=== PATIENT | male | born 1975 | race African-American/Black ===

== ENCOUNTER 2017-10-09 22:55 | Inpatient (IN) ==
[2017-10-09 23:29] LABS: Baso # (Auto) 0.1 th/mm3 (0.0-0.2); Baso % (Auto) 0.9 % (0.0-2.0); Eos # (Auto) 0.2 th/mm3 (0.0-0.4); Eos % (Auto) 1.7 % (0.0-4.0); Hematocrit 37.3 % (39.0-51.0); Hemoglobin 12.2 gm/dL (13.0-17.0); Lymph # (Auto) 4.9 th/mm3 (1.0-4.8); Lymph % (Auto) 53.8 % (9.0-44.0); Mean Corpuscular HGB Conc 32.7 % (32.0-36.0); Mean Corpuscular Hemoglobin 25.7 pg (27.0-34.0); Mean Corpuscular Volume 78.5 fL (80.0-100.0); Mono # (Auto) 1.4 th/mm3 (0.0-0.9); Mono % (Auto) 15.4 % (0.0-8.0); Neut # (Auto) 2.6 th/mm3 (1.8-7.7); Neut % (Auto) 28.2 % (16.0-70.0); Platelet Count 265 th/mm3 (150-450); Red Blood Count 4.75 mil/mm3 (4.50-5.90); Red Cell Distribution Width 16.5 % (11.6-17.2); White Blood Count 9.1 th/mm3 (4.0-11.0)
--- NOTE | 2017-10-09 23:37 | XR ---
EXAM DATE: 10/09/2017 11:26 PM EDT AGE/SEX: 42 years / Male INDICATIONS: Shortness of breath and congestion. CLINICAL DATA: This is the patient's initial encounter. Patient reports that signs and symptoms have been present for 2 weeks and indicates a pain score of 0/10. MEDICAL/SURGICAL HISTORY: None. None. COMPARISON: [facility] [place] 1[place] SINGLE AP, 09/29/2017. . FINDINGS: A single AP view of the chest is obtained. Cardiomegaly with small left pleural effusion and minimal left basilar density. Right lung clear The cardiomediastinal contours are unremarkable. Osseous stru ctures are intact. CONCLUSION: Cardiomegaly with left basilar density and small left pleural effusion Electronically signed by: Antony Kapadia MD 10/09/2017 11:36 PM EDT
[2017-10-09 23:44] LABS: Albumin 3.1 g/dL (3.4-5.0); Anion Gap 8 meq/L (5-15); Aspartate Aminotransferase 34 U/L (15-37); Blood Urea Nitrogen 14 mg/dL (7-18); Calcium 8.4 mg/dL (8.5-10.1); Carbon Dioxide 28.2 meq/L (21.0-32.0); Chloride 104 meq/L (98-107); Glomerular Filtration Rate 84 mL/min (>89); Glucose,Random 151 mg/dL (74-106); Lipase 140 U/L (73-393); Magnesium 1.9 mg/dL (1.5-2.5); Potassium 3.9 meq/L (3.5-5.1); Sodium 140 meq/L (136-145)
[2017-10-09 23:45] LABS: Activated Partial Thrombo Time 25.7 sec (24.3-30.1); INR 1.1 Ratio; Prothrombin Time 11.4 sec (9.8-11.6)
[2017-10-09 23:47] LABS: D-Dimer 1.44 mg/L FEU (0.00-0.50)
--- NOTE | 2017-10-09 23:49 | ED ---
HPI General Chief complaint: Extremity Problem,Nontraumatic Stated complaint: leg swelling Time Seen by Provider: 10/09/17 23:13 Source: patient Limitations: no limitations History of Present Illness HPI narrative: The patient is a 42 year old male who presents to the [facility] emergency department with a history of lower extremity edema that he reports is been going on for approximately 1 week. He reports that he was seen in the emergency department on September 29 related to the lower extremity edema as well as nasal discharge, sinus pressure over the right side of his face and right ear, along with a cough productive of green sputum. The patient reports that he had a chest x-ray done and was diagnosed with pneumonia. He was sent home with a prescription for antibiotic, however he reports that he did not fill the prescription due to cost. He denies having any recent fevers. He reports that the shortness of breath that he was previously experiencing has improved. He denies having any chest pain or chest pressure. He reports that initially he thought the lower extremity edema was related to being on his feet frequently as he had been working 2 jobs for 2 weeks, however he is no longer working 2 jobs and continues to have the edema. He reports that he continues to also have green nasal discharge from the right nare, a cough at times productive of green sputum, and facial pressure. He denies having any temperature intolerances. He reports that over the last year he has had weight loss without trying, however he is unsure how much as he does not normally weigh himself. On review of systems otherwise, the patient denies having any neck pain, abdominal pain, vomiting, diarrhea, urinary symptoms, or neurologic symptoms. Related Data Home Medications Medication Instructions Recorded Confirmed No Known Home Medications 10/09/17 10/09/17 Allergies Allergy/AdvReac Type Severity Reaction Status Date / Time No Known Allergies Allergy Verified 10/09/17 23:02 Review of Systems ROS: all other systems reviewed are negative (Except for that which was mentioned in the HPI.) FOR[facility]LY [facility] Family History Family History Other Family history normal Social History Social History Substance History: Active Abuse Second Hand Smoke Exposure: No Smoking Status: Current some day smoker Tobacco Type: Cigarettes How Often Do You Have a Drink Containing Alcohol: Monthly or less Recent Travel in [facility] within the Last 8 Weeks: No Recent Out of Country Travel within the Last 8 Weeks: No Substance Abuse Detail Marijuana: Substance Use Status: Active Immunization History Tetanus Immunization: Unsure Hx Influenza Vaccine This Season: No Exam Const General: cooperative, no acute distress and well developed Nutritional Appearance: well nourished Orientation: alert, awake and oriented x3 HENMT Head: normocephalic and atraumatic Nose: no nasal discharge and no epistaxis Mouth: moist mucous membranes Throat: posterior oropharynx normal and uvula midline Eyes Sclera: normal sclerae Pupils: PERRL Neck Neck: no meningeal signs, trachea midline and no JVD Resp Effort & Inspection: no use of accessory muscles Auscultation: clear to auscultation bilaterally (Decreased breath sounds audible in bilateral lung bases.), no crackles, no rhonchi and no wheezes Cardio Rate: tachycardic (Sinus tachycardia in the low 100s, no pulse deficits to the extremities on simultaneous auscultation and palpation of his radial artery) Rhythm: regular rhythm Heart Sounds: no gallops, no murmurs and no rubs GI Inspection: non-distended Palpation: soft, no hepatosplenomegaly and nontender Skin General: dry skin (warm) Neuro General: alert, awake and oriented x3 Cranial Nerves: other (No facial asymmetry.) Speech: speech normal Motor: no movement abnormalities noted Extrem General: normal to inspection (No calf tenderness on palpation. Negative Homans sign. No palpable cords. 2+ pulses in all 4 extremities.), no clubbing , no cyanosis and edema (2+ edema bilateral lower extremities.) Laterality: bilaterally Psych Mood: congruent mood Affect: normal affect Judgment: judgment good Course Consultations Consultation #1: The patient's case including history, pertinent physical examination findings, and laboratory studies were discussed with Dr. Dorantes. It was agreed that the patient would be admitted to the hospitalist service. Initial Documented Vital Signs Temperature 98.4 F 10/09/17 23:00 Pulse Rate 103 H 10/09/17 23:00 Respiratory Rate 18 10/09/17 23:00 Blood Pressure 126/90 10/09/17 23:00 Pulse Oximetry 99 10/09/17 23:00 Last Documented Vital Signs Temperature 98.2 F 10/10/17 11:52 Pulse Rate 93 H 10/10/17 12:00 Respiratory Rate 16 10/10/17 11:52 Blood Pressure 131/90 10/10/17 11:52 Pulse Oximetry 99 10/10/17 11:52 Medical Decision Making MDM Narrative Medical decision making narrative: During the course of the patient's emergency department visit, the patient's history, examination, and differential diagnosis were reviewed with the patient. The patient was placed on a alarm security or surveillance monitor with oximetry and frequent blood pressure monitoring. The patient had IV access obtained and blood work sent for analysis. A diagnostic evaluation was started regarding the patient's lower extremity edema, with reported shortness of breath a week ago diagnosed as pneumonia, treated with a course of antibiotic, however the patient reports that he was not able to fill the prescription due to cost. The patient's diagnostic evaluation is remarkable for a white count of 9.1, monocytosis at 15.4, platelets are 265 with a hemoglobin of 12.2, PT 11.4, PTT 25.7, d-dimer is elevated at 1.44, CTA to rule out PE was ordered. Chemistry is remarkable for a troponin I of less than 0.02, glucose 151, GFR of 84, calcium 8.4, BNP is elevated at 1700, CPK is within normal limits at 90. TSH is within normal limits. Radiologic studies are remarkable for a chest x-ray that shows cardiomegaly with left basilar density and small left pleural effusion, ultrasound of bilateral lower extremities reveals no evidence of DVT, CTA to rule out PE shows cardiomegaly with small bilateral pleural effusions, no pulmonary embolism. The patient was given Lasix 40 mg IV, aspirin 324 mg p.o. 1. The patient will be admitted to the hospital for new onset congestive heart failure evaluation and treatment. The patient's results were discussed with the patient, including the plan of care. I explained that further testing and/ or monitoring is indicated based on the patient's history, examination, and/ or laboratory findings. Therefore, I recommended admission for additional evaluation. The patient expressed understanding and was agreeable with this plan. The patient was admitted to the hospital in guarded condition and sent to a bed under the care of [facility] service. Differential Diagnosis Differential Diagnosis: Pneumonia, versus new onset congestive heart failure, versus acute coronary syndrome, versus cardiomyopathy related to endocrine disorder, versus cardiac arrhythmia, versus valvular abnormality Medical Records Medical records reviewed: Yes I reviewed the patient's medical records. Lab Data Lab results reviewed: Yes I reviewed the patient's lab results. Result diagrams: 10/09/17 23:10 10/09/17 23:10 Lab Results 10/09/17 10/09/17 10/09/17 Range/Units 23:10 23:10 23:10 WBC 9.1 (4.0-11.0) th/mm3 RBC 4.75 (4.50-5.90) mil/mm3 Hgb 12.2 L (13.0-17.0) gm/dL Hct 37.3 L (39.0-51.0) % MCV 78.5 L (80.0-100.0) fL MCH 25.7 L (27.0-34.0) pg MCHC 32.7 (32.0-36.0) % RDW 16.5 (11.6-17.2) % Plt Count 265 (150-450) th/mm3 MPV 8.0 (7.0-11.0) fL Neut % (Auto) 28.2 (16.0-70.0) % Lymph % (Auto) 53.8 H (9.0-44.0) % [place] % (Auto) 15.4 H (0.0-8.0) % Eos % (Auto) 1.7 (0.0-4.0) % Baso % (Auto) 0.9 (0.0-2.0) % Neut # (Auto) 2.6 (1.8-7.7) th/mm3 Lymph # (Auto) 4.9 H (1.0-4.8) th/mm3 [place] # (Auto) 1.4 H (0.0-0.9) th/mm3 Eos # (Auto) 0.2 (0.0-0.4) th/mm3 Baso # (Auto) 0.1 (0.0-0.2) th/mm3 WBC Differential . Differential Comment Auto diff final PT 11.4 (9.8-11.6) sec INR 1.1 Ratio APTT 25.7 (24.3-30.1) sec D-Dimer Quant (PE/DVT) 1.44 H (0.00-0.50) mg/L FEU Sodium 140 (136-145) meq/L Potassium 3.9 (3.5-5.1) meq/L Chloride 104 (98-107) meq/L Carbon Dioxide 28.2 (21.0-32.0) meq/L Anion Gap 8 (5-15) meq/L BUN 14 (7-18) mg/dL Creatinine 1.15 (0.60-1.30) mg/dL Estimated GFR 84 L (>89) mL/min Random Glucose 151 H (74-106) mg/dL Hemoglobin A1c (4.3-6.0) % Calcium 8.4 L (8.5-10.1) mg/dL Magnesium 1.9 (1.5-2.5) mg/dL Total Bilirubin 0.8 (0.2-1.0) mg/dL AST 34 (15-37) U/L ALT 52 (12-78) U/L Alkaline Phosphatase 116 (45-117) U/L Total Creatine Kinase 102 (39-308) U/L CK-MB (CK-2) 1.0 (0.5-3.6) ng/mL Troponin I 0.02 (0.02-0.05) ng/mL B-Natriuretic Peptide (0-100) pg/mL Total Protein 8.1 (6.4-8.2) g/dL Albumin 3.1 L (3.4-5.0) g/dL Lipase 140 (73-393) U/L TSH 1.810 (0.358-3.740) uIU/mL Free T4 (0.76-1.46) ng/dL 10/09/17 10/10/17 10/10/17 Range/Units 23:10 06:00 12:15 WBC (4.0-11.0) th/mm3 RBC (4.50-5.90) mil/mm3 Hgb (13.0-17.0) gm/dL Hct (39.0-51.0) % MCV (80.0-100.0) fL MCH (27.0-34.0) pg MCHC (32.0-36.0) % RDW (11.6-17.2) % Plt Count (150-450) th/mm3 MPV (7.0-11.0) fL Neut % (Auto) (16.0-70.0) % Lymph % (Auto) (9.0-44.0) % [place] % (Auto) (0.0-8.0) % Eos % (Auto) (0.0-4.0) % Baso % (Auto) (0.0-2.0) % Neut # (Auto) (1.8-7.7) th/mm3 Lymph # (Auto) (1.0-4.8) th/mm3 [place] # (Auto) (0.0-0.9) th/mm3 Eos # (Auto) (0.0-0.4) th/mm3 Baso # (Auto) (0.0-0.2) th/mm3 WBC Differential Differential Comment PT (9.8-11.6) sec INR Ratio APTT (24.3-30.1) sec D-Dimer Quant (PE/DVT) (0.00-0.50) mg/L FEU Sodium (136-145) meq/L Potassium (3.5-5.1) meq/L Chloride (98-107) meq/L Carbon Dioxide (21.0-32.0) meq/L Anion Gap (5-15) meq/L BUN (7-18) mg/dL Creatinine (0.60-1.30) mg/dL Estimated GFR (>89) mL/min Random Glucose (74-106) mg/dL Hemoglobin A1c (4.3-6.0) % Calcium (8.5-10.1) mg/dL Magnesium (1.5-2.5) mg/dL Total Bilirubin (0.2-1.0) mg/dL AST (15-37) U/L ALT (12-78) U/L Alkaline Phosphatase (45-117) U/L Total Creatine Kinase 87 90 (39-308) U/L CK-MB (CK-2) (0.5-3.6) ng/mL Troponin I Less than 0.02 L Less than 0.02 L (0.02-0.05) ng/mL B-Natriuretic Peptide 1700 H (0-100) pg/mL Total Protein (6.4-8.2) g/dL Albumin (3.4-5.0) g/dL Lipase (73-393) U/L TSH (0.358-3.740) uIU/mL Free T4 (0.76-1.46) ng/dL 10/10/17 10/10/17 10/10/17 Range/Units 12:15 12:15 14:24 WBC (4.0-11.0) th/mm3 RBC (4.50-5.90) mil/mm3 Hgb (13.0-17.0) gm/dL Hct (39.0-51.0) % MCV (80.0-100.0) fL MCH (27.0-34.0) pg MCHC (32.0-36.0) % RDW (11.6-17.2) % Plt Count (150-450) th/mm3 MPV (7.0-11.0) fL Neut % (Auto) (16.0-70.0) % Lymph % (Auto) (9.0-44.0) % [place] % (Auto) (0.0-8.0) % Eos % (Auto) (0.0-4.0) % Baso % (Auto) (0.0-2.0) % Neut # (Auto) (1.8-7.7) th/mm3 Lymph # (Auto) (1.0-4.8) th/mm3 [place] # (Auto) (0.0-0.9) th/mm3 Eos # (Auto) (0.0-0.4) th/mm3 Baso # (Auto) (0.0-0.2) th/mm3 WBC Differential Differential Comment PT (9.8-11.6) sec INR Ratio APTT (24.3-30.1) sec D-Dimer Quant (PE/DVT) (0.00-0.50) mg/L FEU Sodium (136-145) meq/L Potassium (3.5-5.1) meq/L Chloride (98-107) meq/L Carbon Dioxide (21.0-32.0) meq/L Anion Gap (5-15) meq/L BUN (7-18) mg/dL Creatinine (0.60-1.30) mg/dL Estimated GFR (>89) mL/min Random Glucose (74-106) mg/dL Hemoglobin A1c 7.8 H (4.3-6.0) % Calcium (8.5-10.1) mg/dL Magnesium (1.5-2.5) mg/dL Total Bilirubin (0.2-1.0) mg/dL AST (15-37) U/L ALT (12-78) U/L Alkaline Phosphatase (45-117) U/L Total Creatine Kinase (39-308) U/L CK-MB (CK-2) (0.5-3.6) ng/mL Troponin I (0.02-0.05) ng/mL B-Natriuretic Peptide (0-100) pg/mL Total Protein (6.4-8.2) g/dL Albumin (3.4-5.0) g/dL Lipase (73-393) U/L TSH 2.890 (0.358-3.740) uIU/mL Free T4 1.25 (0.76-1.46) ng/dL Imaging Data Radiologist's impression: Chest X-Ray 10/09/17 23:11 CONCLUSION: Cardiomegaly with left basilar density and small left pleural effusion Venous Doppler Study 10/09/17 23:12 CONCLUSION: 1. No DVT in either lower extremity Chest CTA 10/10/17 00:14 CONCLUSION: 1. Cardiomegaly and small bilateral pleural effusions. 2. No pulmonary embolism. ECG Data Attestation: I personally reviewed and interpreted this ECG as follows: Interpretation: The patient had a EKG done on arrival that shows a sinus tachycardia rate of 103, QRS duration 109 ms, QTC [address]-T wave abnormalities are noted. The patient is noted to have downsloping ST segments in lead II, V4, V5, V6, T-wave inversions in lead I, 2, aVL, V4, V5, V6. No acute ST segment elevation. Discharge Plan Discharge Disposition Patient Disposition: 30 Still Patient Discharge Details Diagnosis: New onset of congestive heart failure Physicians Team ED Provider: Paula Turner Primary Care Provider: Primary Care Rachel Donohue Attending Provider: Phong Childers Other Providers: Rei Alejo Discharge Interventions Interventions: ED Discharge Assessment Last Done: 10/10/17 10:25 Status ED Status: Left Department Discharge Information Discharge Date/Time: 10/10/17 10:51
[2017-10-09 23:56] LABS: Alanine Aminotransferase 52 U/L (12-78); Alkaline Phosphatase 116 U/L (45-117); Creatine Kinase 102 U/L (39-308); Total Protein 8.1 g/dL (6.4-8.2); Troponin I 0.02 ng/mL (0.02-0.05)
--- NOTE | 2017-10-10 01:02 | US ---
EXAM DATE: 10/10/2017 12:41 AM EDT AGE/SEX: 42 years / Male INDICATIONS: Bilateral leg swelling. CLINICAL DATA: This is the patient's initial encounter. Patient reports that signs and symptoms have been present for 2 weeks and indicates a pain score of 0/10. MEDICAL/SURGICAL HISTORY: . Bilateral leg swelling. None. COMPARISON: No prior exams available for comparison. TECHNIQUE: Venous ultrasound of both lower extremities was performed from the inguinal ligament to t he proximal calf. Real-time, color Doppler and spectral tracing, compression and augmentation techni ques were used. FINDINGS: Right Leg: Normal compression of the deep venous system from the inguinal region to the proximal trena f. No echogenic clot is seen. Normal response of the venous system to augmentation and respiration. Left Leg: Normal compression of the deep venous system from the inguinal region to the proximal calf . No echogenic clot is seen. Normal response of the venous system to augmentation and respiration. Other: None. CONCLUSION: 1. No DVT in either lower extremity Electronically signed by: Antony Kapadia MD 10/10/2017 1:01 AM EDT
--- NOTE | 2017-10-10 02:03 | CT ---
EXAM DATE: 10/10/2017 1:20 AM EDT AGE/SEX: 42 years / Male INDICATIONS: Pneumonia with swelling in legs. Elevated D-Dimer. CLINICAL DATA: This is the patient's initial encounter. Patient reports that signs and symptoms have been present for 3 days and indicates a pain score of 0/10. MEDICAL/SURGICAL HISTORY: None. None. RADIATION DOSE: 23.45 CTDI (mGy) COMPARISON: No prior exams available for comparison. TECHNIQUE: Volumetric scanning was performed using a multi-row detector CT scanner during bolus infu werner of 80 ml Omnipaque 350 (iohexol) nonionic water-soluble contrast as a single exam dose. The silke a was post processed with a variety of visualization algorithms including full volume maximum intensi ty projection and sliding thin slab reformation. Using automated exposure control and adjustment of t he mA and/or kV according to patient size, radiation dose was kept as low as reasonably achievable to obtain optimal diagnostic quality images. DICOM format image data is available electronically for r eview and comparison. FINDINGS: Pulmonary Arteries: No filling defects are seen in the pulmonary arteries out to the subsegmental ve ssels. The left and right pulmonary arteries are normal in diameter. Lung: No infiltrates seen. Effusion: Small bilateral pleural effusions. Mediastinum: No evidence of mediastinal or hilar adenopathy. Cardiomegaly Other: The axilla is unremarkable. CONCLUSION: 1. Cardiomegaly and small bilateral pleural effusions. 2. No pulmonary embolism. Electronically signed by: Antony Kapadia MD 10/10/2017 2:02 AM EDT
--- NOTE | 2017-10-10 02:40 | P.HP ---
History of Present Illness Service: [facility] Primary Care Physician: No Primary Care Physician History of Present Illness: 42-year-old male with no significant past medical history presents the emergency department for the evaluation of lower extremity edema. The patient reports he was seen last week in the emergency department where he was diagnosed with possible pneumonia, given a prescription for Levaquin which she did not fill secondary to financial reasons, and sent home. He reports that he has had shortness of breath for the past 2-3 weeks with orthopnea and paroxysmal nocturnal dyspnea. He has had bilateral lower extremity weakness for the past several weeks which has been worsening. He denies any chest pain. No fever/chills. Positive sinus pressure and productive cough. No abdominal pain. No nausea/vomiting/diarrhea. Review of Systems All other systems reviewed negative except as stated in HPI PMFSH - History History Provided By: Patient - Medical History Medical History: Medical History (Last Reviewed 10/09/17 @ 23:02 by Ruben Pate) Patient denies medical problems - Surgical History Surgical History: Surgical History (Last Reviewed 10/09/17 @ 23:02 by Ruben Pate) No history of previous surgery - Family History Family History: Family History (Last Updated 10/10/17 @ 02:35 by Tari Dorantes MD) Other Family history normal - Tobacco History Second Hand Smoke Exposure: Yes Tobacco Use In Past 30 Days: Yes Smoking Status: Current every day smoker Tobacco Type: Cigarettes, Pipe - Alcohol History How Often Do You Have a Drink Containing Alcohol: Monthly or less - Substance Use History Substance History: Active Abuse - Substance Use Type Marijuana Status: Active - Travel History Recent Travel in the [place] Within the Last 8 Weeks: No Recent Travel Out of the Country Within the Last 8 Weeks: No - Immunization History Tetanus Immunization: Unsure Hx Influenza Vaccine This Season: No Medications and Allergies Active Medications: Active Medications Sodium Chloride (Ns Flush) 2 ml IV.FLUSH UNSCH PRN PRN Reason: FLUSH AFTER USING IV ACCESS Allergies Allergy/AdvReac Type Severity Reaction Status Date / Time No Known Allergies Allergy Verified 10/09/17 23:02 Home Medications Medication Instructions Recorded Confirmed Type No Known Home Medications 10/09/17 10/09/17 History Exam Vital signs: Vital Signs 10/09/17 23:00 Temperature 98.4 F Pulse Rate 103 H Respiratory Rate 18 Blood Pressure 126/90 Pulse Oximetry 99 Intake & Output 10/09/17 10/09/17 10/10/17 06:59 18:59 06:59 Weight 100 kg Narrative: Gen.: No acute distress Head: Normocephalic. Atraumatic. EENT: Pupils equal round and reactive to light. Nose without drainage. Airway intact. Throat without injection. Cardiovascular: Regular rate and rhythm. No murmurs, rubs or gallops. Respiratory: Lungs clear to auscultation bilaterally. No wheezes or rhonchi. Abdomen: Soft, nontender, nondistended. No peritoneal signs. Musculoskeletal: No gross deformities. No edema. Skin: No obvious rashes or erythema. Neuro: Sensory and motor grossly intact. Cranial nerves II through XII grossly intact. Results - Labs CBC & Chem 7: 10/09/17 23:10 10/09/17 23:10 Labs: Laboratory Results - last 24 hr 10/09/17 10/09/17 10/09/17 23:10 23:10 23:10 WBC 9.1 RBC 4.75 Hgb 12.2 L Hct 37.3 L MCV 78.5 L MCH 25.7 L MCHC 32.7 RDW 16.5 Plt Count 265 MPV 8.0 Neut % (Auto) 28.2 Lymph % (Auto) 53.8 H [place] % (Auto) 15.4 H Eos % (Auto) 1.7 Baso % (Auto) 0.9 Neut # (Auto) 2.6 Lymph # (Auto) 4.9 H [place] # (Auto) 1.4 H Eos # (Auto) 0.2 Baso # (Auto) 0.1 WBC Differential . Differential Comment Auto diff final PT 11.4 INR 1.1 APTT 25.7 D-Dimer Quant (PE/DVT) 1.44 H Sodium 140 Potassium 3.9 Chloride 104 Carbon Dioxide 28.2 Anion Gap 8 BUN 14 Creatinine 1.15 Estimated GFR 84 L Random Glucose 151 H Calcium 8.4 L Magnesium 1.9 Total Bilirubin 0.8 AST 34 ALT 52 Alkaline Phosphatase 116 Total Creatine Kinase 102 CK-MB (CK-2) 1.0 Troponin I 0.02 B-Natriuretic Peptide Total Protein 8.1 Albumin 3.1 L Lipase 140 TSH 1.810 10/09/17 23:10 WBC RBC Hgb Hct MCV MCH MCHC RDW Plt Count MPV Neut % (Auto) Lymph % (Auto) [place] % (Auto) Eos % (Auto) Baso % (Auto) Neut # (Auto) Lymph # (Auto) [place] # (Auto) Eos # (Auto) Baso # (Auto) WBC Differential Differential Comment PT INR APTT D-Dimer Quant (PE/DVT) Sodium Potassium Chloride Carbon Dioxide Anion Gap BUN Creatinine Estimated GFR Random Glucose Calcium Magnesium Total Bilirubin AST ALT Alkaline Phosphatase Total Creatine Kinase CK-MB (CK-2) Troponin I B-Natriuretic Peptide 1700 H Total Protein Albumin Lipase TSH - Imaging Impressions Chest X-Ray 10/09/17 23:11 CONCLUSION: Cardiomegaly with left basilar density and small left pleural effusion Venous Doppler Study 10/09/17 23:12 CONCLUSION: 1. No DVT in either lower extremity Chest CTA 10/10/17 00:14 CONCLUSION: 1. Cardiomegaly and small bilateral pleural effusions. 2. No pulmonary embolism. Caprini VTE Risk Assessment Caprini VTE Risk Assessment: No/Low Risk (score <= 1) Caprini Risk Assessment Model: Point Value = 1 Point Value = 2 Point Value = 3 Point Value = 5 Age 41-60 Minor surgery BMI > 25 kg/m2 Swollen legs Varicose veins or History of unexplained or recurrent spontaneous Oral contraceptives or hormone replacement Sepsis (< 1 month) Serious lung disease, including pneumonia (< 1 month) Abnormal pulmonary function Acute myocardial infarction Congestive heart failure (< 1 month) History of inflammatory bowel disease Medical patient at bed rest Age 61-74 Arthroscopic surgery Major open surgery (> 45 min) Laparoscopic surgery (> 45 min) Malignancy Confined to bed (> 72 hours) Immobilizing plaster cast Central venous access Age >= 75 History of VTE Family history of VTE Factor V Leiden Prothrombin [id number] Lupus anticoagulant Anticardiolipin antibodies Elevated serum homocysteine Heparin-induced thrombocytopenia Other congenital or acquired thrombophilia Stroke (< 1 month) Elective arthroplasty Hip, pelvis, or leg fracture Acute spinal cord injury (< 1 month) Prophylaxis Regimen: Total Risk Factor Score Risk Level Prophylaxis Regimen 0-1 Low Early ambulation 2 Moderate Order ONE of the following: *Sequential Compression Device (SCD) *Heparin 5000 units SQ BID 3-4 Higher Order ONE of the following medications: *Heparin 5000 units SQ TID *Enoxaparin/Lovenox 40 mg SQ daily (WT < 150 kg, CrCl > 30 mL/min) *Enoxaparin/Lovenox 30 mg SQ daily (WT < 150 kg, CrCl > 10-29 mL/min) *Enoxaparin/Lovenox 30 mg SQ BID (WT < 150 kg, CrCl > 30 mL/min) AND/OR *Sequential Compression Device (SCD) 5 or more Highest Order ONE of the following medications: *Heparin 5000 units SQ TID (Preferred with Epidurals) *Enoxaparin/Lovenox 40 mg SQ daily (WT < 150 kg, CrCl > 30 mL/min) *Enoxaparin/Lovenox 30 mg SQ daily (WT < 150 kg, CrCl > 10-29 mL/min) *Enoxaparin/Lovenox 30 mg SQ BID (WT < 150 kg, CrCl > 30 mL/min) AND *Sequential Compression Device (SCD) Assessment and Plan - Plan Assessment/plan: 1. New onset CHF Patient with BNP of 1700 Symptoms consistent with CHF Chest x-ray significant for cardiomegaly with small left density and pleural effusion, personally reviewed EKG significant for downsloping ST segments in V4-V6 and T-wave inversions in I , II, V4-V6 Given EKG abnormalities and nothing for comparison, ACS rule out pending IV Lasix Echo pending Cardiology consulted, appreciate recommendations FEN N.p.o. Electrolytes: Monitor and replete as needed
[2017-10-10 07:39] LABS: Creatine Kinase 87 U/L (39-308)
--- NOTE | 2017-10-10 09:41 | P.PNIM ---
Subjective Interval history: 42-year-old male with no significant past medical history presents the emergency department for the evaluation of lower extremity edema. The patient reports he was seen last week in the emergency department where he was diagnosed with possible pneumonia, given a prescription for Levaquin which she did not fill secondary to financial reasons, and sent home. He reports that he has had shortness of breath for the past 2-3 weeks with orthopnea and paroxysmal nocturnal dyspnea. He has had bilateral lower extremity weakness for the past several weeks which has been worsening. He denies any chest pain. No fever/chills. Positive sinus pressure and productive cough. No abdominal pain. No nausea/vomiting/diarrhea. 10-10 AWAIT CARDIAC EVALUATIONS STATES IS IS URINATING WELL JOSE F [facility] Physical Exam Vital signs: Vital Signs 10/09/17 23:00 10/10/17 08:00 Temperature 98.4 F 97.8 F Pulse Rate 103 H 98 H Respiratory Rate 18 20 Blood Pressure 126/90 127/87 Pulse Oximetry 99 97 Intake & Output 10/09/17 10/10/17 10/10/17 18:59 06:59 18:59 Intake Total 0 / 0 Balance 0 / 0 Weight 100 kg Intake: Oral 0 / 0 Narrative: Awake alert and oriented 3 talkative and cooperative Gen.: No acute distress Head: Normocephalic. Atraumatic. EENT: Pupils equal round and reactive to light. Nose without drainage. Airway intact. Throat without injection. Neck is supple no obvious JVD Cardiovascular: Regular rate and rhythm. No murmurs, rubs or gallops. S1-S2 no S3 or S4 Respiratory: Lungs clear to auscultation bilaterally. No wheezes or rhonchi. Abdomen: Soft, nontender, nondistended. No peritoneal signs. Musculoskeletal: No gross deformities. Maybe +1 edema Skin: No obvious rashes or erythema. Neuro: Sensory and motor grossly intact. Cranial nerves II through XII grossly intact. Insight and judgment is good Mood and behavior is somewhat appropriate Results - Labs CBC & Chem 7: 10/09/17 23:10 10/09/17 23:10 Laboratory Results - last 24 hr 10/09/17 10/09/17 10/09/17 23:10 23:10 23:10 WBC 9.1 RBC 4.75 Hgb 12.2 L Hct 37.3 L MCV 78.5 L MCH 25.7 L MCHC 32.7 RDW 16.5 Plt Count 265 MPV 8.0 Neut % (Auto) 28.2 Lymph % (Auto) 53.8 H [place] % (Auto) 15.4 H Eos % (Auto) 1.7 Baso % (Auto) 0.9 Neut # (Auto) 2.6 Lymph # (Auto) 4.9 H [place] # (Auto) 1.4 H Eos # (Auto) 0.2 Baso # (Auto) 0.1 WBC Differential . Differential Comment Auto diff final PT 11.4 INR 1.1 APTT 25.7 D-Dimer Quant (PE/DVT) 1.44 H Sodium 140 Potassium 3.9 Chloride 104 Carbon Dioxide 28.2 Anion Gap 8 BUN 14 Creatinine 1.15 Estimated GFR 84 L Random Glucose 151 H Calcium 8.4 L Magnesium 1.9 Total Bilirubin 0.8 AST 34 ALT 52 Alkaline Phosphatase 116 Total Creatine Kinase 102 CK-MB (CK-2) 1.0 Troponin I 0.02 B-Natriuretic Peptide Total Protein 8.1 Albumin 3.1 L Lipase 140 TSH 1.810 10/09/17 10/10/17 23:10 06:00 WBC RBC Hgb Hct MCV MCH MCHC RDW Plt Count MPV Neut % (Auto) Lymph % (Auto) [place] % (Auto) Eos % (Auto) Baso % (Auto) Neut # (Auto) Lymph # (Auto) [place] # (Auto) Eos # (Auto) Baso # (Auto) WBC Differential Differential Comment PT INR APTT D-Dimer Quant (PE/DVT) Sodium Potassium Chloride Carbon Dioxide Anion Gap BUN Creatinine Estimated GFR Random Glucose Calcium Magnesium Total Bilirubin AST ALT Alkaline Phosphatase Total Creatine Kinase 87 CK-MB (CK-2) Troponin I Less than 0.02 L B-Natriuretic Peptide 1700 H Total Protein Albumin Lipase TSH - Imaging Impressions Chest X-Ray 10/09/17 23:11 CONCLUSION: Cardiomegaly with left basilar density and small left pleural effusion Venous Doppler Study 10/09/17 23:12 CONCLUSION: 1. No DVT in either lower extremity Chest CTA 10/10/17 00:14 CONCLUSION: 1. Cardiomegaly and small bilateral pleural effusions. 2. No pulmonary embolism. Assessment and Plan - Plan 1. New onset CHF Patient with BNP of 1700 Symptoms consistent with CHF Chest x-ray significant for cardiomegaly with small left density and pleural effusion, personally reviewed EKG significant for downsloping ST segments in V4-V6 and T-wave inversions in I , II, V4-V6 Given EKG abnormalities and nothing for comparison, ACS rule out pending IV Lasix Echo pending Cardiology consulted, appreciate recommendations AM LABS AWAIT ECHO FEN N.p.o. Electrolytes: Monitor and replete as needed Code Status: FULL CODE Discussed Condition With: RN AND PT Discharge Planning: PENDING CARDIAC CLEARANCE
--- NOTE | 2017-10-10 10:57 | P.CONCA ---
History of Present Illness Primary Care Provider: No Primary Care Physician PMFSH - History History Provided By: Patient - Medical History Medical History: Medical History (Last Reviewed 10/09/17 @ 23:02 by Ruben Pate) Patient denies medical problems - Surgical History Surgical History: Surgical History (Last Reviewed 10/09/17 @ 23:02 by Ruben Pate) No history of previous surgery - Family History Family History: Family History (Last Updated 10/10/17 @ 02:35 by Tari Dorantes MD) Other Family history normal - Tobacco History Second Hand Smoke Exposure: No Tobacco Use In Past 30 Days: No Smoking Status: Current some day smoker Tobacco Type: Cigarettes - Alcohol History How Often Do You Have a Drink Containing Alcohol: Monthly or less - Substance Use History Substance History: Active Abuse - Substance Use Type Marijuana Status: Active Route Used: Inhalation Frequency: Everyday Last Used: 10/09/17 Reason for Use: Sleep - Travel History Recent Travel in the [facility] Within the Last 8 Weeks: No Recent Travel Out of the Country Within the Last 8 Weeks: No - Immunization History Tetanus Immunization: Unsure Hx Influenza Vaccine This Season: No Medications and Allergies Active Medications: Active Medications Aspirin (Aspirin Chew) 81 mg PO DAILY COUNT INCLUDES THE [facility] Last Admin: 10/10/17 09:38 Dose: 81 mg Furosemide (Lasix Inj) 40 mg IV.PUSH BID@0900,1800 COUNT INCLUDES THE [facility] Last Admin: 10/10/17 09:38 Dose: 40 mg Sodium Chloride (Ns Flush) 2 ml IV.FLUSH BID COUNT INCLUDES THE [facility] Last Admin: 10/10/17 09:38 Dose: 2 ml Sodium Chloride (Ns Flush) 2 ml IV.FLUSH UNSCH PRN PRN Reason: FLUSH AFTER USING IV ACCESS Allergies Allergy/AdvReac Type Severity Reaction Status Date / Time No Known Allergies Allergy Verified 10/09/17 23:02 Home Medications Medication Instructions Recorded Confirmed Type No Known Home Medications 10/09/17 10/09/17 History Exam Vital signs: Vital Signs 10/09/17 23:00 10/10/17 08:00 Temperature 98.4 F 97.8 F Pulse Rate 103 H 98 H Respiratory Rate 18 20 Blood Pressure 126/90 127/87 Pulse Oximetry 99 97 Intake & Output 10/09/17 10/10/17 10/10/17 18:59 06:59 18:59 Intake Total 0 / 0 Balance 0 / 0 Weight 100 kg Intake: Oral 0 / 0 Results 10/09/17 23:10 10/09/17 23:10 Cardiac Enzymes 10/09/17 10/09/17 10/10/17 Range/Units 23:10 23:10 06:00 AST 34 (15-37) U/L CK-MB (CK-2) 1.0 (0.5-3.6) ng/mL Troponin I 0.02 Less than 0.02 L (0.02-0.05) ng/mL B-Natriuretic Peptide 1700 H (0-100) pg/mL Coagulation 10/09/17 10/09/17 Range/Units 23:10 23:10 PT 11.4 (9.8-11.6) sec APTT 25.7 (24.3-30.1) sec B-Natriuretic Peptide 1700 H (0-100) pg/mL CBC 10/09/17 Range/Units 23:10 WBC 9.1 (4.0-11.0) th/mm3 RBC 4.75 (4.50-5.90) mil/mm3 Hgb 12.2 L (13.0-17.0) gm/dL Hct 37.3 L (39.0-51.0) % Plt Count 265 (150-450) th/mm3 Neut # (Auto) 2.6 (1.8-7.7) th/mm3 Lymph # (Auto) 4.9 H (1.0-4.8) th/mm3 [place] # (Auto) 1.4 H (0.0-0.9) th/mm3 Eos # (Auto) 0.2 (0.0-0.4) th/mm3 Baso # (Auto) 0.1 (0.0-0.2) th/mm3 Comprehensive Metabolic Panel 10/09/17 Range/Units 23:10 Sodium 140 (136-145) meq/L Potassium 3.9 (3.5-5.1) meq/L Chloride 104 (98-107) meq/L Carbon Dioxide 28.2 (21.0-32.0) meq/L BUN 14 (7-18) mg/dL Creatinine 1.15 (0.60-1.30) mg/dL Calcium 8.4 L (8.5-10.1) mg/dL AST 34 (15-37) U/L ALT 52 (12-78) U/L Alkaline Phosphatase 116 (45-117) U/L Total Protein 8.1 (6.4-8.2) g/dL Albumin 3.1 L (3.4-5.0) g/dL Intake and Output 10/09/17 10/10/17 10/10/17 22:59 06:59 14:59 Intake Total 0 / 0 Balance 0 / 0 Intake: Oral 0 / 0 Other: Weight 100 kg Assessment and Plan - Plan Shortness of breath (see dictation) Agree with current plan by Dr. Childers Continue IV lasix. He has had a good response thus far. Will evaluate LV function by TTE. Will obtain one more troponin level. I think he would also benefit from outpatient sleep study. Thank you for allowing me to participate. Please feel free to contact me with any questions
[2017-10-10 13:29] LABS: Creatine Kinase 90 U/L (39-308)
--- NOTE | 2017-10-10 16:03 | ECG ---
Date Performed: 10/09/2017 Time Performed: 23:16:06 PTAGE: 42 years EKG: SINUS TACHYCARDIA POSSIBLE LEFT ATRIAL ENLARGEMENT ST DEVIATION AND MODERATE T-WAVE ABNORMA LITY, CONSIDER LATERAL ISCHEMIA ST DEVIATION AND MODERATE T-WAVE ABNORMALITY, CONSIDER INFERIOR ISCHE ANTONELLA ABNORMAL ECG NO PREVIOUS TRACING DOCTOR: Luis Powers Interpretating Date/Time 10/10/2017 16:01:04
[2017-10-10 16:12] LABS: Hemoglobin A1c 7.8 % (4.3-6.0)
--- NOTE | 2017-10-10 17:18 | ECHRPT ---
Indication: HEART FAILURE CONCLUSIONS The left ventricular systolic function is severely reduced with an estimated ejection fraction in th e range of 30-35%. Moderately dilated left ventricle. Trace mitral valve regurgitation. There is trace tricuspid valve regurgitation. Mild pulmonary valve regurgitation. BP: / HR: Rhythm: Technical Quality: FINDINGS LEFT VENTRICLE Moderately dilated left ventricle. Wall thickness is measured at the upper limits of normal. The left ventricular systolic function is severely reduced with an estimated ejection fraction in th e range of 30-35%. RIGHT VENTRICLE Grossly normal right ventricular size and systolic function. LEFT ATRIUM The left atrial size is mildly dilated. RIGHT ATRIUM The right atrial size is normal. ATRIAL SEPTUM Normal atrial septal thickness. AORTA The aortic root and proximal ascending aorta are normal in size on limited imaging. MITRAL VALVE Trace mitral valve regurgitation. Grossly normal appearsing valve AORTIC VALVE Probable trileaflet aortic valve. No aortic valve stenosis or regurgitation. TRICUSPID VALVE There is trace tricuspid valve regurgitation. The estimated pulmonary arterial pressure is 57 mmHg. PULMONARY VALVE Mild pulmonary valve regurgitation. VESSELS The inferior vena cava is normal in size. PERICARDIUM There is a trivial pericardial effusion present. Kaushal Olivares DO (Electronically Signed) Final Date:10 October 2017 17:17
[2017-10-11] MEDS ORDERED: Metoprolol Tartrate 25 MG Tablet PO SCH (05:00)
[2017-10-11 07:35] LABS: Baso # (Auto) 0.1 th/mm3 (0.0-0.2); Baso % (Auto) 0.8 % (0.0-2.0); Eos % (Auto) 0.5 % (0.0-4.0); Hematocrit 36.6 % (39.0-51.0); Hemoglobin 11.9 gm/dL (13.0-17.0); Lymph # (Auto) 4.1 th/mm3 (1.0-4.8); Lymph % (Auto) 42.1 % (9.0-44.0); Mean Corpuscular HGB Conc 32.7 % (32.0-36.0); Mean Corpuscular Hemoglobin 25.4 pg (27.0-34.0); Mean Corpuscular Volume 77.7 fL (80.0-100.0); Mono # (Auto) 1.6 th/mm3 (0.0-0.9); Mono % (Auto) 16.5 % (0.0-8.0); Neut # (Auto) 3.9 th/mm3 (1.8-7.7); Neut % (Auto) 40.1 % (16.0-70.0); Platelet Count 281 th/mm3 (150-450); Red Blood Count 4.71 mil/mm3 (4.50-5.90); Red Cell Distribution Width 16.1 % (11.6-17.2); White Blood Count 9.7 th/mm3 (4.0-11.0)
[2017-10-11 07:54] LABS: Albumin 2.7 g/dL (3.4-5.0); Anion Gap 9 meq/L (5-15); Aspartate Aminotransferase 29 U/L (15-37); Blood Urea Nitrogen 10 mg/dL (7-18); Calcium 8.4 mg/dL (8.5-10.1); Carbon Dioxide 27.3 meq/L (21.0-32.0); Chloride 102 meq/L (98-107); Glomerular Filtration Rate Greater Than 89 mL/min (>89); Glucose,Random 111 mg/dL (74-106); Magnesium 1.8 mg/dL (1.5-2.5); Potassium 3.4 meq/L (3.5-5.1); Sodium 138 meq/L (136-145)
[2017-10-11 07:59] LABS: Alanine Aminotransferase 41 U/L (12-78); Alkaline Phosphatase 94 U/L (45-117); Phosphorus 3.9 mg/dL (2.5-4.9); Total Protein 7.5 g/dL (6.4-8.2)
[2017-10-11] MEDS ORDERED: Dextrose 50% in Water 50 ML Vial IV.PUSH PRN ×2 (10:28→16:41)
--- NOTE | 2017-10-11 12:08 | P.PNIM ---
Subjective Interval history: 42-year-old male with no significant past medical history presents the emergency department for the evaluation of lower extremity edema. The patient reports he was seen last week in the emergency department where he was diagnosed with possible pneumonia, given a prescription for Levaquin which she did not fill secondary to financial reasons, and sent home. He reports that he has had shortness of breath for the past 2-3 weeks with orthopnea and paroxysmal nocturnal dyspnea. He has had bilateral lower extremity weakness for the past several weeks which has been worsening. He denies any chest pain. No fever/chills. Positive sinus pressure and productive cough. No abdominal pain. No nausea/vomiting/diarrhea. 8 AWAIT CARDIAC EVALUATIONS STATES IS IS URINATING WELL JOSE F RN AND PATIENT CONTINUE TO [facility] AM LABS 10-11 TO HAVE CARDIAC CATH LATER TODAY IS DIABETIC HGBA1C 7.8 THEREFORE DIABETIC AM LABS CONTINUE TO [place] JOSE F RN AND PT AND CARDIO AND CM AM LAB CONSULT DM EDUCATOR Physical Exam Vital signs: Vital Signs 10/10/17 16:00 10/10/17 19:40 10/10/17 20:00 Temperature 98.4 F 99.3 F Pulse Rate 106 H 101 H Respiratory Rate 20 Blood Pressure 124/82 123/74 Pulse Oximetry 94 L 98 98 10/11/17 00:00 10/11/17 07:38 10/11/17 08:00 Temperature 99.1 F 98.2 F Pulse Rate 92 H 97 H 98 H Respiratory Rate 18 16 Blood Pressure 115/74 135/93 H Pulse Oximetry 99 99 Intake & Output 10/10/17 10/11/17 10/11/17 18:59 06:59 18:59 Intake Total 360 / 360 Output Total 2500 / 2500 1100 / 1100 Balance -2140 / -2140 -1100 / -1100 Intake: Oral 360 / 360 Output: Urine 2500 / 2500 1100 / 1100 Other: # Voids 1 Narrative: Awake alert and oriented 3 talkative and cooperative Gen.: No acute distress Head: Normocephalic. Atraumatic. EENT: Pupils equal round and reactive to light. Nose without drainage. Airway intact. Throat without injection. Neck is supple no obvious JVD Cardiovascular: Regular rate and rhythm. No murmurs, rubs or gallops. S1-S2 no S3 or S4 Respiratory: Lungs clear to auscultation bilaterally. No wheezes or rhonchi. Abdomen: Soft, nontender, nondistended. No peritoneal signs. Musculoskeletal: No gross deformities. Maybe +1 edema Skin: No obvious rashes or erythema. Neuro: Sensory and motor grossly intact. Cranial nerves II through XII grossly intact. Insight and judgment is good Mood and behavior is somewhat appropriate Results - Labs CBC & Chem 7: 10/11/17 06:30 10/11/17 06:30 Laboratory Results - last 24 hr 10/10/17 10/10/17 10/10/17 12:15 12:15 12:15 WBC RBC Hgb Hct MCV MCH MCHC RDW Plt Count MPV Neut % (Auto) Lymph % (Auto) [place] % (Auto) Eos % (Auto) Baso % (Auto) Neut # (Auto) Lymph # (Auto) [place] # (Auto) Eos # (Auto) Baso # (Auto) WBC Differential Differential Comment Sodium Potassium Chloride Carbon Dioxide Anion Gap BUN Creatinine Estimated GFR Random Glucose Hemoglobin A1c Calcium Phosphorus Magnesium Total Bilirubin AST ALT Alkaline Phosphatase Total Creatine Kinase 90 Troponin I Less than 0.02 L Total Protein Albumin TSH 2.890 Free T4 1.25 10/10/17 10/11/17 10/11/17 14:24 06:30 06:30 WBC 9.7 RBC 4.71 Hgb 11.9 L Hct 36.6 L MCV 77.7 L MCH 25.4 L MCHC 32.7 RDW 16.1 Plt Count 281 MPV 8.0 Neut % (Auto) 40.1 Lymph % (Auto) 42.1 [place] % (Auto) 16.5 H Eos % (Auto) 0.5 Baso % (Auto) 0.8 Neut # (Auto) 3.9 Lymph # (Auto) 4.1 [place] # (Auto) 1.6 H Eos # (Auto) 0.0 Baso # (Auto) 0.1 WBC Differential . Differential Comment Auto diff final Sodium 138 Potassium 3.4 L Chloride 102 Carbon Dioxide 27.3 Anion Gap 9 BUN 10 Creatinine 0.94 Estimated GFR Greater than 89 Random Glucose 111 H Hemoglobin A1c 7.8 H Calcium 8.4 L Phosphorus 3.9 Magnesium 1.8 Total Bilirubin 0.9 AST 29 ALT 41 Alkaline Phosphatase 94 Total Creatine Kinase Troponin I Total Protein 7.5 D Albumin 2.7 L TSH Free T4 Assessment and Plan - Plan 1. New onset CHF Patient with BNP of 1700 Symptoms consistent with CHF Chest x-ray significant for cardiomegaly with small left density and pleural effusion, personally reviewed EKG significant for downsloping ST segments in V4-V6 and T-wave inversions in I , II, V4-V6 Given EKG abnormalities and nothing for comparison, ACS rule out pending IV Lasix Echo pending Cardiology consulted, appreciate recommendations AM LABS ECHO DM POSITIVE WITH HGBA1C 7.8 WILL NEED DM EDUCATION ETC FEN N.p.o. Electrolytes: Monitor and replete as needed Code Status: FULL CODE Discussed Condition With: RN AND PT AND CM AND CARDIOLOGY Discharge Planning: PENDING CARDIAC CLEARANCE
[2017-10-11] MEDS: Insulin NovoLOG Aspart Correctional Sugar Inj SQ SCH ×3 (13:13→21:33)
[2017-10-11] MEDS ORDERED: Heparin/NS PF Inj 1,500 ML ONE (13:24)
[2017-10-11] MEDS ORDERED: fentaNYL Citrate Inj 100 MCG/2 ML Ampul ONE (13:24)
[2017-10-11] MEDS ORDERED: Heparin 10,000 UNITS/10 ML Vial (for IV use) ONE (13:25)
--- NOTE | 2017-10-11 14:57 | CATHPROC ---
[facility] HIS Report Study Information Study Number Admission Scheduled Start Study Start [id number] Oct 10 2017 7:27PM 10/11/2017 Oct 11 2017 1:19PM [place] [facility] Cath Endovascular Study Admit Source Facility Department Emergency department [facility] - Fire Extinguisher Repairer Inspector Physician and Clinical Staff Initial MD [place], [place] Service Line Coordinator Brendon Fong RN Other cathlab, cathlab Recorder Radha Sanchez BSN Recorder Radha Hughes RCIS TECH2 Scrub Giovany Jay RCIS(BS) Procedures Performed Procedure Location (Site) Vessel Name Coronary Angiograms LCA Left Coronary Coronary Angiograms RCA Right Coronary Equipment Time Typing Office Worker Description Size Mfg Part Number Used/Scraped TRANSDUCER, TRUWAVE [id number] 13:59 LOWE ELDER * Used W/STOCKCOCK *[id number] [id number] *[id number] [id number] *[id number] 13:59 Captual BLANKET,WARM AIR CCL * Used *[id number] 13:59 Captual PACK, CCL CUSTOM * Used *[id number] 13:59 Captual SUPPORT, ARTERIAL ADULT 61252 *[id number] Used BAND, RADIAL COMPRESSION TR [id number] 14:36 Encision 29CM Used LARGE 29 *[id number] 13:59 Encision WIRE, EXCHANGE 260CM 3MMJ 260CM Used *[id number] WIRE, EXCHANGE STR 260CM [id number] 13:38 Pavilion Data MEDICAL 260CM Used .035 *[id number] 13:59 NAMIC MANIFOLD, 4 PORT * Used *[id number] 13:59 NYCOMED OMNIPAQUE, 350 MG, 150ML 150ML [id number] Used SHEATH, FR6 TRANSRADIAL [id number] 13:59 TERUMAll My Data MEDICAL FR 6 Used SLENDER 10CM *[id number] History: Allergies Allergy Reaction No Known Allergies History: Risk Factors Family History of Hypertension Dyslipidemia Previous KS Previous Heart Failure Premature CAD No No Yes No No Prior Valve Prior PCI Prior CABG Surgery No No No Cerebrovascular Peripheral Artery Chronic Lung On Dialysis Diabetes Disease Disease Disease No No No No Yes History: Symptoms/Diagnosis Selection Items SOB History: Stress Tests Stress or Imaging Studies Performed No History: Other Current Smoker Method Packs a Day Yes Cigarettes 1 Labs Hgb (g/dl) Hct (%) WBC (l/cumm) Platelets (thousands) 11.60-17.00 35.00-51.00 4.00-11.00 150.00-450.00 11.9 36.3 9.7 281 Glucose (mg/dl) BUN (mg/dl) Creatinine (mg/dl) BUN:Creatinine (1:x) 74.00-106.00 7.00-18.00 0.50-1.30 10.00-20.00 111 10 0.9 11.1 Na (meq/l) K (meq/l) Cl (meq/l) 136.00-145.00 3.50-5.10 98.00-107.00 138 3.4 102 INR (PTT:PT) 0.90-1.10 1.1 Troponin I (ng/ml) CPK (u/l) CPK-MB (ng/ML) 0.02-0.05 26.00-308.00 0.50-3.60 0.02 90 1.0 Medication Medication Total Dose (Bolus/Oral) Medication Total Dosage/Unit 1% XYLOCAINE 5 mL FENTANYL 50 mcg RADIAL COCKTAIL 5 mL (Bolus) VERSED 2 mg Medications (Bolus/Oral) Medication Time Given Dosage/Unit Administered By Reason VERSED 10/11/2017 1:50:52 PM 2 mg Hetal, Brendon 2 mg VERSED given in lab by Brendon Fong RN in Right Antecubital via Peripheral IV. Ordered by Madison Paris. FENTANYL 10/11/2017 1:51:24 PM 50 mcg Hetal, Brendon 50 mcg FENTANYL given in lab by Brendon Fong RN in Right Antecubital via Peripheral IV. Ordered by Madison Delgado. 1% XYLOCAINE 10/11/2017 1:53:05 PM 5 mL Madison Paris 5 mL 1% XYLOCAINE given in lab by Madison Paris in Right Radial via Subcutaneous. Ordered by Sonali Paris. Ntg 200mcg Verapamil 2.5mg Heparin RADIAL COCKTAIL 10/11/2017 1:59:40 PM 5 mL (Bolus) Madison Paris 2500U 5 mL (Bolus) RADIAL COCKTAIL given in lab by Madison Paris via Radial. Using [Solution Name]. Ordered by Madison Paris. Reason: Ntg 200mcg Verapamil 2.5mg . Medication (Drip) Medication Time Given Dosage/Unit Concentration/Unit Diluent (ml) Solution IV Solutions 10/11/2017 1:19:50 PM 0 mL (IV) 500 NaCl .9 IV Solutions given in lab by Brendon Fong RN in Right Antecubital via Peripheral IV. Pump/Drip Flow = 20 ml/hr using NaCl .9. Initial Case Assessment Cardiovascular HR Rhythm NIBP Chest Pain 85 sr 131/90 0 Edema Present None Circulatory - Right Pulses Dorsalis Pedis Femoral Radial 2 2 2 Scale (0,1,2,3,4,d) Circulatory - Left Pulses Dorsalis Pedis Femoral Radial 2 2 Scale (0,1,2,3,4,d) Neurological State Oriented to time-place- Alert Moves all extremities person Respiration - General Respiration Rate SpO2 (%) (B/min) 15 100 Final Case Assessment Cardiovascular HR Rhythm NIBP Chest Pain 88 sr 132/89 0 Circulatory - Right Pulses Dorsalis Pedis Femoral 2 2 Scale (0,1,2,3,4,d) Circulatory - Left Pulses Dorsalis Pedis Femoral 2 2 Scale (0,1,2,3,4,d) Neurological State Oriented to time-place- Alert Moves all extremities person Respiration - General Respiration Rate SpO2 (%) (B/min) 14 99 Chronological Log Time Study Chronological Log 13:19:34 Patient arrived via Bed. 13:19:34 Patient Name, D.O.B, / Armband Verified By R.N. 13:19:35 Consent signed by the physician and the patient and verified by the Fire Extinguisher Repairer Inspector staff. 13:19:36 Pre-op and post- op instructions given; patient acknowledges understanding of instructions. 13:19:37 Presedation assessment performed by Fire Extinguisher Repairer Inspector RN. 13:19:41 Allens test performed on the right radial and ulnar artery. 13:19:42 Immediate Presedation assesment performed by physician. 13:19:43 Patient has been NPO for More than 6Hrs. 13:19:43 Skin Breakdown-none 13:19:47 Patient Warmer Placed on the Table. 13:19:47 Lauro Prominences Protected 13:19:49 A # 20 IV was noted in the Antecubital (right). Grade = patent IV Solutions given in lab by Brendon Fong RN in Right Antecubital via Peripheral IV. Pump/Drip Flow = 20 ml/hr using 13:19:50 NaCl .9. 13:19:51 History and physical on the chart or being dictated. Vitals capture started with the following parameters, Patient=Adult, Interval=5 min, Initial Pr ierwhj=998 mmHg, 13:29:26 Deflation Rate=5 mmHg, Cuff placed on Left Arm 13:30:02 HR=87 bpm, BFXE=366/90 mmhg, XhJ8=804 % Assessment: Initial Case, HR=85 BPM, Rhythm=sr, ZJZV=042/90 mmhg, Chest Pain=0, Edema=None Right Pulses: Kirk Ped=2, Femoral=2, Radial=2 13:30:40 Left Pulses: Kirk Ped=2, Femoral=2 Neurological: State=Alert, Ox3, LEE Respiration: Resp=15 B/min, CpM8=566 % 13:33:29 Right groin and right wrist prepped with 2% chlorhexidine, and draped after a 3 min. waitin g time. 13:35:03 HR=97 bpm, SUIN=387/90 mmhg, SpO2=99.0 %, Resp=15 B/min 13:36:17 Reference ECG taken 13:40:02 HR=89 bpm, INVN=981/92 mmhg, SuV5=186.0 %, Resp=18 B/min 13:43:07 paged 13:43:41 Pressure channel 1 zeroed. 13:45:03 HR=88 bpm, SBZQ=368/92 mmhg, SpO2=98.0 %, Resp=15 B/min 13:49:42 MD arrived. 13:50:04 HR=86 bpm, VDQH=508/89 mmhg, SpO2=99.0 %, Resp=11 B/min 13:50:52 2 mg VERSED given in lab by Brendon Fong RN in Right Antecubital via Peripheral IV. Ordere d by Madison Paris. 13:51:24 50 mcg FENTANYL given in lab by Brendon Fong RN in Right Antecubital via Peripheral IV. Or dered by Madison Paris. Time Out. Correct patient, correct procedure, correct physician, labs, allergies, and equipment verified with fish farm laborer 13:52:49 team present. Fire risk assesment completed (see hard stop sheet for coding). Time Out Conc urred by MD and individual staff in procedure. 13:53:05 Case Start 13:53:05 5 mL 1% XYLOCAINE given in lab by Madison Paris in Right Radial via Subcutaneous. Ordered by Madison Paris. 13:55:03 HR=88 bpm, GAEW=385/91 mmhg 13:58:24 Access site was Right Radial Artery . A SHEATH, FR6 TRANSRADIAL SLENDER 10CM FR 6 was advanced into the Radial (right) using the Perc utaneous 13:58:37 technique. 5 mL (Bolus) RADIAL COCKTAIL given in lab by Madison Paris via Radial. Using [Solution Name]. Or dered by Madison Paris. 13:59:40 Reason: Ntg 200mcg Verapamil 2.5mg . 14:00:04 HR=88 bpm, LVSI=147/99 mmhg A JR 4.0 INFINITI CATHETER FR 5 was advanced over a wire. OMNIPAQUE, 350 MG, 150ML 150ML was us ed for 14:00:42 injections. Recorded Pressure: LV, HR=89, Condition=Condition 1 14:01:33 (Left Ventricle) LV 127/13/30 Recorded Pressure: LV, Ao, HR=87, Condition=Condition 1 14:01:55 (Left Ventricle) LV 125/6/25, (Aorta) Ao 127/92/109 14:02:33 The RCA was injected and visualized at various angles. OMNIPAQUE, 350 MG, 150ML 150ML used . 14:05:05 HR=84 bpm, QPSB=587/90 mmhg, SpO2=91.0 %, Resp=19 B/min After removing the current catheter a JL 3.5 INFINITI CATHETER FR 5 was advanced over a WIRE, E XCHANGE 260CM 14:06:20 3MMJ 260CM. 14:07:39 The LCA was injected and visualized at various angles. OMNIPAQUE, 350 MG, 150ML 150ML used . 14:10:07 HR=78 bpm, PZRV=836/90 mmhg, SpO2=91.0 %, Resp=16 B/min 14:11:25 Catheter was removed 14:15:06 HR=89 bpm, UKLR=923/92 mmhg, SpO2=97 %, Resp=16 B/min 14:20:07 HR=86 bpm, DHAQ=194/87 mmhg, SpO2=95.0 % 14:21:51 Consulting CV surgery 14:25:06 HR=87 bpm, ZTOP=622/89 mmhg, SpO2=99 %, Resp=10 B/min 14:30:07 HR=88 bpm, ICTW=925/93 mmhg, SpO2=98.0 %, Resp=10 B/min 14:31:42 Catheter was removed 14:33:29 Case End (Physician broke scrub) 14:35:08 HR=87 bpm, DNCU=928/89 mmhg, SpO2=99.0 % Radial Compression Device Used. 12 mLs of air placed in BAND, RADIAL COMPRESSION TR LARGE 29 29 CM. Affected 14:35:57 hand 98 % O2 saturation. 14:36:43 No case complications noted. 14:36:44 Cine recording checked. 14:36:46 Bedside Report will be given. Assessment: Final Case, HR=88 BPM, Rhythm=sr, HNOT=347/89 mmhg, Chest Pain=0 Right Pulses: Kirk Ped=2, Femoral=2 14:36:49 Left Pulses: Kirk Ped=2, Femoral=2 Neurological: State=Alert, Ox3, LEE Respiration: Resp=14 B/min, SpO2=99 % 14:40:05 NDOJ=223/74 mmhg 14:44:22 Patient moved to bed 14:46:14 Patient transported to [facility] End Study - Contrast Media Used In Study Contrast Total Opened (mL) Total Used (mL) Total Wasted (mL) Omnipaque 60 60 0 End Study - Maximum Contrast Load Max Contrast Load (mL) 555.6 End Study - Radiation Exposure Fluoro Time Fluoro Dose (mGy) Cine Dose (uGym2) (minutes) 2.9 1218 6478 End Study - Sheaths Sheaths Pulled By Sheath Hold Time (min) Giovany Jay End Study - Patient Disposition Complications Transferred To Interventional Outcome No Telemetry Bed No attempt made
--- NOTE | 2017-10-11 15:00 | P.CONCA ---
History of Present Illness Consult date: 10/10/17 Reason for Consult: Shortness of breath Primary Care Provider: No Primary Care Physician History of Present Illness: This is a very pleasant 42 year old male who presents to ER with complaints of progressive shortness of breath over the past month. The patient also endorses lower extremity edema and weight gain. He denies any prior cardiac history. He was recently seen in the ER and given a prescription for Levaquin which he did not fill secondary to financial reasons. Additionally, the patient endorses fatigue. Review of Systems Constitutional: Reports fatigue Respiratory: Reports shortness of breath PMFSH - History History Provided By: Patient - Medical History Medical History: Medical History (Last Reviewed 10/09/17 @ 23:02 by Ruben Pate) Patient denies medical problems - Surgical History Surgical History: Surgical History (Last Reviewed 10/09/17 @ 23:02 by Ruben Pate) No history of previous surgery - Family History Family History: Family History (Last Updated 10/10/17 @ 02:35 by Tari Dorantes MD) Other Family history normal - Tobacco History Second Hand Smoke Exposure: No Tobacco Use In Past 30 Days: No Smoking Status: Current some day smoker Tobacco Type: Cigarettes - Alcohol History How Often Do You Have a Drink Containing Alcohol: Monthly or less - Substance Use History Substance History: Active Abuse - Substance Use Type Marijuana Status: Active Route Used: Inhalation Frequency: Everyday Last Used: 10/09/17 Reason for Use: Sleep - Travel History Recent Travel in the [place] Within the Last 8 Weeks: No Recent Travel Out of the Country Within the Last 8 Weeks: No - Immunization History Tetanus Immunization: Unsure Hx Influenza Vaccine This Season: No Medications and Allergies Active Medications: Active Medications Aspirin (Aspirin Chew) 81 mg PO DAILY [facility] Last Admin: 10/11/17 09:05 Dose: 81 mg Carvedilol (Coreg) 3.125 mg PO BID [facility] Last Admin: 10/11/17 09:05 Dose: 3.125 mg Dextrose (D50w Vial) 50 ml IV.PUSH UNSCH PRN PRN Reason: PER HYPOGLYCEMIA PROTOCOL Furosemide (Lasix Inj) 40 mg IV.PUSH BID@0900,1800 [facility] Last Admin: 10/11/17 09:07 Dose: 40 mg Glucagon (Glucagon Inj) 1 mg OTHER PRN PRN PRN Reason: for Hypoglycemia Protocol Insulin Aspart (Novolog Insulin Correctional Sugar Inj) 0 unit SQ ACHS AND 3AM KRISTI; Protocol Last Admin: 10/11/17 13:13 Dose: Not Given Potassium Chloride (K-Dur) 20 meq PO BID KRISTI Sodium Chloride (Ns Flush) 2 ml IV.FLUSH BID KRISTI Last Admin: 10/11/17 09:08 Dose: 2 ml Sodium Chloride (Ns Flush) 2 ml IV.FLUSH UNSCH PRN PRN Reason: FLUSH AFTER USING IV ACCESS Last Admin: 10/10/17 20:20 Dose: 2 ml Allergies Allergy/AdvReac Type Severity Reaction Status Date / Time No Known Allergies Allergy Verified 10/09/17 23:02 Home Medications Medication Instructions Recorded Confirmed Type No Known Home Medications 10/09/17 10/09/17 History Exam Vital signs: Vital Signs 10/10/17 16:00 10/10/17 19:40 10/10/17 20:00 Temperature 98.4 F 99.3 F Pulse Rate 106 H 101 H Respiratory Rate 20 Blood Pressure 124/82 123/74 Pulse Oximetry 94 L 98 98 10/11/17 00:00 10/11/17 07:38 10/11/17 08:00 Temperature 99.1 F 98.2 F Pulse Rate 92 H 97 H 98 H Respiratory Rate 18 16 Blood Pressure 115/74 135/93 H Pulse Oximetry 99 99 10/11/17 12:00 Temperature 98.3 F Pulse Rate 90 Respiratory Rate 16 Blood Pressure 130/96 H Pulse Oximetry 100 Intake & Output 10/10/17 10/11/17 10/11/17 18:59 06:59 18:59 Intake Total 360 / 360 Output Total 2500 / 2500 1100 / 1100 Balance -2140 / -2140 -1100 / -1100 Intake: Oral 360 / 360 Output: Urine 2500 / 2500 1100 / 1100 Other: # Voids 1 - Constitutional no acute distress - Routine HEENT Exam Head: Present: normocephalic Eye: Present: EOMI ENT: Present: mucous membranes moist - Routine Neck Exam Present: supple, JVD - Routine Respiratory Exam Present: crackles (at the bases) - Routine Cardiovascular Exam Present: RRR, S1, S2 - Routine Abdominal Exam Present: soft, normoactive bowel sounds - Routine Extremities Exam Present: edema - Routine Neurological Exam Present: alert, oriented X3 Results 10/11/17 06:30 10/11/17 06:30 Cardiac Enzymes 10/11/17 Range/Units 06:30 AST 29 (15-37) U/L CBC 10/11/17 Range/Units 06:30 WBC 9.7 (4.0-11.0) th/mm3 RBC 4.71 (4.50-5.90) mil/mm3 Hgb 11.9 L (13.0-17.0) gm/dL Hct 36.6 L (39.0-51.0) % Plt Count 281 (150-450) th/mm3 Neut # (Auto) 3.9 (1.8-7.7) th/mm3 Lymph # (Auto) 4.1 (1.0-4.8) th/mm3 Parke # (Auto) 1.6 H (0.0-0.9) th/mm3 Eos # (Auto) 0.0 (0.0-0.4) th/mm3 Baso # (Auto) 0.1 (0.0-0.2) th/mm3 Comprehensive Metabolic Panel 10/11/17 Range/Units 06:30 Sodium 138 (136-145) meq/L Potassium 3.4 L (3.5-5.1) meq/L Chloride 102 (98-107) meq/L Carbon Dioxide 27.3 (21.0-32.0) meq/L BUN 10 (7-18) mg/dL Creatinine 0.94 (0.60-1.30) mg/dL Calcium 8.4 L (8.5-10.1) mg/dL AST 29 (15-37) U/L ALT 41 (12-78) U/L Alkaline Phosphatase 94 (45-117) U/L Total Protein 7.5 D (6.4-8.2) g/dL Albumin 2.7 L (3.4-5.0) g/dL Intake and Output 10/10/17 10/11/17 10/11/17 22:59 06:59 14:59 Intake Total 360 / 360 Output Total 2500 / 2500 1100 / 1100 Balance -2140 / -2140 -1100 / -1100 Intake: Oral 360 / 360 Output: Urine 2500 / 2500 1100 / 1100 Other: # Voids 1 Assessment and Plan - Plan Shortness of breath Agree with current plan by Dr. Childers Continue IV lasix. He has had a good response thus far. Will evaluate LV function by TTE.
[2017-10-11] MEDS ORDERED: Misc Info for Pharmacy OTHER STA (15:21)
[2017-10-11] MEDS ORDERED: Insulin Regular (For Infusion) 100 UNIT in Sodium Chlor 0.9% Inj 99 ML IV.CONT PRN (16:41)
[2017-10-11] MEDS ORDERED: Sodium Chlor 0.9% Inj 77.5 ML, Papaverine Inj 60 MG, Nitroglycerin Inj 100 MCG, dilTIAZ... IRRIGATION SCH ×3 (16:45)
[2017-10-11] MEDS ORDERED: Chlorhexidine 4% Topical 120 APPLIC/120 ML Bottle TOPICAL SCH (16:45)
--- NOTE | 2017-10-11 16:48 | P.PNCA ---
Subjective Interval history: SOB improving. Having good urine output. Physical Exam Vital signs: Vital Signs 10/10/17 19:40 10/10/17 20:00 10/11/17 00:00 Temperature 99.3 F 99.1 F Pulse Rate 101 H 92 H Respiratory Rate 20 18 Blood Pressure 123/74 115/74 Pulse Oximetry 98 98 99 10/11/17 07:38 10/11/17 08:00 10/11/17 12:00 Temperature 98.2 F 98.3 F Pulse Rate 97 H 98 H 90 Respiratory Rate 16 16 Blood Pressure 135/93 H 130/96 H Pulse Oximetry 99 100 10/11/17 16:00 Temperature 98.2 F Pulse Rate 93 H Respiratory Rate 18 Blood Pressure 130/91 H Pulse Oximetry 100 Intake & Output 10/10/17 10/11/17 10/11/17 18:59 06:59 18:59 Intake Total 360 / 360 5 / 5 Output Total 2500 / 2500 1100 / 1100 Balance -2140 / -2140 -1095 / -1095 Intake: IV 5 / 5 Heparin/NS PF Inj 1,500 ML @ 0 5 / 5 mls/hr .ROUTE .[facility] Rx#: [id number] Oral 360 / 360 Output: Urine 2500 / 2500 1100 / 1100 Other: # Voids 1 Date of Last Bowel Movement 10/10/17 - Constitutional no acute distress - Routine HEENT Exam Head: Present: normocephalic - Routine Neck Exam Present: supple - Routine Respiratory Exam Present: crackles (mild at the base) - Routine Cardiovascular Exam Present: RRR, S1, S2 - Routine Abdominal Exam Present: soft, normoactive bowel sounds - Routine Extremities Exam Present: edema Assessment and Plan - Plan New onset Systolic HF EF 30-35% Multivessel CAD Plan: His cath today shows [address] Ruiz will be evaluating the patient for CABG. Will continue IV lasix . Continue to uptitrate coreg. Will hold on ISSAC -i for now with plans of adding on this new medication.
[2017-10-11] MEDS ORDERED: ceFAZolin Inj 2,000 MG in Sodium Chlor 0.9% Inj 80 ML IV.SIG SCH (17:00)
[2017-10-11] MEDS ORDERED: Sodium Chloride 0.65% Nasal Spray 45 ML Bottle EACH NARE PRN (17:06)
--- NOTE | 2017-10-11 17:06 | P.PNCV ---
- Note Subjective/Hospital Course: pt seen and evaluated / full consult to follow RISK SCORES About the STS Risk Calculator Procedure: CAB Only Risk of Mortality: 0.527% Morbidity or Mortality: 13.295% Long Length of Stay: 4.101% Short Length of Stay: 50.6% Permanent Stroke: 0.585% Prolonged Ventilation: 9.758% DSW Infection: 0.595% Renal Failure: 1.845% Reoperation: 4.546% Objective: Vital Signs - 24 hr 10/10/17 19:40 10/10/17 20:00 10/11/17 00:00 Temperature 99.3 F 99.1 F Pulse Rate 101 H 92 H Respiratory Rate 20 18 Blood Pressure 123/74 115/74 Pulse Oximetry 98 98 99 10/11/17 07:38 10/11/17 08:00 10/11/17 12:00 Temperature 98.2 F 98.3 F Pulse Rate 97 H 98 H 90 Respiratory Rate 16 16 Blood Pressure 135/93 H 130/96 H Pulse Oximetry 99 100 10/11/17 16:00 Temperature 98.2 F Pulse Rate 93 H Respiratory Rate 18 Blood Pressure 130/91 H Pulse Oximetry 100 Labs: Laboratory Results - last 12 hr 10/11/17 10/11/17 10/11/17 06:30 06:30 12:22 WBC 9.7 RBC 4.71 Hgb 11.9 L Hct 36.6 L MCV 77.7 L MCH 25.4 L MCHC 32.7 RDW 16.1 Plt Count 281 MPV 8.0 Neut % (Auto) 40.1 Lymph % (Auto) 42.1 Glenn % (Auto) 16.5 H Eos % (Auto) 0.5 Baso % (Auto) 0.8 Neut # (Auto) 3.9 Lymph # (Auto) 4.1 Glenn # (Auto) 1.6 H Eos # (Auto) 0.0 Baso # (Auto) 0.1 WBC Differential . Differential Comment Auto diff final Sodium 138 Potassium 3.4 L Chloride 102 Carbon Dioxide 27.3 Anion Gap 9 BUN 10 Creatinine 0.94 Estimated GFR Greater than 89 POC Glucose 135 H Random Glucose 111 H Calcium 8.4 L Phosphorus 3.9 Magnesium 1.8 Total Bilirubin 0.9 AST 29 ALT 41 Alkaline Phosphatase 94 Total Protein 7.5 D Albumin 2.7 L Result Diagrams: 10/11/17 06:30 10/11/17 06:30
[2017-10-11] MEDS: Levofloxacin 500 mg Premix Inj 500 MG/100 ML PIGGYBACK IV.SIG SCH (17:50)
--- NOTE | 2017-10-11 18:35 | US ---
EXAM DATE: 10/11/2017 6:18 PM EDT AGE/SEX: 42 years / Male INDICATIONS: Pre op cardiac surgery. CLINICAL DATA: This is the patient's initial encounter. Patient reports that signs and symptoms have been present for 1 day and indicates a pain score of 0/10. MEDICAL/SURGICAL HISTORY: None. Edema. None. COMPARISON: [facility] [place], US VENOUS DOPPLER LEG BI, 10/10/2017. . MEASUREMENTS: RIGHT THIGH: Proximal:__5 mm Mid:__ Non-visualized Distal:__Non-visualized LEFT THIGH: Proximal:__4 mm Mid:__2 mm Distal:__Non-visualized RIGHT CALF: Proximal:__Non-visualized Mid:__Non-visualized Distal:__Non-visualized LEFT CALF: Proximal:__Non-visualized Mid:__Non-visualized Distal:__Non-visualized FINDINGS: The venous system of the lower extremities are patent by color Doppler imaging. Measurements of the leg veins (in mm) are listed above. CONCLUSION: 1. Venous mapping study as described. Electronically signed by: Rolo Rivera MD 10/11/2017 6:34 PM EDT
--- NOTE | 2017-10-11 18:35 | US ---
EXAM DATE: 10/11/2017 6:14 PM EDT AGE/SEX: 42 years / Male INDICATIONS: Pre op cardiac surgery. CLINICAL DATA: This is the patient's initial encounter. Patient reports that signs and symptoms have been present for 1 day and indicates a pain score of 0/10. MEDICAL/SURGICAL HISTORY: None. Edema. None. COMPARISON: No prior exams available for comparison. VELOCITY PARAMETERS: ICA/CCA Ratio: Right 1.2 , Left 0.9 ICA: Right 64 cm/sec, Left 67 cm/sec CCA: Right 54 cm/sec, Left 77 cm/sec ECA: Right 85 cm/sec, Left 78 cm/sec Vertebral: Right 38 cm/sec antegrade, Left 59 cm/sec antegrade FINDINGS: Right Carotid: No significant plaque is visualized.The waveforms are within normal limits. Left Carotid: No significant plaque is visualized. The waveforms are within normal limits. Other: None. CONCLUSION: Unremarkable exam with no evidence of stenosis. Electronically signed by: Rolo Rivera MD 10/11/2017 6:34 PM EDT
[2017-10-11 19:34] LABS: Bilirubin,Urine Negative (Negative); Clarity,Urine Clear (Clear); Color,Urine Colorless (Yellw/Straw); Glucose,Urine (UA) Negative (Negative); Leukocyte Esterase,Urine Negative (Negative); Nitrite,Urine Negative (Negative); Specific Gravity,Urine 1.005 (1.002-1.035)
[2017-10-11] MEDS: Magnesium Oxide 400 MG Tablet PO SCH (21:32)
[2017-10-12] MEDS: Insulin NovoLOG Aspart Correctional Sugar Inj SQ SCH ×5 (04:29→22:01)
[2017-10-12 06:26] LABS: Baso % (Auto) 0.5 % (0.0-2.0); Eos % (Auto) 0.5 % (0.0-4.0); Hematocrit 38.6 % (39.0-51.0); Hemoglobin 12.7 gm/dL (13.0-17.0); Lymph # (Auto) 3.7 th/mm3 (1.0-4.8); Lymph % (Auto) 46.5 % (9.0-44.0); Mean Corpuscular HGB Conc 32.8 % (32.0-36.0); Mean Corpuscular Hemoglobin 25.4 pg (27.0-34.0); Mean Corpuscular Volume 77.4 fL (80.0-100.0); Mean Platelet Volume 7.7 fL (7.0-11.0); Mono # (Auto) 1.4 th/mm3 (0.0-0.9); Mono % (Auto) 17.4 % (0.0-8.0); Neut # (Auto) 2.8 th/mm3 (1.8-7.7); Neut % (Auto) 35.1 % (16.0-70.0); Platelet Count 280 th/mm3 (150-450); Red Blood Count 4.99 mil/mm3 (4.50-5.90); Red Cell Distribution Width 16.5 % (11.6-17.2); White Blood Count 7.9 th/mm3 (4.0-11.0)
[2017-10-12 06:52] LABS: Alanine Aminotransferase 34 U/L (12-78); Albumin 2.7 g/dL (3.4-5.0); Anion Gap 8 meq/L (5-15); Aspartate Aminotransferase 18 U/L (15-37); Blood Urea Nitrogen 11 mg/dL (7-18); Calcium 8.6 mg/dL (8.5-10.1); Carbon Dioxide 29.4 meq/L (21.0-32.0); Chloride 102 meq/L (98-107); Glomerular Filtration Rate Greater Than 89 mL/min (>89); Glucose,Random 108 mg/dL (74-106); Phosphorus 4.3 mg/dL (2.5-4.9); Potassium 3.8 meq/L (3.5-5.1); Sodium 139 meq/L (136-145)
[2017-10-12 06:53] LABS: Alkaline Phosphatase 88 U/L (45-117); Total Protein 7.6 g/dL (6.4-8.2)
--- NOTE | 2017-10-12 09:56 | MB ---
cc: Alisha Ruiz MD DATE: 10/11/2017 HISTORY OF PRESENT ILLNESS: A 42-year-old male recently seen in the emergency department with shortness of breath, cough, congestion, also sinus pressure, nasal discharge. They did a chest x-ray and he was diagnosed with pneumonia. He was sent home with a prescription for Levaquin, which he did not fill. He has been using saline spray at home. He re-presented to the emergency room with increasing lower extremity edema, still short of breath with no improvement. They did a CTA of the chest which showed no evidence of pulmonary emboli, some small bilateral effusions. They did venous Dopplers, which were negative for deep vein thrombosis. They did a 2-D echocardiogram, which showed an ejection fraction of 30 to 35%, moderately dilated left ventricle trace mitral valve regurgitation, trace tricuspid valve regurgitation. He underwent cardiac catheterization for evaluation. Proximal LAD was 80% stenosed and mid distal LAD 100%, the diagonal 100%, circumflex 80%, OM 90%, and RCA 100%. We were consulted to evaluate for coronary artery bypass grafting. PAST MEDICAL HISTORY: 1. Recent sinusitis questionable. 2. Recent pneumonia. Has no primary care physician. PAST SURGICAL HISTORY:. No past surgical history. ALLERGIES: NO KNOWN ALLERGIES. MEDICATIONS: No medications at home, other than the ocean saline spray. FAMILY HISTORY: Father in his 50s with heart disease. Mother has had a history of a stent. SOCIAL HISTORY: The patient is , 3 children. Works at [employer] in [employer]. Lives with his mother. REVIEW OF SYSTEMS: As above in the HPI. Other 12 systems unremarkable. PHYSICAL EXAMINATION: VITAL SIGNS: Blood pressure 130/90, heart rate of 90, afebrile. GENERAL: The patient is awake, alert, in no acute distress. HEENT: Head is normocephalic, atraumatic. Pupils equal and reactive. He does have some mild tenderness over to the right side of his maxillary area. Complaining of some greenish nasal discharge. NECK: Supple. No JVD. HEART: S1, S2. Regular rate and rhythm. No audible rubs, murmurs, or gallops. LUNGS: He has got some faint crackles in the left lower base. ABDOMEN: Soft, nontender. No masses or organomegaly. EXTREMITIES: Reveal trace edema with good distal pulses. LABORATORY DATA: Shows hemoglobin of 11.9, hematocrit 36, white cell count of 9.7, platelet count of 281. Sodium 138, potassium 3.4, which has been replaced, BUN of 10, creatinine 0.94, glucose was 150. Hemoglobin A1c 7.8. Troponin less than 0.02. TSH 2.8. RADIOLOGICAL EXAM: As above. ASSESSMENT: This is a 42-year-old male with acute CHF, cardiomyopathy, EF of 30%, moderately dilated left ventricle, also with 3-vessel coronary artery disease. PLAN: 1. At this time is to continue to maximize his diuresis. Recheck his BNP in the morning. Replace his electrolytes. 2. He also has recent history of some sinusitis. We will re-add some Levaquin IV. Also, some saline spray. 3. He has some undiagnosed previous diabetes mellitus, now with hemoglobin A1c of 7.8. We will need a healthcare educator to speak with the patient and evaluate for patient assistance social insurance administrator. 4. Plan will be for surgery once cleared, and further evaluation per Dr. Ruiz on perhaps or Tuesday of this week. Dictated by VIC Morton MD JAMEL Heredia/mendel , 05:13 PM , 05:23 PM
[2017-10-12] MEDS: Magnesium Oxide 400 MG Tablet PO SCH ×2 (10:19→22:00)
--- NOTE | 2017-10-12 12:28 | P.PNCV ---
- Note Subjective/Hospital Course: 42-year-old male recently seen in the emergency department with shortness of breath, cough, congestion, also sinus pressure, nasal discharge. They did a chest x-ray and he was diagnosed with pneumonia. He was sent home with a prescription for Levaquin, which he did not fill. He has been using saline spray at home. He re-presented to the emergency room with increasing lower extremity edema, still short of breath with no improvement. They did a CTA of the chest which showed no evidence of pulmonary emboli, some small bilateral effusions. They did venous Dopplers, which were negative for deep vein thrombosis. They did a 2-D echocardiogram, which showed an ejection fraction of 30 to 35%, moderately dilated left ventricle trace mitral valve regurgitation, trace tricuspid valve regurgitation. He underwent cardiac catheterization for evaluation. Proximal LAD was 80% stenosed and mid distal LAD 100%, the diagonal 100%, circumflex 80%, OM 90%, and RCA 100%. We were consulted to evaluate for coronary artery bypass grafting. 10/12 BNP now 1230 feels better, continue diuresis , recheck BNP in am eval surgery Tuesday or Tuesday when BNP<900 Objective: Vital Signs - 24 hr 10/11/17 15:00 10/11/17 16:00 10/11/17 17:00 Temperature 98.2 F Pulse Rate 88 96 H 94 H Respiratory Rate 18 Blood Pressure 130/91 H Pulse Oximetry 100 10/11/17 18:00 10/11/17 19:00 10/11/17 20:00 Temperature Pulse Rate 98 H 98 H 98 H Respiratory Rate Blood Pressure Pulse Oximetry 10/11/17 21:00 10/11/17 22:00 10/11/17 23:00 Temperature Pulse Rate 94 H 100 H 96 H Respiratory Rate Blood Pressure Pulse Oximetry 10/12/17 00:00 10/12/17 01:00 10/12/17 02:00 Temperature Pulse Rate 96 H 86 86 Respiratory Rate Blood Pressure Pulse Oximetry 10/12/17 03:00 10/12/17 04:00 10/12/17 05:00 Temperature Pulse Rate 87 87 89 Respiratory Rate Blood Pressure Pulse Oximetry 10/12/17 06:00 10/12/17 07:00 10/12/17 08:00 Temperature 97.9 F Pulse Rate 88 93 H 92 H Respiratory Rate 14 Blood Pressure 123/88 Pulse Oximetry 100 10/12/17 09:00 10/12/17 10:00 10/12/17 11:00 Temperature Pulse Rate 92 H 92 H 93 H Respiratory Rate Blood Pressure Pulse Oximetry GENERAL: A&O x 3 SKIN: Warm and dry HEAD: Normocephalic. EYES: No scleral icterus. No injection or drainage. NECK: Supple, trachea midline. No JVD or lymphadenopathy. CARDIOVASCULAR: Regular rate and rhythm without murmurs, gallops, or rubs. RESPIRATORY: Breath sounds equal bilaterally. No accessory muscle use. diminished in bases , few basilar crackles GASTROINTESTINAL: Abdomen soft, non-tender, nondistended. MUSCULOSKELETAL: No cyanosis, or edema. BACK: Nontender without obvious deformity. No CVA tenderness. Labs: Laboratory Results - last 12 hr 10/12/17 10/12/17 10/12/17 03:30 05:48 05:48 WBC 7.9 RBC 4.99 Hgb 12.7 L Hct 38.6 L MCV 77.4 L MCH 25.4 L MCHC 32.8 RDW 16.5 Plt Count 280 MPV 7.7 Neut % (Auto) 35.1 Lymph % (Auto) 46.5 H Stokes % (Auto) 17.4 H Eos % (Auto) 0.5 Baso % (Auto) 0.5 Neut # (Auto) 2.8 Lymph # (Auto) 3.7 Stokes # (Auto) 1.4 H Eos # (Auto) 0.0 Baso # (Auto) 0.0 WBC Differential . Differential Comment Auto diff final Sodium 139 Potassium 3.8 Chloride 102 Carbon Dioxide 29.4 Anion Gap 8 BUN 11 Creatinine 1.06 Estimated GFR Greater than 89 POC Glucose 114 H Random Glucose 108 H Calcium 8.6 Phosphorus 4.3 Magnesium 2.0 Total Bilirubin 0.8 AST 18 ALT 34 Alkaline Phosphatase 88 B-Natriuretic Peptide Total Protein 7.6 Albumin 2.7 L Blood Type Blood Type Recheck Antibody Screen Antibody Identification Antigen Identification MTS Gel Crossmatch 10/12/17 10/12/17 10/12/17 05:48 05:48 07:50 WBC RBC Hgb Hct MCV MCH MCHC RDW Plt Count MPV Neut % (Auto) Lymph % (Auto) [place] % (Auto) Eos % (Auto) Baso % (Auto) Neut # (Auto) Lymph # (Auto) [place] # (Auto) Eos # (Auto) Baso # (Auto) WBC Differential Differential Comment Sodium Potassium Chloride Carbon Dioxide Anion Gap BUN Creatinine Estimated GFR POC Glucose 118 H Random Glucose Calcium Phosphorus Magnesium Total Bilirubin AST ALT Alkaline Phosphatase B-Natriuretic Peptide 1231 H Total Protein Albumin Blood Type B Positive Blood Type Recheck Required Antibody Screen Positive H Antibody Identification Antigen Identification Leb Antigen - NEGATIVE MTS Gel Crossmatch See Detail 10/12/17 10/12/17 10:54 11:38 WBC RBC Hgb Hct MCV MCH MCHC RDW Plt Count MPV Neut % (Auto) Lymph % (Auto) [place] % (Auto) Eos % (Auto) Baso % (Auto) Neut # (Auto) Lymph # (Auto) [place] # (Auto) Eos # (Auto) Baso # (Auto) WBC Differential Differential Comment Sodium Potassium Chloride Carbon Dioxide Anion Gap BUN Creatinine Estimated GFR POC Glucose 228 H Random Glucose Calcium Phosphorus Magnesium Total Bilirubin AST ALT Alkaline Phosphatase B-Natriuretic Peptide Total Protein Albumin Blood Type Blood Type Recheck Antibody Screen Antibody Identification Anti-Winter Antigen Identification MTS Gel Crossmatch Result Diagrams: 10/12/17 05:48 10/12/17 05:48 - Plan (1) CAD (coronary artery disease), [place] coronary artery Plan: ASA, statin BB eval for surgery when BNP <900 (2) New onset of congestive heart failure Plan: continue diuresis BB start irma after surgery
--- NOTE | 2017-10-12 15:56 | P.PNIM ---
Subjective Interval history: Patient says he is feeling well. Denies any chest pain shortness of breath. Denies nausea or vomiting. Had a bowel movement today. Physical Exam Vital signs: Vital Signs 10/11/17 16:00 10/11/17 17:00 10/11/17 18:00 Temperature 98.2 F Pulse Rate 96 H 94 H 98 H Respiratory Rate 18 Blood Pressure 130/91 H Pulse Oximetry 100 10/11/17 19:00 10/11/17 20:00 10/11/17 21:00 Temperature Pulse Rate 98 H 98 H 94 H Respiratory Rate Blood Pressure Pulse Oximetry 10/11/17 22:00 10/11/17 23:00 10/12/17 00:00 Temperature Pulse Rate 100 H 96 H 96 H Respiratory Rate Blood Pressure Pulse Oximetry 10/12/17 01:00 10/12/17 02:00 10/12/17 03:00 Temperature Pulse Rate 86 86 87 Respiratory Rate Blood Pressure Pulse Oximetry 10/12/17 04:00 10/12/17 05:00 10/12/17 06:00 Temperature Pulse Rate 87 89 88 Respiratory Rate Blood Pressure Pulse Oximetry 10/12/17 07:00 10/12/17 08:00 10/12/17 09:00 Temperature 97.9 F Pulse Rate 93 H 92 H 92 H Respiratory Rate 14 Blood Pressure 123/88 Pulse Oximetry 100 10/12/17 10:00 10/12/17 11:00 10/12/17 12:00 Temperature 98.0 F Pulse Rate 92 H 89 92 H Respiratory Rate 14 Blood Pressure 116/83 Pulse Oximetry 100 10/12/17 13:00 10/12/17 14:00 Temperature Pulse Rate 93 H 92 H Respiratory Rate Blood Pressure Pulse Oximetry Intake & Output 10/11/17 10/12/17 10/12/17 18:59 06:59 18:59 Intake Total 365 / 365 580 / 580 Output Total 1450 / 1450 850 / 850 Balance -1085 / -1085 -270 / -270 Weight 87.8 kg Intake: IV 5 / 5 100 / 100 Heparin/NS PF Inj 1,500 ML @ 0 5 / 5 mls/hr .ROUTE .[facility] Rx#: [id number] Levaquin 500 mg Premix Inj 500 100 / 100 mg In 100 ml @ 100 mls/hr IV. SIG Q24H [facility] Rx#:[id number] Oral 360 / 360 480 / 480 Output: Urine 1450 / 1450 850 / 850 Other: # Voids 1 Date of Last Bowel Movement 10/10/17 10/11/17 # Bowel Movements 0 Narrative: GENERAL: Patient sitting up in bed. Smiling. Appears comfortable. Alert and oriented 3. SKIN: Warm and dry. HEAD: Normocephalic. EYES: No scleral icterus. No injection or drainage. NECK: Supple, trachea midline. No JVD. CARDIOVASCULAR: Regular rate and rhythm without murmurs, gallops, or rubs. RESPIRATORY: Breath sounds equal bilaterally. No accessory muscle use. GASTROINTESTINAL: Abdomen soft, non-tender, nondistended. MUSCULOSKELETAL: No cyanosis. +1 peripheral edema. BACK: Nontender without obvious deformity. No CVA tenderness. Results - Labs CBC & Chem 7: 10/12/17 05:48 10/12/17 05:48 Laboratory Results - last 24 hr 10/11/17 10/11/17 10/11/17 17:25 19:00 19:00 WBC RBC Hgb Hct MCV MCH MCHC RDW Plt Count MPV Neut % (Auto) Lymph % (Auto) [place] % (Auto) Eos % (Auto) Baso % (Auto) Neut # (Auto) Lymph # (Auto) [place] # (Auto) Eos # (Auto) Baso # (Auto) WBC Differential Differential Comment Sodium Potassium Chloride Carbon Dioxide Anion Gap BUN Creatinine Estimated GFR POC Glucose 165 H Random Glucose Calcium Phosphorus Magnesium Total Bilirubin AST ALT Alkaline Phosphatase B-Natriuretic Peptide Total Protein Albumin Urine Color Colorless Urine Clarity Clear Urine pH 7.0 Ur Specific [place] 1.005 Urine Protein Negative Urine Glucose (UA) Negative Urine Ketones Negative Urine Occult Blood Negative Urine Nitrate Negative Urine Bilirubin Negative Urine Urobilinogen Less than 2 Ur Leukocyte Esterase Negative Urine RBC 1 Urine WBC 2 Micro UA Comment Culture not ind Urine Culture Comments Culture not ind Nasal Screen MRSA (PCR) Not detected Blood Type Blood Type Recheck Antibody Screen Antibody Identification Antigen Identification MTS Gel Crossmatch 10/11/17 10/12/17 10/12/17 21:24 03:30 05:48 WBC 7.9 RBC 4.99 Hgb 12.7 L Hct 38.6 L MCV 77.4 L MCH 25.4 L MCHC 32.8 RDW 16.5 Plt Count 280 MPV 7.7 Neut % (Auto) 35.1 Lymph % (Auto) 46.5 H [place] % (Auto) 17.4 H Eos % (Auto) 0.5 Baso % (Auto) 0.5 Neut # (Auto) 2.8 Lymph # (Auto) 3.7 [place] # (Auto) 1.4 H Eos # (Auto) 0.0 Baso # (Auto) 0.0 WBC Differential . Differential Comment Auto diff final Sodium Potassium Chloride Carbon Dioxide Anion Gap BUN Creatinine Estimated GFR POC Glucose 158 H 114 H Random Glucose Calcium Phosphorus Magnesium Total Bilirubin AST ALT Alkaline Phosphatase B-Natriuretic Peptide Total Protein Albumin Urine Color Urine Clarity Urine pH Ur Specific [place] Urine Protein Urine Glucose (UA) Urine Ketones Urine Occult Blood Urine Nitrate Urine Bilirubin Urine Urobilinogen Ur Leukocyte Esterase Urine RBC Urine WBC Micro UA Comment Urine Culture Comments Nasal Screen MRSA (PCR) Blood Type Blood Type Recheck Antibody Screen Antibody Identification Antigen Identification MTS Gel Crossmatch 10/12/17 10/12/17 10/12/17 05:48 05:48 05:48 WBC RBC Hgb Hct MCV MCH MCHC RDW Plt Count MPV Neut % (Auto) Lymph % (Auto) [place] % (Auto) Eos % (Auto) Baso % (Auto) Neut # (Auto) Lymph # (Auto) [place] # (Auto) Eos # (Auto) Baso # (Auto) WBC Differential Differential Comment Sodium 139 Potassium 3.8 Chloride 102 Carbon Dioxide 29.4 Anion Gap 8 BUN 11 Creatinine 1.06 Estimated GFR Greater than 89 POC Glucose Random Glucose 108 H Calcium 8.6 Phosphorus 4.3 Magnesium 2.0 Total Bilirubin 0.8 AST 18 ALT 34 Alkaline Phosphatase 88 B-Natriuretic Peptide 1231 H Total Protein 7.6 Albumin 2.7 L Urine Color Urine Clarity Urine pH Ur Specific [place] Urine Protein Urine Glucose (UA) Urine Ketones Urine Occult Blood Urine Nitrate Urine Bilirubin Urine Urobilinogen Ur Leukocyte Esterase Urine RBC Urine WBC Micro UA Comment Urine Culture Comments Nasal Screen MRSA (PCR) Blood Type B Positive Blood Type Recheck Required Antibody Screen Positive H Antibody Identification Antigen Identification Leb Antigen - NEGATIVE MTS Gel Crossmatch See Detail 10/12/17 10/12/17 10/12/17 07:50 10:54 11:38 WBC RBC Hgb Hct MCV MCH MCHC RDW Plt Count MPV Neut % (Auto) Lymph % (Auto) [place] % (Auto) Eos % (Auto) Baso % (Auto) Neut # (Auto) Lymph # (Auto) [place] # (Auto) Eos # (Auto) Baso # (Auto) WBC Differential Differential Comment Sodium Potassium Chloride Carbon Dioxide Anion Gap BUN Creatinine Estimated GFR POC Glucose 118 H 228 H Random Glucose Calcium Phosphorus Magnesium Total Bilirubin AST ALT Alkaline Phosphatase B-Natriuretic Peptide Total Protein Albumin Urine Color Urine Clarity Urine pH Ur Specific [place] Urine Protein Urine Glucose (UA) Urine Ketones Urine Occult Blood Urine Nitrate Urine Bilirubin Urine Urobilinogen Ur Leukocyte Esterase Urine RBC Urine WBC Micro UA Comment Urine Culture Comments Nasal Screen MRSA (PCR) Blood Type Blood Type Recheck Antibody Screen Antibody Identification Anti-Winter Antigen Identification MTS Gel Crossmatch - Imaging Impressions Carotid Doppler Study 10/11/17 16:41 CONCLUSION: Unremarkable exam with no evidence of stenosis. Lower Extremity Ultrasound 10/11/17 16:41 CONCLUSION: 1. Venous mapping study as described. Assessment and Plan - Plan //New onset CHF Patient with BNP of 1700 Symptoms consistent with CHF Chest x-ray significant for cardiomegaly with small left density and pleural effusion, personally reviewed EKG significant for downsloping ST segments in V4-V6 and T-wave inversions in I , II, V4-V6 Given EKG abnormalities and nothing for comparison, ACS rule out pending IV Lasix Echo with EF 3035%. Cardiology consulted, appreciate recommendations = 10/12. Cardiothoracic surgery following. Continue diuresis. Will plan for surgery when BNP less than 900. AM LABS ECHO DM POSITIVE WITH HGBA1C 7.8 WILL NEED DM EDUCATION ETC FEN N.p.o. Electrolytes: Monitor and replete as needed Discharge Planning: Pending cardiothoracic and cardiology clearance.
[2017-10-12] MEDS: Levofloxacin 500 mg Premix Inj 500 MG/100 ML PIGGYBACK IV.SIG SCH (17:41)
[2017-10-12 18:51] LABS: Amphetamine Screen,Urine Neg (Neg); Barbiturate Screen,Urine Neg (Neg); Cannabinoid Screen,Urine Pos (Neg); Cocaine Screen,Urine Neg (Neg); Opiate Screen,Urine Neg (Neg)
[2017-10-13] MEDS: Insulin NovoLOG Aspart Correctional Sugar Inj SQ SCH ×5 (03:23→20:58)
[2017-10-13 06:14] LABS: Calcium 8.7 mg/dL (8.5-10.1); Carbon Dioxide 28.2 meq/L (21.0-32.0); Potassium 3.9 meq/L (3.5-5.1)
--- NOTE | 2017-10-13 09:43 | P.PNIM ---
Subjective Interval history: Patient says he is feeling all right. Denies any chest pain or shortness of breath. Denies nausea or vomiting. Physical Exam Vital signs: Vital Signs 10/12/17 10:00 10/12/17 11:00 10/12/17 12:00 Temperature 98.0 F Pulse Rate 92 H 89 92 H Respiratory Rate 14 Blood Pressure 116/83 Pulse Oximetry 100 10/12/17 13:00 10/12/17 14:00 10/12/17 15:00 Temperature 98.2 F Pulse Rate 93 H 92 H 91 H Respiratory Rate 16 Blood Pressure Pulse Oximetry 100 10/12/17 16:00 10/12/17 17:00 10/12/17 18:00 Temperature Pulse Rate 95 H 88 96 H Respiratory Rate Blood Pressure Pulse Oximetry 10/12/17 20:00 10/12/17 21:00 10/12/17 22:00 Temperature 98.7 F Pulse Rate 96 H 98 H 90 Respiratory Rate 18 Blood Pressure 111/78 Pulse Oximetry 99 10/12/17 23:00 10/13/17 00:00 10/13/17 01:00 Temperature 98.6 F Pulse Rate 90 88 102 H Respiratory Rate 18 Blood Pressure 114/71 Pulse Oximetry 100 10/13/17 02:00 10/13/17 03:00 10/13/17 04:00 Temperature 98.7 F Pulse Rate 94 H 92 H 86 Respiratory Rate 18 Blood Pressure 114/73 Pulse Oximetry 100 10/13/17 05:00 10/13/17 06:00 Temperature Pulse Rate 84 88 Respiratory Rate Blood Pressure Pulse Oximetry Intake & Output 10/12/17 10/13/17 10/13/17 18:59 06:59 18:59 Intake Total 840 / 840 340 / 340 Output Total 970 / 970 625 / 625 Balance -130 / -130 -285 / -285 Weight 86.9 kg Intake: IV 100 / 100 Levaquin 500 mg Premix Inj 500 100 / 100 mg In 100 ml @ 100 mls/hr IV. SIG Q24H [facility] Rx#:[id number] Oral 840 / 840 240 / 240 Output: Urine 970 / 970 625 / 625 Other: Date of Last Bowel Movement 10/12/17 10/12/17 # Bowel Movements 1 Narrative: GENERAL: Patient sitting up in bed. Smiling. Appears comfortable. Alert and oriented 3. SKIN: Warm and dry. HEAD: Normocephalic. EYES: No scleral icterus. No injection or drainage. NECK: Supple, trachea midline. No JVD. CARDIOVASCULAR: Regular rate and rhythm without murmurs, gallops, or rubs. RESPIRATORY: Breath sounds equal bilaterally. No accessory muscle use. GASTROINTESTINAL: Abdomen soft, non-tender, nondistended. MUSCULOSKELETAL: No cyanosis. Trace peripheral edema. BACK: Nontender without obvious deformity. No CVA tenderness. Results - Labs CBC & Chem 7: 10/12/17 05:48 10/13/17 05:10 Laboratory Results - last 24 hr 10/12/17 10/12/17 10/12/17 05:48 10:54 11:38 Sodium Potassium Chloride Carbon Dioxide Anion Gap BUN Creatinine Estimated GFR POC Glucose 228 H Random Glucose Calcium Magnesium B-Natriuretic Peptide Urine Opiates Screen Ur Barbiturates Screen Ur Amphetamines Screen U Benzodiazepines Scrn Urine Cocaine Screen U Cannabinoids Screen Blood Type B Positive Blood Type Recheck Required Antibody Screen Positive H Antibody Identification Anti-Winter Antigen Identification Leb Antigen - NEGATIVE MTS Gel Crossmatch See Detail 10/12/17 10/12/17 10/12/17 17:04 18:23 21:53 Sodium Potassium Chloride Carbon Dioxide Anion Gap BUN Creatinine Estimated GFR POC Glucose 97 118 H Random Glucose Calcium Magnesium B-Natriuretic Peptide Urine Opiates Screen Neg Ur Barbiturates Screen Neg Ur Amphetamines Screen Neg U Benzodiazepines Scrn Neg Urine Cocaine Screen Neg U Cannabinoids Screen Pos H Blood Type Blood Type Recheck Antibody Screen Antibody Identification Antigen Identification MTS Gel Crossmatch 10/13/17 10/13/17 10/13/17 03:23 05:10 05:10 Sodium 135 L Potassium 3.9 Chloride 99 Carbon Dioxide 28.2 Anion Gap 8 BUN 15 Creatinine 1.11 Estimated GFR 88 L POC Glucose 113 H Random Glucose 119 H Calcium 8.7 Magnesium 2.0 B-Natriuretic Peptide 834 H Urine Opiates Screen Ur Barbiturates Screen Ur Amphetamines Screen U Benzodiazepines Scrn Urine Cocaine Screen U Cannabinoids Screen Blood Type Blood Type Recheck Antibody Screen Antibody Identification Antigen Identification MTS Gel Crossmatch 10/13/17 08:21 Sodium Potassium Chloride Carbon Dioxide Anion Gap BUN Creatinine Estimated GFR POC Glucose 135 H Random Glucose Calcium Magnesium B-Natriuretic Peptide Urine Opiates Screen Ur Barbiturates Screen Ur Amphetamines Screen U Benzodiazepines Scrn Urine Cocaine Screen U Cannabinoids Screen Blood Type Blood Type Recheck Antibody Screen Antibody Identification Antigen Identification MTS Gel Crossmatch Assessment and Plan - Plan //New onset CHF Patient with BNP of 1700 Symptoms consistent with CHF Chest x-ray significant for cardiomegaly with small left density and pleural effusion, personally reviewed EKG significant for downsloping ST segments in V4-V6 and T-wave inversions in I , II, V4-V6 Given EKG abnormalities and nothing for comparison, ACS rule out pending IV Lasix Echo with EF 3035%. Cardiology consulted, appreciate recommendations = 10/12. Cardiothoracic surgery following. Continue diuresis. Will plan for surgery when BNP less than 900. = 10/13. BNP in the 800s, patient clinically out of heart failure. Cardiothoracic surgery following. Appreciate nutrition for AM LABS ECHO //DM POSITIVE WITH HGBA1C 7.8 WILL NEED DM EDUCATION ETC = clinical nurse educator pending. Insulin sliding scale. Glucose controlled. FEN N.p.o. Electrolytes: Monitor and replete as needed Discharge Planning: Pending cardiothoracic and cardiology clearance.
[2017-10-13] MEDS: Magnesium Oxide 400 MG Tablet PO SCH ×2 (10:08→20:57)
--- NOTE | 2017-10-13 11:48 | P.PNCV ---
- Note Subjective/Hospital Course: 42-year-old male recently seen in the emergency department with shortness of breath, cough, congestion, also sinus pressure, nasal discharge. They did a chest x-ray and he was diagnosed with pneumonia. He was sent home with a prescription for Levaquin, which he did not fill. He has been using saline spray at home. He re-presented to the emergency room with increasing lower extremity edema, still short of breath with no improvement. They did a CTA of the chest which showed no evidence of pulmonary emboli, some small bilateral effusions. They did venous Dopplers, which were negative for deep vein thrombosis. They did a 2-D echocardiogram, which showed an ejection fraction of 30 to 35%, moderately dilated left ventricle trace mitral valve regurgitation, trace tricuspid valve regurgitation. He underwent cardiac catheterization for evaluation. Proximal LAD was 80% stenosed and mid distal LAD 100%, the diagonal 100%, circumflex 80%, OM 90%, and RCA 100%. We were consulted to evaluate for coronary artery bypass grafting. 10/12 BNP now 1230 feels better, continue diuresis , recheck BNP in am eval surgery Tuesday or Tuesday when BNP<900 10/13 BNP improving , scheduled for surgery in am Objective: Vital Signs - 24 hr 10/12/17 12:00 10/12/17 13:00 10/12/17 14:00 Temperature Pulse Rate 92 H 93 H 92 H Respiratory Rate Blood Pressure Pulse Oximetry 10/12/17 15:00 10/12/17 16:00 10/12/17 17:00 Temperature 98.2 F Pulse Rate 91 H 95 H 88 Respiratory Rate 16 Blood Pressure Pulse Oximetry 100 10/12/17 18:00 10/12/17 20:00 10/12/17 21:00 Temperature 98.7 F Pulse Rate 96 H 96 H 98 H Respiratory Rate 18 Blood Pressure 111/78 Pulse Oximetry 99 10/12/17 22:00 10/12/17 23:00 10/13/17 00:00 Temperature 98.6 F Pulse Rate 90 90 88 Respiratory Rate 18 Blood Pressure 114/71 Pulse Oximetry 100 10/13/17 01:00 10/13/17 02:00 10/13/17 03:00 Temperature Pulse Rate 102 H 94 H 92 H Respiratory Rate Blood Pressure Pulse Oximetry 10/13/17 04:00 10/13/17 05:00 10/13/17 06:00 Temperature 98.7 F Pulse Rate 86 84 88 Respiratory Rate 18 Blood Pressure 114/73 Pulse Oximetry 100 10/13/17 07:00 10/13/17 08:00 10/13/17 09:00 Temperature 97.9 F Pulse Rate 84 86 88 Respiratory Rate 16 Blood Pressure 115/77 Pulse Oximetry 100 10/13/17 10:00 10/13/17 11:00 Temperature Pulse Rate 92 H 92 H Respiratory Rate Blood Pressure Pulse Oximetry GENERAL: A&O x 3 SKIN: Warm and dry. HEAD: Normocephalic. EYES: No scleral icterus. No injection or drainage. NECK: Supple, trachea midline. No JVD or lymphadenopathy. CARDIOVASCULAR: Regular rate and rhythm without murmurs, gallops, or rubs. RESPIRATORY: Breath sounds equal bilaterally. No accessory muscle use. faint basilar crackles GASTROINTESTINAL: Abdomen soft, non-tender, nondistended. MUSCULOSKELETAL: No cyanosis, or edema. BACK: Nontender without obvious deformity. No CVA tenderness. Labs: Laboratory Results - last 12 hr 10/13/17 10/13/17 10/13/17 03:23 05:10 05:10 Sodium 135 L Potassium 3.9 Chloride 99 Carbon Dioxide 28.2 Anion Gap 8 BUN 15 Creatinine 1.11 Estimated GFR 88 L POC Glucose 113 H Random Glucose 119 H Calcium 8.7 Magnesium 2.0 B-Natriuretic Peptide 834 H 10/13/17 08:21 Sodium Potassium Chloride Carbon Dioxide Anion Gap BUN Creatinine Estimated GFR POC Glucose 135 H Random Glucose Calcium Magnesium B-Natriuretic Peptide Result Diagrams: 10/12/17 05:48 10/13/17 05:10 - Plan (1) CAD (coronary artery disease), [place] coronary artery Plan: ASA, statin BB scheduled for surgery in am (2) New onset of congestive heart failure Plan: continue diuresis BB start irma after surgery
--- NOTE | 2017-10-13 14:16 | P.OP ---
Date of procedure: 10/13/17 Surgeon: Alisha Ruiz MD
--- NOTE | 2017-10-13 15:38 | P.DIET ---
Nutritional Evaluation Type of nutrition evaluation: initial Nutrition consult regarding: Diet Evaluation (MDC for Diet Education) Assessment Assessment: MDC for diet education received. Pt was not in room on my visit. He is scheduled for a sx tomorrow per review of EMR. Will f/u w/ education following surgery.
[2017-10-13] MEDS: Levofloxacin 500 mg Premix Inj 500 MG/100 ML PIGGYBACK IV.SIG SCH (18:32)
--- NOTE | 2017-10-14 02:42 | P.CATH ---
- Cardiac Catheterization Procedure Date: 10/04/17 Procedure Note:: Preprocedure Diagnosis: New Onset Systolic HF Postprocedure Diagnosis: Severe 3 vessel CAD Procedures performed: Selective coronary angiogram via the right radial artery Indications: In brief, Mr Reddy presented with new onset systolic heart failure. Please see consult note for further details. Description of Procedure: After discussion of risks, benefits, and alternatives the patient signed informed consent. He was brought to the catheterization suite in a stable fasting nonsedated state. He was sterilely prepared and draped in usual fashion. 1% lidocaine solution was used for local anesthesia and 6F sheath was placed into the right radial artery.A JR 4 was used to engage the right coronary artery. Images were obtained after intracoronary contrast dye injection. We then exchanged for a JL 3.5 to engage the left main. Images were obtained after intracoronary contrast dye injections. Findings: Left Main: Bifurcates into the LAD and circumflex. There are minimal luminal irregularities. LAD: The proximal portion contains a severe stenosis. There is a 100% of the mid LAD. There is a first diagonal with also a 100% lesion that receives left to left collaterals LCx: There is an 80% stenosis in the proximal vessel. There is a 100% occluded first OM. There is a severe stenosis of the second OM. Remainder of the vessel has diffuse disease. RCA: Dominant vessel. There is mild to moderate disease in the proximal, mid, and distal RCA.At the bifurcation, there is a 100% of the a branching PDA which receives right to right collaterals. There is also severe disease of the WIL. Summary: Severe 3 vessel Coronary Artery Plan: Access site precautions CV surgery consult for bypass Continue IV diuresis for optimization prior to surgery
[2017-10-14] MEDS: Insulin NovoLOG Aspart Correctional Sugar Inj SQ SCH ×5 (03:53→22:05)
[2017-10-14 06:08] LABS: Baso # (Auto) 0.1 th/mm3 (0.0-0.2); Baso % (Auto) 0.6 % (0.0-2.0); Eos # (Auto) 0.1 th/mm3 (0.0-0.4); Eos % (Auto) 0.9 % (0.0-4.0); Hematocrit 38.1 % (39.0-51.0); Hemoglobin 12.5 gm/dL (13.0-17.0); Lymph # (Auto) 3.9 th/mm3 (1.0-4.8); Mean Corpuscular HGB Conc 32.9 % (32.0-36.0); Mean Corpuscular Hemoglobin 25.3 pg (27.0-34.0); Mean Corpuscular Volume 77.1 fL (80.0-100.0); Mean Platelet Volume 7.4 fL (7.0-11.0); Mono # (Auto) 1.6 th/mm3 (0.0-0.9); Mono % (Auto) 18.3 % (0.0-8.0); Neut # (Auto) 3.1 th/mm3 (1.8-7.7); Neut % (Auto) 35.2 % (16.0-70.0); Platelet Count 328 th/mm3 (150-450); Red Blood Count 4.95 mil/mm3 (4.50-5.90); Red Cell Distribution Width 16.6 % (11.6-17.2); White Blood Count 8.7 th/mm3 (4.0-11.0)
[2017-10-14] MEDS ORDERED: Heparin - SQ 10,000 UNITS/ML Vial ONE (06:23)
[2017-10-14] MEDS ORDERED: ceFAZolin 2 GM Premix Inj 2 GM/50 ML PIGGYBACK IV.SIG ONE (06:24)
[2017-10-14 06:26] LABS: Albumin 2.8 g/dL (3.4-5.0); Carbon Dioxide 26.2 meq/L (21.0-32.0); Magnesium 2.2 mg/dL (1.5-2.5); Phosphorus 4.1 mg/dL (2.5-4.9); Potassium 4.1 meq/L (3.5-5.1)
[2017-10-14] MEDS ORDERED: Potassium Chlor 20 mEq Premix 20 MEQ/100 ML PIGGYBACK IV.SIG ONE (09:06)
[2017-10-14] MEDS: Magnesium Oxide 400 MG Tablet PO SCH ×2 (11:16→22:04)
[2017-10-14] MEDS ORDERED: Potassium Chlor 40 mEq Premix 40 MEQ/100 ML PIGGYBACK ONE (11:57)
[2017-10-14] MEDS ORDERED: Calcium Chloride Inj 1 GM/10 ML Syringe IV.CONT ONE (12:00)
[2017-10-14] MEDS ORDERED: Sod Chloride 0.9% Inj 1,000 ML IV.SIG ONE (12:00)
[2017-10-14] MEDS ORDERED: Heparin - SQ 10,000 UNITS/ML Vial OTHER ONE (12:00)
[2017-10-14] MEDS ORDERED: Dexmedetomidine Inj 200 MCG/2 ML Vial IV.CONT ONE (12:00)
[2017-10-14] MEDS ORDERED: Protamine Sulfate Inj 250 MG/25 ML Vial IV.PUSH ONE (12:00)
[2017-10-14] MEDS ORDERED: Phenylephrine/NS 1000 MCG/10ML Syringe IV.PUSH ONE (12:00)
[2017-10-14] MEDS ORDERED: Morphine Sulfate Inj 2 MG/ML Vial IV.PUSH PRN (12:26)
[2017-10-14] MEDS ORDERED: Clevidipine Inj 25 MG/50 ML VIAL IV.CONT PRN (12:26)
[2017-10-14] MEDS ORDERED: Phenylephrine Inj 40 MG in Sodium Chlor 0.9% Inj 496 ML IV.CONT PRN (12:26)
[2017-10-14] MEDS ORDERED: Acetaminophen 325 MG Tablet PO PRN (12:26)
[2017-10-14] MEDS ORDERED: EPINEPHrine (1:1000) Inj 2 MG in Sodium Chlor 0.9% Inj 248 ML IV.CONT PRN (12:26)
[2017-10-14] MEDS ORDERED: Potassium Chlor 20 mEq Premix 20 MEQ/100 ML PIGGYBACK IV.SIG PRN ×3 (12:26)
[2017-10-14] MEDS ORDERED: Dexmedetomidine Inj 200 MCG in Sodium Chlor 0.9% Inj 48 ML IV.CONT PRN (12:26)
[2017-10-14] MEDS ORDERED: Post-op Orders (for Pharmacy) OTHER STA (12:26)
[2017-10-14] MEDS ORDERED: RESP: Racemic Epinephrine 2.25% 0.5 ML Neb NEB PRN (12:26)
[2017-10-14] MEDS ORDERED: hydrALAZINE HCl Inj 20 MG/ML Vial IV.PUSH PRN (12:26)
[2017-10-14] MEDS ORDERED: Magnesium Sulfate Inj 2 GM in Sodium Chlor 0.9% Inj 96 ML IV.SIG PRN ×4 (12:26)
[2017-10-14] MEDS ORDERED: Dextrose 50% in Water 50 ML Vial IV.PUSH PRN (12:26)
[2017-10-14] MEDS ORDERED: Metoprolol Inj 5 MG/5 ML Vial IV.PUSH PRN (12:26)
[2017-10-14] MEDS ORDERED: Insulin Regular (For Infusion) 100 UNIT in Sodium Chlor 0.9% Inj 99 ML IV.CONT PRN (12:26)
[2017-10-14] MEDS ORDERED: Acetaminophen 650 MG Supp RECTAL PRN (12:26)
--- NOTE | 2017-10-14 12:43 | P.OP ---
Date of procedure: 10/14/17 Anesthesia: JACINTAA Surgeon: Alisha Ruiz MD Operation and Findings: PREPROCEDURE DIAGNOSES 1. Severe Multi Vessel Coronary Artery Disease. 2. Cardiomyopathy 3. Severe left ventricular dysfunction (EF 10-15%) 4. Renal insufficiency POSTPROCEDURE DIAGNOSES Same SURGICAL PROCEDURE 1. Urgent Off-pump Coronary Artery Bypass Grafting x 4 with Left Internal Mammary Artery (SMITH) to Left Anterior Descending (LAD), reverse saphenous vein graft to diagonal 1 branch of the LAD, sequential reverse saphenous vein graft to the Posterolateral branch and Posterior Descending branch of the Right Coronary artery 2. Left leg Endoscopic Vein [place] 3. Intraoperative Vein Mapping. SURGEON Alisha Ruiz MD SHEET FED PRINTER ESTHER Zuluaga ANESTHESIA General endotracheal UTILITY APPRAISER XOCHITL Ortega MD PREPARATION ChloraPrep. COUNTS Needle, sponge, and instrument counts were correct. DRAINS Two 32-Romanian mediastinal tubes. COMPLICATIONS None. INDICATIONS FOR PROCEDURE The patient is a 42-year-old presenting with shortness of breath. Patient was noted to have multi--vessel coronary artery disease with severe cardiomyopathy. The patient is being brought to the operating room for surgical revascularization therapy. PROCEDURE Patient was brought to the operating room and placed supine on the OR table. Following the induction of adequate general endotracheal anesthesia and placement of appropriate monitoring devices, intraoperative vein mapping was performed which revealed good-caliber conduit in the left thigh only. The patient was then prepped and draped in standard sterile fashion. Next, 2500 units of intravenous heparin was given. The left greater saphenous vein was harvested endoscopically. This appeared to be a useable-caliber conduit up to just below the knee. Simultaneously, a median sternotomy was performed and the left internal mammary artery dissected free off the posterior sternal table. The patient was systemically heparinized and anticoagulation monitored by serial ACT measurements. The internal mammary artery had excellent pulsatile flow in it and was a good-caliber conduit. The pericardium was then divided in the midline, the cradle created and targets analyzed. Intraoperative WILLIE as well as visualization of the heart revealed severe left ventricular dysfunction with globally hypokinetic left ventricle. At this point, all anastomoses were performed in a beating-heart fashion using the [employer] stabilizing system. The left internal mammary artery was anastomosed to the mid LAD (1.5 mm) in an end- to-side fashion using 7-0 Prolene. Segment of saphenous vein graft was then anastomosed to the D1 (2 mm) in an end-to-side fashion using 7-0 Prolene. The final segment was anastomosed sequentially to the RPLB (1.5 mm) in a side to side fashion as well as to the RPDA 1.5]mm) in an end-to-side fashion using 7- 0 Prolene. The circumflex distribution was examined and no viable targets were identified. Additionally, no further venous conduit was available. The proximal anastomoses were then constructed to the ascending aorta in a running manner using 6-0 Prolene. All anastomotic sites were inspected and appeared to be hemostatic and patent. Protamine solution was given. Strict hemostasis was assured. The closure was undertaken. 2 chest tubes were placed. The pericardium was reapproximated in the midline. The sternum was approximated using sternal wires. The muscular and fascial layer were then closed in 3 layers. The endoscopic vein harvest site was closed in 2 layers. The patient tolerated the procedure well and was transferred to CVICU in critical condition on dobutamine and epinephrine drips.
[2017-10-14] MEDS ORDERED: Calcium Chloride Inj 1 GM in Sodium Chlor 0.9% Inj 100 ML IV.SIG PRN (13:00)
[2017-10-14] MEDS ORDERED: Calcium Chloride Inj 1 GM/10 ML Syringe IV.PUSH PRN (13:00)
--- NOTE | 2017-10-14 13:26 | XR ---
EXAM DATE: 10/14/2017 1:23 PM EDT AGE/SEX: 42 years / Male INDICATIONS: S/P CABG. CLINICAL DATA: This is the patient's initial encounter. Patient reports that signs and symptoms have been present for 1 day and indicates a pain score of Nonresponsive. MEDICAL/SURGICAL HISTORY: Non-responsive. Non-responsive. COMPARISON: [facility], CHEST 1V SINGLE AP, 10/09/2017. . FINDINGS: Endotracheal tube and nasogastric tube are present in good position. Right neck central line descends into the SVC. Left thoracostomy tube and midline chest tube are present. There is mild perihilar ate lectasis on the right with slight elevation of the right diaphragm. No evidence of hemothorax or pneu mothorax. Cardiac contours are satisfactory. Sternotomy wires are present. CONCLUSION: Satisfactory postop appearance Electronically signed by: Wilder Gutierrez MD 10/14/2017 1:24 PM EDT
[2017-10-14] MEDS: SODIUM CHLOR 0.9% IV.CONT SCH ×2 (13:42→21:28)
[2017-10-14] MEDS: DOBUTAMINE IV.CONT SCH ×2 (13:42→21:28)
[2017-10-14] MEDS: fentaNYL Citrate Inj 100 MCG/2 ML Ampul IV.PUSH PRN ×2 (13:44→23:48)
--- NOTE | 2017-10-14 13:48 | P.CONCC ---
History of Present Illness Service: Critical care medicine Consult date: 10/14/17 Requesting Physician: Alisha Ruiz Reason for Consult: Critical care management Primary Care Provider: No Primary Care Physician Family Provider: Unknown Chief Complaint: Currently unresponsive on the ventilator on epinephrine dobutamine drips st History of Present Illness: This is a 42-year-old AA male. Date of admission 10/10/2017. Date of consultation 10/14/2017. Past medical history includes no significant issues. Patient originally presented to [facility] on 10/10 with a 2-3 week history of shortness of breath/progressive since with orthopnea. CT pulmonary angiogram revealed cardiomegaly, small pleural effusion. No pulmonary embolism. 2D echocardiogram revealed diminished ejection fraction with an estimated in the range of 30-35%. Moderately dilated left ventricle. Trace mitral valve regurgitation. There is trace tricuspid valve regurgitation. Cardiac catheterization by Dr. Paris revealed severe three-vessel coronary disease including LAD proximal severe, mid 100% first diagonal her percent. Left circumflex 80%. 100% of the OM1. Severe 012. RCA's diffuse moderate disease with 100% PDA and severe in the WIL. Today, the patient underwent urgent off-pump coronary artery bypass grafting x 4 with left internal mammary artery (SMITH) to left anterior descending (LAD), reverse saphenous vein graft to diagonal 1 branch of the LAD, sequential reverse saphenous vein graft to the posterolateral branch and posterior descending branch of the right coronary artery along with left leg endoscopic vein harvest with intraoperative vein mapping. with a diagnosis of severe multi vessel coronary artery disease, cardiomyopathy severe left ventricular dysfunction (EF 10-15%), and acute renal insufficiency. Estimated blood loss 200 cc. Urine output 120 cc. 2300 crystalloid. Cell Saver 643 cc. Currently seen in room 446. On dobutamine drip at 5 mcg/kg/min and epinephrine drip at 3 mcg/min. Insulin drip at 6 units an hour and dexmedetomidine drip at 0.5 mg/kg/ min Review of Systems unobtainable due to endotracheal tube PMFSH - History History Provided By: Patient - Medical History Medical History: Medical History (Last Reviewed 10/14/17 @ 13:53 by Vipin Santana MD) Patient denies medical problems - Surgical History Surgical History: Surgical History (Last Reviewed 10/14/17 @ 13:53 by Vipin Santana MD) No history of previous surgery - Family History Family History: Family History (Last Reviewed 10/14/17 @ 13:53 by Vipin Santana MD) Other Family history normal - Tobacco History Second Hand Smoke Exposure: No Tobacco Use In Past 30 Days: No Smoking Status: Current some day smoker Tobacco Type: Cigarettes - Alcohol History How Often Do You Have a Drink Containing Alcohol: Monthly or less - Substance Use History Substance History: Active Abuse - Substance Use Type Marijuana Status: Active Route Used: Inhalation Frequency: Everyday Last Used: 10/09/17 Reason for Use: Sleep - Travel History Recent Travel in the [place] Within the Last 8 Weeks: No Recent Travel Out of the Country Within the Last 8 Weeks: No - Immunization History Tetanus Immunization: Unsure Hx Influenza Vaccine This Season: No Medications and Allergies Active Medications: Active Medications Acetaminophen (Tylenol) 650 mg PO Q4H PRN PRN Reason: FEVER > 101 F Acetaminophen (Tylenol Supp) 650 mg RECTAL Q4H PRN PRN Reason: FEVER > 101 F Hydrocodone Bitart/Acetaminophen ([place] 5/325) 1 tab PO Q3H PRN PRN Reason: PAIN SCALE 1 TO 5 Albuterol (Duoneb Neb (Prn)) 1 ampul NEB Q2HR NEB PRN PRN Reason: WHEEZING Albuterol (Duoneb Neb (Sharla)) 1 ampul NEB Q6HR NEB SHARLA Amiodarone HCl (Cordarone) 200 mg PO Q12HR [facility] Aspirin (Aspirin Chew) 81 mg PO DAILY [facility] Calcium Chloride (Calcium Chloride Inj) 0.5 gm IV.PUSH UNSCH PRN PRN Reason: SEE LABEL COMMENTS Carvedilol (Coreg) 3.125 mg PO BID [facility] Last Admin: 10/14/17 11:16 Dose: Not Given Chlorhexidine Gluconate (Hibiclens 4% Topical) 1 applicatio TOPICAL SENIOR MECHANICAL DESIGNER [facility] Stop: 10/17/17 16:41 Clopidogrel Bisulfate (Plavix) 75 mg PO DAILY [facility] Sodium Chloride 77.5 ml/Papaverine HCl 60 mg/Nitroglycerin 100 mcg/Diltiazem HCl 100 mg 0 ml IRRIGATION SENIOR MECH[employer]ICAL DESIGNER [facility] Stop: 10/17/17 16:41 Last Admin: 10/14/17 09:50 Dose: 1 irrig.soln Dextrose (D50w Vial) 50 ml IV.PUSH UNSCH PRN PRN Reason: PER HYPOGLYCEMIA PROTOCOL Epinephrine (Racepinephrine 2.25% Neb) 0.5 ml NEB ONCE PRN PRN Reason: STRIDOR Fentanyl Citrate (Fentanyl Inj) 25 mcg IV.PUSH Q1H PRN PRN Reason: BREAKTHROUGH PAIN Glucagon (Glucagon Inj) 1 mg OTHER PRN PRN PRN Reason: for Hypoglycemia Protocol Cefazolin Sodium 2,000 mg/ (Sodium Chloride) 100 mls @ 200 mls/hr IV.SIG [employer] DESIGNER [facility] Stop: 10/17/17 16:42 Last Infusion: 10/14/17 08:05 Dose: Infused Acetaminophen (Ofirmev Inj) 1,000 mg in 100 mls @ 400 mls/hr IV.SIG Q6H [facility] Stop: 10/15/17 07:14 Albumin Human (Buminate 5% Inj) 250 mls @ 250 mls/hr IV.SIG UNSCH PRN PRN Reason: SEE LABEL COMMENTS Calcium Chloride 1 gm/ Sodium (Chloride) 110 mls @ 100 mls/hr IV.SIG PRN PRN PRN Reason: SEE LABEL COMMENTS Cefazolin Sodium 2,000 mg/ (Sodium Chloride) 100 mls @ 200 mls/hr IV.SIG Q8H [facility] Stop: 10/16/17 00:29 Clevidipine (Cleviprex Inj) 25 mg in 50 mls @ 2 mls/hr IV.CONT TITRATE PRN; Protocol PRN Reason: Per protocol Dexmedetomidine HCl 200 mcg/ (Sodium Chloride) 50 mls @ 4.24 mls/hr IV.CONT TITRATE PRN; Protocol PRN Reason: Per Protocol Dobutamine HCl 250 mg/ Sodium (Chloride) 250 mls @ 12.73 mls/hr IV.CONT .[id number] [facility] Epinephrine HCl 2 mg/ Sodium (Chloride) 250 mls @ 22.5 mls/hr IV.CONT TITRATE PRN; Protocol PRN Reason: See protocol Insulin Human Regular 100 unit (/ Sodium Chloride) 100 mls @ 3 mls/hr IV.CONT TITRATE PRN; Protocol PRN Reason: See Protocol Lactated Ringer's (Lr 1000 Ml Inj) 500 mls @ 500 mls/hr IV.SIG .Q1H PRN PRN Reason: SEE LABEL COMMENTS Magnesium Sulfate Inj 2 gm/ (Sodium Chloride) 100 mls @ 50 mls/hr IV.SIG PRN PRN PRN Reason: SEE LABEL COMMENTS Magnesium Sulfate Inj 2 gm/ (Sodium Chloride) 100 mls @ 50 mls/hr IV.SIG PRN PRN PRN Reason: SEE LABEL COMMENTS Phenylephrine HCl 40 mg/ (Sodium Chloride) 500 mls @ 30 mls/hr IV.CONT TITRATE PRN; Protocol PRN Reason: See Protocol Potassium Chloride (Kcl 20 Meq Premix Inj) 20 meq in 100 mls @ 50 mls/hr IV.SIG PRN PRN PRN Reason: SEE LABEL COMMENTS Potassium Chloride (Kcl 20 Meq Premix Inj) 20 meq in 100 mls @ 50 mls/hr IV.SIG PRN PRN PRN Reason: SEE LABEL COMMENTS Potassium Chloride (Kcl 20 Meq Premix Inj) 20 meq in 100 mls @ 50 mls/hr IV.SIG PRN PRN PRN Reason: SEE LABEL COMMENTS Insulin Aspart (Novolog Insulin [place] Sugar Inj) 0 unit SQ ACHS AND 3AM SHARLA; Protocol Last Admin: 10/14/17 11:19 Dose: Not Given Magnesium Oxide (Mag-Ox) 400 mg PO BID SH[facility] Last Admin: 10/14/17 11:16 Dose: Not Given Meperidine HCl (Demerol Inj) 12.5 mg IV.PUSH Q4H PRN PRN Reason: SHIVERING Metoprolol Tartrate (Lopressor Inj) 2.5 mg IV.PUSH Q1H PRN PRN Reason: SEE LABEL COMMENTS Morphine Sulfate (Morphine Inj) 1 mg IV.PUSH Q10M PRN PRN Reason: PAIN SCALE 1 TO 5 Ondansetron HCl (Zofran Inj) 4 mg IV.PUSH Q6H PRN PRN Reason: NAUSEA OR VOMITING Pantoprazole Sodium (Protonix) 40 mg PO DAILY@06 SHARLA Phenylephrine HCl (Neosynephrine Inj) 0.1 mg IV.PUSH UNSCH PRN PRN Reason: SEE LABEL COMMENTS Potassium Chloride (K-Dur) 20 meq PO BID [facility] Last Admin: 10/14/17 11:16 Dose: Not Given Potassium Chloride (K-Dur) 20 meq PO UNSCH PRN PRN Reason: SEE LABEL COMMENTS Potassium Chloride (K-Dur) 40 meq PO UNSCH PRN PRN Reason: SEE LABEL COMMENTS Sodium Bicarbonate (Sodium Bicarbonate 8.4% Inj) 50 meq IV.PUSH UNSCH PRN PRN Reason: SEE LABEL COMMENTS Sodium Bicarbonate (Sodium Bicarbonate 8.4% Inj) 100 meq IV.PUSH UNSCH PRN PRN Reason: SEE LABEL COMMENTS Sodium Chloride (Ns Flush) 2 ml IV.FLUSH BID SHARLA Last Admin: 10/14/17 11:16 Dose: Not Given Sodium Chloride (Ns Flush) 2 ml IV.FLUSH PRN PRN PRN Reason: FLUSH AFTER USING IV ACCESS Sodium Chloride ([place] Nasal [place]) 2 spray EACH NARE Q4H PRN PRN Reason: sinusitis Terbutaline Sulfate (Brethine Inj) 1 mg SQ ONCE PRN PRN Reason: Extravasation Allergies Allergy/AdvReac Type Severity Reaction Status Date / Time No Known Allergies Allergy Verified 10/09/17 23:02 Home Medications Medication Instructions Recorded Confirmed Type No Known Home Medications 10/09/17 10/09/17 History Physical Exam Vital signs: Vital Signs 10/13/17 14:00 10/13/17 15:00 10/13/17 16:00 Temperature 98.2 F Pulse Rate 92 H 92 H 97 H Respiratory Rate 12 Blood Pressure 120/72 Pulse Oximetry 100 10/13/17 17:00 10/13/17 18:00 10/13/17 19:00 Temperature Pulse Rate 96 H 94 H 98 H Respiratory Rate Blood Pressure Pulse Oximetry 10/13/17 20:00 10/13/17 21:00 10/13/17 22:00 Temperature 99.2 F Pulse Rate 100 H 102 H 94 H Respiratory Rate 18 Blood Pressure 92/63 L Pulse Oximetry 98 10/13/17 23:00 10/14/17 00:00 10/14/17 01:00 Temperature 98.8 F Pulse Rate 105 H 90 92 H Respiratory Rate 18 Blood Pressure 89/66 L Pulse Oximetry 100 10/14/17 02:00 10/14/17 03:00 10/14/17 04:00 Temperature 98.5 F Pulse Rate 90 82 85 Respiratory Rate 18 Blood Pressure 105/71 Pulse Oximetry 100 10/14/17 05:00 10/14/17 06:00 10/14/17 12:59 Temperature Pulse Rate 85 86 Respiratory Rate 10 L Blood Pressure Pulse Oximetry 95 Intake & Output 10/13/17 10/14/17 10/14/17 18:59 06:59 18:59 Intake Total 500 / 500 340 / 340 3043 / 3043 Output Total 225 / 225 975 / 975 320 / 320 Balance 275 / 275 -635 / -635 2723 / 2723 Weight 84.9 kg Intake: IV 100 / 100 100 / 100 Levaquin 500 mg Premix Inj 500 100 / 100 mg In 100 ml @ 100 mls/hr IV. SIG Q24H [facility] Rx#:[id number] Ancef Inj 2,000 MG In NS Inj 80 100 / 100 ML @ 200 mls/hr IV.SIG [employer]ENIOR MECHANICAL DESIGNER SHARLA Rx#:[id number] Oral 500 / 500 240 / 240 Anesthesia Amount 2300 / 2300 Cell Saver Amount 643 / 643 Output: Urine 225 / 225 975 / 975 Estimated Blood Loss 200 / 200 Urine Amount (Catheter) 120 / 120 Indwelling Temp Sensing 120 / 120 Catheter Other: Weight On Admission 87.8 kg - Constitutional no acute distress - Routine HEENT Exam Head: Present: normocephalic, atraumatic Eye: Present: EOMI, PERRL, normal accommodation ENT: Present: mucous membranes moist - Routine Neck Exam Present: supple. Absent: JVD, carotid bruit - Routine Respiratory Exam Present: patient mechanically ventilated, CTA bilaterally. Absent: accessory muscle use - Routine Cardiovascular Exam Present: RRR, S1, S2 - Routine Abdominal Exam Present: soft, normoactive bowel sounds, surgical scars - Routine Exam Patient deferred: penile exam, testicular exam, scrotal exam, groin exam, perineal exam - Routine Extremities Exam Present: pulses intact. Absent: cyanosis, clubbing, edema - Routine Skin Exam Present: intact - Routine Neurological Exam Present: alert, CN II-XII intact. Absent: oriented X3, sensory deficit, motor deficit - Detailed Neurological Exam: Coma Scale Eye Opening: Spontaneous - Routine Psychiatric Exam Present: unable to assess - Urinary Catheter Management Indwelling Temp Sensing Catheter Cath placed during this visit: yes Urethral indwelling: Yes Reason for continuing: Hourly intake/output Insertion date: 10/14/17 Insertion time: 07:50 Septic Shock Reassessment Septic shock perfusion: reassessment completed Assessment and Plan - Assessment and Plan Plan: Neuro/Psych: Schedule Ofirmev 1 g IV every 6 hours [address] surgery Hydrocodone 5/325 1 tablet every 4 hours and morphine sulfate 1 mg IV every 10 minutes as needed pain management Currently injected with any drip at 0.5 m/kg/min post surgery. CV: Postop day #0 urgent off-pump coronary artery bypass grafting x 4 with left internal mammary artery (SMITH) to left anterior descending (LAD), reverse saphenous vein graft to diagonal 1 branch of the LAD, sequential reverse saphenous vein graft to the posterolateral branch and posterior descending branch of the right coronary artery along with left leg endoscopic vein harvest with intraoperative vein mapping. with a diagnosis of severe multi vessel coronary artery disease, cardiomyopathy severe left ventricular dysfunction ( EF 10-15%), and acute renal insufficiency. Three-vessel coronary disease Essential hypertension Currently on epinephrine drip weaned off currently 3 mg/min and dobutamine drip at 5 mcg/kg/min Continue with aspirin 81 mg daily and clopidogrel 75 mg daily Continue carvedilol 3.2 mg p.o. twice daily when off vasopressors Continue amiodarone 200 mg twice daily per surgery Resp: Postoperative respiratory failure Ongoing tobaccoism SIMV 14/450/03/04/49 Ventilator bundle Albuterol/ipratropium aerosols every 6 hours with every 2 hours as needed dyspnea We will attempt extubation today Tobacco use self-evaluation cessation booklet will be provided. GI: N.p.o. status Advance diet post extubation Pantoprazole 40 mg daily for GI prophylaxis : [place] catheter has been placed for accurate I's and O's in a critically ill patient Endo: Currently on insulin drip with insulin R 6 units an hour TSH was 2.89 Renal: Monitor urine output Accurate I's and O's Creatinine has slowly normalized Heme: Microcytic anemia Monitor CBC daily. Follow trends. No indication for transfusion of blood products at this time. ID: Cefazolin received 2 g IV in OR MSK: PT evaluate and treat FEN: Replace electrolytes per CT surgery electrolyte replacement protocol On scheduled magnesium oxide 4 mg twice daily Access -Utilize right IJ cordis with dual-lumen catheter day #1 placed in OR -Utilize left radial arterial line day #1 placed in OR Prophylaxis -GI -pantoprazole -DVT -DIANELYS hose to right lower extremity. EVH and left lower extremity currently covered with Scott bandage. Critical care time 35 minutes
[2017-10-14] MEDS ORDERED: fentaNYL Citrate Inj 100 MCG/2 ML Ampul ONE ×2 (13:53→13:54)
[2017-10-14] MEDS ORDERED: Morphine Inj 4 MG/ML Vial ONE (13:54)
[2017-10-14] MEDS: Albumin Human 5% Inj 250 ML IV.SIG PRN ×2 (14:39→18:15)
[2017-10-14] MEDS: ceFAZolin Inj 2,000 MG in Sodium Chlor 0.9% Inj 80 ML IV.SIG SCH ×2 (15:30→23:48)
--- NOTE | 2017-10-14 17:47 | P.PNCA ---
Subjective Interval history: Patient underwent an off pump CABG, he was found to have a severely depressed EF and returns to the ICU on Dobutamine and Epinephrine. Physical Exam Vital signs: Vital Signs 10/13/17 18:00 10/13/17 19:00 10/13/17 20:00 Temperature 99.2 F Pulse Rate 94 H 98 H 100 H Respiratory Rate 18 Blood Pressure 92/63 L Pulse Oximetry 98 10/13/17 21:00 10/13/17 22:00 10/13/17 23:00 Temperature Pulse Rate 102 H 94 H 105 H Respiratory Rate Blood Pressure Pulse Oximetry 10/14/17 00:00 10/14/17 01:00 10/14/17 02:00 Temperature 98.8 F Pulse Rate 90 92 H 90 Respiratory Rate 18 Blood Pressure 89/66 L Pulse Oximetry 100 10/14/17 03:00 10/14/17 04:00 10/14/17 05:00 Temperature 98.5 F Pulse Rate 82 85 85 Respiratory Rate 18 Blood Pressure 105/71 Pulse Oximetry 100 10/14/17 06:00 10/14/17 12:59 10/14/17 13:59 Temperature 98.1 F Pulse Rate 86 100 H Respiratory Rate 10 L 10 L Blood Pressure 99/56 L Pulse Oximetry 95 10/14/17 14:36 10/14/17 15:00 10/14/17 15:09 Temperature 97.7 F 97.7 F Pulse Rate 96 H Respiratory Rate 25 H 19 Blood Pressure 92/58 L Pulse Oximetry 95 10/14/17 15:44 Temperature Pulse Rate 102 H Respiratory Rate 18 Blood Pressure Pulse Oximetry 97 Intake & Output 10/13/17 10/14/17 10/14/17 18:59 06:59 18:59 Intake Total 500 / 500 340 / 340 3993 / 3993 Output Total 225 / 225 975 / 975 320 / 320 Balance 275 / 275 -635 / -635 3673 / 3673 Weight 84.9 kg Intake: IV 100 / 100 1050 / 1050 Ofirmev Inj 1,000 mg In 100 ml 100 / 100 @ 400 mls/hr IV.SIG Q6H [facility] Rx# :[id number] Buminate 5% Inj 250 ML @ 250 250 / 250 mls/hr IV.SIG UNSCH PRN Rx#: [id number] LR 1000 mL Inj 500 ML @ 500 mls 500 / 500 /hr IV.SIG .Q1H PRN Rx#: [id number] Levaquin 500 mg Premix Inj 500 100 / 100 mg In 100 ml @ 100 mls/hr IV. SIG Q24H [facility] Rx#:[id number] Ancef Inj 2,000 MG In NS Inj 80 200 / 200 ML @ 200 mls/hr IV.SIG Q8H [facility] Rx#:[id number] Oral 500 / 500 240 / 240 Anesthesia Amount 2300 / 2300 Cell Saver Amount 643 / 643 Output: Urine 225 / 225 975 / 975 Estimated Blood Loss 200 / 200 Urine Amount (Catheter) 120 / 120 Indwelling Temp Sensing 120 / 120 Catheter Other: Weight On Admission 87.8 kg - Urinary Catheter Management Indwelling Temp Sensing Catheter Cath placed during this visit: yes Urethral indwelling: Yes Reason for continuing: Hourly intake/output Insertion date: 10/14/17 Insertion time: 07:50 Assessment and Plan - Plan CAD s/p Off-pump CABG x 4 Cardiogenic Shock on dobutamine and epinephrine EF estimated to be 10-15% on WILLIE Plan: Continue to monitor for hemodynamic stability and assess for mechanical support. Currently, he is managing on dobutamine and epinephrine (Appreciate Dr. Santana). Would continue Amio 200mg, Plavix 75mg, and ASA 81mg (Appreciate Dr. Ruiz). Will re-titrate CHF meds once patient off pressors. Will continue to follow along. Thank you for allowing me to participate
[2017-10-15] MEDS: fentaNYL Citrate Inj 100 MCG/2 ML Ampul IV.PUSH PRN ×6 (03:23→16:03)
[2017-10-15] MEDS: Insulin NovoLOG Aspart Correctional Sugar Inj SQ SCH ×5 (03:24→22:29)
[2017-10-15] MEDS: DOBUTAMINE IV.CONT SCH ×4 (03:25→19:46)
[2017-10-15] MEDS: SODIUM CHLOR 0.9% IV.CONT SCH ×4 (03:25→19:46)
[2017-10-15 05:06] LABS: Hematocrit 32.7 % (39.0-51.0); Mean Corpuscular HGB Conc 33.6 % (32.0-36.0); Mean Corpuscular Volume 77.2 fL (80.0-100.0); Mean Platelet Volume 7.8 fL (7.0-11.0); Platelet Count 257 th/mm3 (150-450); Red Blood Count 4.23 mil/mm3 (4.50-5.90); Red Cell Distribution Width 16.1 % (11.6-17.2)
[2017-10-15 05:25] LABS: Anion Gap 8 meq/L (5-15); Blood Urea Nitrogen 19 mg/dL (7-18); Calcium 8.3 mg/dL (8.5-10.1); Carbon Dioxide 25.6 meq/L (21.0-32.0); Chloride 104 meq/L (98-107); Glomerular Filtration Rate Greater Than 89 mL/min (>89); Glucose,Random 124 mg/dL (74-106); Potassium 5.5 meq/L (3.5-5.1); Sodium 138 meq/L (136-145)
--- NOTE | 2017-10-15 05:52 | XR ---
EXAM DATE: 10/15/2017 5:39 AM EDT AGE/SEX: 42 years / Male INDICATIONS: Follow up CABG. CLINICAL DATA: This is the patient's subsequent encounter. Patient reports that signs and symptoms h ave been present for 4 - 6 days and indicates a pain score of Nonresponsive. MEDICAL/SURGICAL HISTORY: Cardiovascular disease. CABG. COMPARISON: [facility], CHEST 1V SINGLE AP, 10/14/2017. . FINDINGS: The patient is status post sternotomy. The heart size is within normal limits. This increased density at the medial left base. There is silhouetting of the left hemidiaphragm. There is a left chest tube in place. A pneumothorax is not seen. The right internal jugular central line is well placed. There is a mediastinal drain. CONCLUSION: Left base atelectasis or consolidation. Electronically signed by: Wilder Chacon MD 10/15/2017 5:51 AM EDT
[2017-10-15] MEDS ORDERED: Dextrose 50% in Water 50 ML Vial IV.PUSH ONE (06:11)
[2017-10-15] MEDS ORDERED: Sodium Polystyrene Sulfonate/Sorbitol Liq 15 GM/60 ML UDC PO ONE (06:26)
[2017-10-15] MEDS ORDERED: Calcium Chloride Inj 1 GM in Sodium Chlor 0.9% Inj 100 ML IV.SIG ONE (06:30)
--- NOTE | 2017-10-15 07:02 | P.PNCC ---
Subjective Subjective Remarks/Hospital Course: This is a 42-year-old AA male. Date of admission 10/10/2017. Date of consultation 10/14/2017. Past medical history includes no significant issues. Patient originally presented to [facility] on 10/10 with a 2-3 week history of shortness of breath/progressive since with orthopnea. CT pulmonary angiogram revealed cardiomegaly, small pleural effusion. No pulmonary embolism. 2D echocardiogram revealed diminished ejection fraction with an estimated in the range of 30-35%. Moderately dilated left ventricle. Trace mitral valve regurgitation. There is trace tricuspid valve regurgitation. Cardiac catheterization by Dr. Paris revealed severe three-vessel coronary disease including LAD proximal severe, mid 100% first diagonal her percent. Left circumflex 80%. 100% of the OM1. Severe 012. RCA's diffuse moderate disease with 100% PDA and severe in the WIL. Today, the patient underwent urgent off-pump coronary artery bypass grafting x 4 with left internal mammary artery (SMITH) to left anterior descending (LAD), reverse saphenous vein graft to diagonal 1 branch of the LAD, sequential reverse saphenous vein graft to the posterolateral branch and posterior descending branch of the right coronary artery along with left leg endoscopic vein harvest with intraoperative vein mapping. with a diagnosis of severe multi vessel coronary artery disease, cardiomyopathy severe left ventricular dysfunction (EF 10-15%), and acute renal insufficiency. Estimated blood loss 200 cc. Urine output 120 cc. 2300 crystalloid. Cell Saver 643 cc. Currently seen in room 446. On dobutamine drip at 5 mcg/kg/min and epinephrine drip at 3 mcg/min. Insulin drip at 6 units an hour and dexmedetomidine drip at 0.5 mg/kg/ min SUBJECTIVE: 10/15: Extubated yesterday without complication. Currently 2 L nasal cannula. Remains on dobutamine drip at 5 mg/kg/min and insulin drip at 3 units an hour. Potassium 5.5 currently being addressed. Recheck at 10. Denies chest pain. Proctor has been removed.. Objective Vital Signs / I&O: Vital Signs 10/14/17 12:59 10/14/17 13:59 10/14/17 14:36 Temperature 98.1 F Pulse Rate 100 H Respiratory Rate 10 L 10 L 25 H Blood Pressure 99/56 L Pulse Oximetry 95 95 10/14/17 15:00 10/14/17 15:09 10/14/17 15:44 Temperature 97.7 F 97.7 F Pulse Rate 96 H 102 H Respiratory Rate 19 18 Blood Pressure 92/58 L Pulse Oximetry 97 10/14/17 18:23 10/14/17 19:00 10/14/17 19:13 Temperature 96.3 F L 96.2 F L Pulse Rate 91 H 89 Respiratory Rate 16 18 Blood Pressure 109/65 Pulse Oximetry 97 10/14/17 23:00 10/15/17 03:00 10/15/17 03:21 Temperature 97.1 F L 98.2 F Pulse Rate 92 H 95 H 95 H Respiratory Rate 12 16 15 Blood Pressure 93/62 L 100/66 Pulse Oximetry 94 L 95 Intake & Output 10/14/17 10/14/17 10/15/17 06:59 18:59 06:59 Intake Total 340 / 340 5223 / 5223 556 / 556 Output Total 975 / 975 855 / 855 755 / 755 Balance -635 / -635 4368 / 4368 -199 / -199 Weight 84.9 kg 90.5 kg Intake: IV 100 / 100 2280 / 2280 76 / 76 Dobutrex Inj 250 MG In NS Inj 212 / 212 76 / 76 230 ML @ 5 MCG/KG/MIN 25.47 mls /hr IV.CONT .Q9H49M [facility] Rx#: [id number] Precedex Inj 200 MCG In NS Inj 44 / 44 48 ML @ 0.2 MCG/KG/HR 4.24 mls/ hr IV.CONT TITRATE PRN Rx#: [id number] EPINEPHrine (1:1000) Inj 2 MG 106 / 106 In NS Inj 248 ML @ 5 MCG/MIN 37 .5 mls/hr IV.CONT TITRATE PRN Rx#:[id number] NovoLIN R (IV Infusion) 100 18 / 18 UNIT In NS Inj 99 ML @ 3 UNITS/ HR 3 mls/hr IV.CONT TITRATE PRN Rx#:[id number] Ofirmev Inj 1,000 mg In 100 ml 200 / 200 @ 400 mls/hr IV.SIG Q6H [facility] Rx# :[id number] Buminate 5% Inj 250 ML @ 250 500 / 500 mls/hr IV.SIG UNSCH PRN Rx#: [id number] LR 1000 mL Inj 500 ML @ 500 mls 1000 / 1000 /hr IV.SIG .Q1H PRN Rx#: [id number] Levaquin 500 mg Premix Inj 500 100 / 100 mg In 100 ml @ 100 mls/hr IV. SIG Q24H [facility] Rx#:[id number] Ancef Inj 2,000 MG In NS Inj 80 200 / 200 ML @ 200 mls/hr IV.SIG Q8H [facility] Rx#:[id number] Oral 240 / 240 480 / 480 Anesthesia Amount 2300 / 2300 Cell Saver Amount 643 / 643 Output: Urine 975 / 975 Estimated Blood Loss 200 / 200 Urine Amount (Catheter) 505 / 505 605 / 605 Indwelling Temp Sensing 505 / 505 605 / 605 Catheter Chest Tube Drainage 150 / 150 150 / 150 Mediastinal 150 / 150 150 / 150 Other: # Bowel Movements 0 Weight On Admission 87.8 kg Result Diagrams: 10/15/17 04:30 10/15/17 04:30 Imaging: Chest X-Ray 10/09/17 23:11 CONCLUSION: Cardiomegaly with left basilar density and small left pleural effusion Venous Doppler Study 10/09/17 23:12 CONCLUSION: 1. No DVT in either lower extremity Chest CTA 10/10/17 00:14 CONCLUSION: 1. Cardiomegaly and small bilateral pleural effusions. 2. No pulmonary embolism. Carotid Doppler Study 10/11/17 16:41 CONCLUSION: Unremarkable exam with no evidence of stenosis. Lower Extremity Ultrasound 10/11/17 16:41 CONCLUSION: 1. Venous mapping study as described. Chest X-Ray 10/14/17 12:27 CONCLUSION: Satisfactory postop appearance Chest X-Ray 10/15/17 05:00 CONCLUSION: Left base atelectasis or consolidation. Objective Remarks: GENERAL: 42-year-old AA male currently resting in chair on nasal cannula in no acute distress SKIN: Warm and dry. No rash. HEAD: Atraumatic. Normocephalic. EYES: Pupils equal and round about 2 mm bilaterally and react. No scleral icterus. No injection or drainage. ENT: No nasal bleeding or discharge. Mucous membranes pink and moist. NECK: Trachea midline. No JVD. CARDIOVASCULAR: Regular rate and rhythm. S1, S2 no S4. No murmur RESPIRATORY: No accessory muscle use. Clear to auscultation. Breath sounds equal bilaterally. Midline sternal incision/wound grafts clean dry and intact. GASTROINTESTINAL: Abdomen soft, non-tender, nondistended. Hepatic and splenic margins not palpable. MUSCULOSKELETAL: Extremities without clubbing, cyanosis, or edema. No obvious deformities. Lower extremity/left with scott wrap. NEUROLOGICAL: Awake and alert. No obvious cranial nerve deficits. Motor grossly within normal limits. Five out of 5 muscle strength in the arms and legs. Normal speech. PSYCHIATRIC: Appropriate mood and affect; insight and judgment normal. Assessment and Plan - Assessment and Plan Plan: Neuro/Psych: THC use Schedule Ofirmev 1 g IV every 6 hours [address] surgery Hydrocodone 5/325 1 tablet every 3 hours and morphine sulfate 1 mg IV every 10 minutes as needed pain management Dexmedetomidine drip at 0.5 m/kg/min post surgery discontinued after extubation. CV: Postop day #0 urgent off-pump coronary artery bypass grafting x 4 with left internal mammary artery (SMITH) to left anterior descending (LAD), reverse saphenous vein graft to diagonal 1 branch of the LAD, sequential reverse saphenous vein graft to the posterolateral branch and posterior descending branch of the right coronary artery along with left leg endoscopic vein harvest with intraoperative vein mapping. with a diagnosis of severe multi vessel coronary artery disease, cardiomyopathy severe left ventricular dysfunction ( EF 10-15%), and acute renal insufficiency. Three-vessel coronary disease Essential hypertension Currently on epinephrine drip weaned off dobutamine drip at 5 mcg/kg/min Continue with aspirin 81 mg daily and clopidogrel 75 mg daily Continue carvedilol 3.125 mg p.o. twice daily when off vasopressors Continue amiodarone 200 mg twice daily per surgery Resp: Postoperative respiratory failure Ongoing tobaccoism Nasal cannula to maintain saturations greater than or equal to 92%. Currently on 2 L Incentive spirometry while awake Albuterol/ipratropium aerosols every 6 hours with every 2 hours as needed dyspnea Extubated 10/14 Tobacco use self-evaluation cessation booklet will be provided. GI: Advance diet per CT surgery Pantoprazole 40 mg daily for GI prophylaxis : Proctor catheter has been discontinued Endo: Currently on insulin drip with insulin R 3 units an hour TSH was 2.89 Renal: Monitor urine output Accurate I's and O's Creatinine has slowly normalized currently around 1 Heme: Microcytic anemia Leukocytosis likely reactive Monitor CBC daily. Follow trends. No indication for transfusion of blood products at this time. ID: Cefazolin received 2 g IV in OR MSK: PT evaluate and treat FEN: Hyperkalemia Received D50/insulin/0.5 calcium chloride and 1 ampicillin bicarbonate. Recheck at [address] surgery electrolyte replacement protocol On scheduled magnesium oxide 400 mg twice daily Access -Utilize right IJ cordis with dual-lumen catheter day #2 placed in OR -Utilize left radial arterial line day #2 placed in OR Prophylaxis -GI -pantoprazole -DVT -DIANELYS hose to right lower extremity. EVH and left lower extremity currently covered with Scott bandage. Level 2 follow-up Code Status: Full code Discussed Condition With: CV DAIRY HELPER. Patient. Care plan discussed and all questions answered.
[2017-10-15] MEDS: Magnesium Oxide 400 MG Tablet PO SCH ×2 (08:16→21:27)
[2017-10-15] MEDS: Amiodarone 200 MG Tablet PO SCH ×2 (08:17→21:27)
[2017-10-15] MEDS: ceFAZolin Inj 2,000 MG in Sodium Chlor 0.9% Inj 80 ML IV.SIG SCH ×2 (08:51→16:41)
--- NOTE | 2017-10-15 09:23 | P.PNCV ---
- Note Subjective/Hospital Course: 42-year-old male recently seen in the emergency department with shortness of breath, cough, congestion, also sinus pressure, nasal discharge. They did a chest x-ray and he was diagnosed with pneumonia. He was sent home with a prescription for Levaquin, which he did not fill. He has been using saline spray at home. He re-presented to the emergency room with increasing lower extremity edema, still short of breath with no improvement. They did a CTA of the chest which showed no evidence of pulmonary emboli, some small bilateral effusions. They did venous Dopplers, which were negative for deep vein thrombosis. They did a 2-D echocardiogram, which showed an ejection fraction of 30 to 35%, moderately dilated left ventricle trace mitral valve regurgitation, trace tricuspid valve regurgitation. He underwent cardiac catheterization for evaluation. Proximal LAD was 80% stenosed and mid distal LAD 100%, the diagonal 100%, circumflex 80%, OM 90%, and RCA 100%. We were consulted to evaluate for coronary artery bypass grafting. 10/12 BNP now 1230 feels better, continue diuresis , recheck BNP in am eval surgery Tuesday or Tuesday when BNP<900 10/13 BNP improving , scheduled for surgery in am 10/14 SURGICAL PROCEDURE 1. Urgent Off-pump Coronary Artery Bypass Grafting x 4 with Left Internal Mammary Artery (SMITH) to Left Anterior Descending (LAD), reverse saphenous vein graft to diagonal 1 branch of the LAD, sequential reverse saphenous vein graft to the Posterolateral branch and Posterior Descending branch of the Right Coronary artery 2. Left leg Endoscopic Vein Entiat 3. Intraoperative Vein Mapping. 10/15 Clinically better this am Extubated and tolerating well Weaning Doubutamine gtt. Epi off Monitor electrolytes Greatly appreciate CCM input Will need Lifevest at discharge Objective: Vital Signs - 24 hr 10/14/17 12:59 10/14/17 13:59 10/14/17 14:36 Temperature 98.1 F Pulse Rate 100 H Respiratory Rate 10 L 10 L 25 H Blood Pressure 99/56 L Pulse Oximetry 95 95 10/14/17 15:00 10/14/17 15:09 10/14/17 15:44 Temperature 97.7 F 97.7 F Pulse Rate 96 H 102 H Respiratory Rate 19 18 Blood Pressure 92/58 L Pulse Oximetry 97 10/14/17 18:23 10/14/17 19:00 10/14/17 19:13 Temperature 96.3 F L 96.2 F L Pulse Rate 91 H 89 Respiratory Rate 16 18 Blood Pressure 109/65 Pulse Oximetry 97 10/14/17 23:00 10/15/17 03:00 10/15/17 03:21 Temperature 97.1 F L 98.2 F Pulse Rate 92 H 95 H 95 H Respiratory Rate 12 16 15 Blood Pressure 93/62 L 100/66 Pulse Oximetry 94 L 95 10/15/17 07:00 10/15/17 07:09 10/15/17 08:49 Temperature 97.9 F Pulse Rate 105 H Respiratory Rate 18 16 16 Blood Pressure 94/50 L Pulse Oximetry 94 L Labs: Laboratory Results - last 12 hr 10/12/17 10/14/17 10/14/17 05:48 21:25 22:21 WBC RBC Hgb Hct MCV MCH MCHC RDW Plt Count MPV Sodium Potassium Chloride Carbon Dioxide Anion Gap BUN Creatinine Estimated GFR POC Glucose 137 H 126 H Random Glucose Calcium Magnesium Blood Type B Positive Blood Type Recheck Required Antibody Screen Positive H Antigen Identification Leb Antigen - NEGATIVE MTS Gel Crossmatch See Detail 10/14/17 10/15/17 10/15/17 23:57 01:26 03:20 WBC RBC Hgb Hct MCV MCH MCHC RDW Plt Count MPV Sodium Potassium Chloride Carbon Dioxide Anion Gap BUN Creatinine Estimated GFR POC Glucose 96 98 117 H Random Glucose Calcium Magnesium Blood Type Blood Type Recheck Antibody Screen Antigen Identification MTS Gel Crossmatch 10/15/17 10/15/17 10/15/17 04:30 04:30 05:35 WBC 10.0 RBC 4.23 L Hgb 11.0 L Hct 32.7 L MCV 77.2 L MCH 26.0 L MCHC 33.6 RDW 16.1 Plt Count 257 MPV 7.8 Sodium 138 Potassium 5.5 H D Chloride 104 Carbon Dioxide 25.6 Anion Gap 8 BUN 19 H Creatinine 0.91 Estimated GFR Greater than 89 POC Glucose 116 H Random Glucose 124 H Calcium 8.3 L Magnesium 2.0 Blood Type Blood Type Recheck Antibody Screen Antigen Identification MTS Gel Crossmatch 10/15/17 10/15/17 07:06 08:48 WBC RBC Hgb Hct MCV MCH MCHC RDW Plt Count MPV Sodium Potassium Chloride Carbon Dioxide Anion Gap BUN Creatinine Estimated GFR POC Glucose 189 H 157 H Random Glucose Calcium Magnesium Blood Type Blood Type Recheck Antibody Screen Antigen Identification MTS Gel Crossmatch Result Diagrams: 10/15/17 04:30 10/15/17 04:30 - Plan (1) CAD (coronary artery disease), ione coronary artery Plan: ASA, statin BB scheduled for surgery in am (2) New onset of congestive heart failure Plan: continue diuresis BB start irma after surgery
[2017-10-15] MEDS ORDERED: Bisacodyl 10 MG Supp RECTAL PRN (10:02)
[2017-10-15] MEDS ORDERED: Dextrose 50% in Water 50 ML Vial IV.PUSH PRN (10:02)
--- NOTE | 2017-10-15 14:26 | P.PNCA ---
Subjective Interval history: No complaints Physical Exam Vital signs: Vital Signs 10/14/17 14:36 10/14/17 15:00 10/14/17 15:09 Temperature 97.7 F 97.7 F Pulse Rate 96 H Respiratory Rate 25 H 19 Blood Pressure 92/58 L Pulse Oximetry 95 10/14/17 15:44 10/14/17 18:23 10/14/17 19:00 Temperature 96.3 F L 96.2 F L Pulse Rate 102 H 91 H Respiratory Rate 18 16 Blood Pressure 109/65 Pulse Oximetry 97 10/14/17 19:13 10/14/17 23:00 10/15/17 03:00 Temperature 97.1 F L 98.2 F Pulse Rate 89 92 H 95 H Respiratory Rate 18 12 16 Blood Pressure 93/62 L 100/66 Pulse Oximetry 97 94 L 95 10/15/17 03:21 10/15/17 07:00 10/15/17 07:09 Temperature 97.9 F Pulse Rate 95 H 105 H Respiratory Rate 15 18 16 Blood Pressure 94/50 L Pulse Oximetry 94 L 10/15/17 08:49 10/15/17 09:50 10/15/17 09:51 Temperature Pulse Rate 97 H Respiratory Rate 16 20 Blood Pressure Pulse Oximetry 95 10/15/17 11:00 10/15/17 11:59 10/15/17 13:29 Temperature 98.1 F Pulse Rate 103 H Respiratory Rate 16 16 16 Blood Pressure 111/84 Pulse Oximetry 94 L 10/15/17 14:21 Temperature Pulse Rate 100 H Respiratory Rate 22 Blood Pressure Pulse Oximetry Intake & Output 10/14/17 10/15/17 10/15/17 18:59 06:59 18:59 Intake Total 5223 / 5223 716 / 716 156 / 156 Output Total 855 / 855 755 / 755 Balance 4368 / 4368 -39 / -39 156 / 156 Weight 90.5 kg Intake: IV 2280 / 2280 236 / 236 156 / 156 Dobutrex Inj 250 MG In NS Inj 212 / 212 76 / 76 230 ML @ 5 MCG/KG/MIN 25.47 mls /hr IV.CONT .Q9H49M [facility] Rx#: [id number] Precedex Inj 200 MCG In NS Inj 44 / 44 6 / 6 48 ML @ 0.2 MCG/KG/HR 4.24 mls/ hr IV.CONT TITRATE PRN Rx#: [id number] EPINEPHrine (1:1000) Inj 2 MG 106 / 106 0 / 0 In NS Inj 248 ML @ 5 MCG/MIN 37 .5 mls/hr IV.CONT TITRATE PRN Rx#:[id number] NovoLIN R (IV Infusion) 100 18 / 18 50 / 50 UNIT In NS Inj 99 ML @ 3 UNITS/ HR 3 mls/hr IV.CONT TITRATE PRN Rx#:[id number] Ofirmev Inj 1,000 mg In 100 ml 200 / 200 @ 400 mls/hr IV.SIG Q6H [facility] Rx# :[id number] Buminate 5% Inj 250 ML @ 250 500 / 500 mls/hr IV.SIG UNSCH PRN Rx#: [id number] Calcium Chloride Inj 1 GM In NS 60 / 60 Inj 100 ML @ 110 mls/hr IV.SIG ONCE ONE Rx#:[id number] LR 1000 mL Inj 500 ML @ 500 mls 1000 / 1000 /hr IV.SIG .Q1H PRN Rx#: [id number] Ancef Inj 2,000 MG In NS Inj 80 200 / 200 100 / 100 100 / 100 ML @ 200 mls/hr IV.SIG Q8H [facility] Rx#:[id number] Oral 480 / 480 Anesthesia Amount 2300 / 2300 Cell Saver Amount 643 / 643 Output: Estimated Blood Loss 200 / 200 Urine Amount (Catheter) 505 / 505 605 / 605 Indwelling Temp Sensing 505 / 505 605 / 605 Catheter Chest Tube Drainage 150 / 150 150 / 150 Mediastinal 150 / 150 150 / 150 Other: # Bowel Movements 0 Narrative: Alert, NAD but diaphoretic Chest slight decrease left base otherwise clear CV S1S2 RRR Ext: tr edema Off dobutamine - Urinary Catheter Management Indwelling Temp Sensing Catheter Cath placed during this visit: yes, but has since been removed by the nurse Urethral indwelling: Yes Reason for continuing: Decision to DC catheter Insertion date: 10/14/17 Insertion time: 07:50 Removal date: 10/15/17 Removal time: 06:00 Assessment and Plan - Plan CAD s/p Off-pump CABG x 4 Cardiogenic Shock resolved, hemodynamically much ,ore stable
--- NOTE | 2017-10-15 15:17 | ECG ---
Date Performed: 10/15/2017 Time Performed: 05:45:38 PTAGE: 42 years EKG: Sinus rhythm Diffuse nonspecific ST-T wave changes. Consider ischemia. Since previous tracing, no significant ganesh nge noted Abnormal ECG PREVIOUS TRACING : 10/09/2017 23.16 DOCTOR: Adithya Armijo Interpretating Date/Time 10/15/2017 15:16:56
[2017-10-15] MEDS: Docusate Sodium 100 MG Capsule PO SCH (21:34)
[2017-10-16] MEDS: ceFAZolin Inj 2,000 MG in Sodium Chlor 0.9% Inj 80 ML IV.SIG SCH (00:12)
[2017-10-16] MEDS: Insulin NovoLOG Aspart Correctional Sugar Inj SQ SCH ×6 (02:40→21:47)
[2017-10-16] MEDS: DOBUTAMINE IV.CONT SCH ×2 (05:57→14:30)
[2017-10-16] MEDS: SODIUM CHLOR 0.9% IV.CONT SCH ×2 (05:57→14:30)
[2017-10-16 06:08] LABS: Baso # (Auto) 0.1 th/mm3 (0.0-0.2); Baso % (Auto) 0.5 % (0.0-2.0); Eos # (Auto) 0.1 th/mm3 (0.0-0.4); Eos % (Auto) 1.2 % (0.0-4.0); Hematocrit 30.5 % (39.0-51.0); Hemoglobin 9.9 gm/dL (13.0-17.0); Lymph % (Auto) 19.4 % (9.0-44.0); Mean Corpuscular HGB Conc 32.6 % (32.0-36.0); Mean Corpuscular Hemoglobin 25.1 pg (27.0-34.0); Mean Corpuscular Volume 77.2 fL (80.0-100.0); Mean Platelet Volume 7.5 fL (7.0-11.0); Mono # (Auto) 1.9 th/mm3 (0.0-0.9); Neut # (Auto) 6.3 th/mm3 (1.8-7.7); Neut % (Auto) 60.9 % (16.0-70.0); Platelet Count 282 th/mm3 (150-450); Red Blood Count 3.95 mil/mm3 (4.50-5.90); Red Cell Distribution Width 16.2 % (11.6-17.2); White Blood Count 10.4 th/mm3 (4.0-11.0)
--- NOTE | 2017-10-16 06:10 | XR ---
EXAM DATE: 10/16/2017 5:34 AM EDT AGE/SEX: 42 years / Male INDICATIONS: Shortness of breath, possible pneumothorax. CLINICAL DATA: This is the patient's subsequent encounter. Patient reports that signs and symptoms h ave been present for 1 week and indicates a pain score of Nonresponsive. MEDICAL/SURGICAL HISTORY: Cardiovascular disease. CABG. COMPARISON: [facility], CHEST 1V SINGLE AP, 10/15/2017. . FINDINGS: The patient is status post sternotomy. There is a right internal jugular central line in place with t ip overlying the SVC. There is a left chest tube and a mediastinal drain present. A pneumothorax is n ot seen. The heart size is enlarged. There is minimal but improving suspected atelectasis at the medi al left lung base. The right lung is clear. CONCLUSION: Tubes and lines in good position. Minimal but improving medial left base atelectasis. Electronically signed by: Wilder Chacon MD 10/16/2017 6:09 AM EDT
[2017-10-16 06:20] LABS: Anion Gap 8 meq/L (5-15); Blood Urea Nitrogen 18 mg/dL (7-18); Calcium 8.3 mg/dL (8.5-10.1); Carbon Dioxide 28.3 meq/L (21.0-32.0); Chloride 102 meq/L (98-107); Glomerular Filtration Rate Greater Than 89 mL/min (>89); Glucose,Random 93 mg/dL (74-106); Magnesium 2.1 mg/dL (1.5-2.5); Potassium 4.2 meq/L (3.5-5.1); Sodium 138 meq/L (136-145)
--- NOTE | 2017-10-16 07:14 | P.PNCC ---
Subjective Subjective Remarks/Hospital Course: This is a 42-year-old AA male. Date of admission 10/10/2017. Date of consultation 10/14/2017. Past medical history includes no significant issues. Patient originally presented to [facility] on 10/10 with a 2-3 week history of shortness of breath/progressive since with orthopnea. CT pulmonary angiogram revealed cardiomegaly, small pleural effusion. No pulmonary embolism. 2D echocardiogram revealed diminished ejection fraction with an estimated in the range of 30-35%. Moderately dilated left ventricle. Trace mitral valve regurgitation. There is trace tricuspid valve regurgitation. Cardiac catheterization by Dr. Paris revealed severe three-vessel coronary disease including LAD proximal severe, mid 100% first diagonal her percent. Left circumflex 80%. 100% of the OM1. Severe 012. RCA's diffuse moderate disease with 100% PDA and severe in the WIL. Today, the patient underwent urgent off-pump coronary artery bypass grafting x 4 with left internal mammary artery (SMITH) to left anterior descending (LAD), reverse saphenous vein graft to diagonal 1 branch of the LAD, sequential reverse saphenous vein graft to the posterolateral branch and posterior descending branch of the right coronary artery along with left leg endoscopic vein harvest with intraoperative vein mapping. with a diagnosis of severe multi vessel coronary artery disease, cardiomyopathy severe left ventricular dysfunction (EF 10-15%), and acute renal insufficiency. Estimated blood loss 200 cc. Urine output 120 cc. 2300 crystalloid. Cell Saver 643 cc. Currently seen in room 446. On dobutamine drip at 5 mcg/kg/min and epinephrine drip at 3 mcg/min. Insulin drip at 6 units an hour and dexmedetomidine drip at 0.5 mg/kg/ min 10/15: Extubated yesterday without complication. Currently 2 L nasal cannula. Remains on dobutamine drip at 5 mg/kg/min and insulin drip at 3 units an hour. Potassium 5.5 currently being addressed. Recheck at 10. Denies chest pain. Proctor has been removed.. SUBJECTIVE: 10/16: Currently on 2 L nasal cannula. Requesting albuterol/ipratropium aerosolized treatment. Pain is controlled. Minimal output from chest tube. Potassium normal exam. Objective Vital Signs / I&O: Vital Signs 10/15/17 07:09 10/15/17 08:49 10/15/17 09:50 Temperature Pulse Rate Respiratory Rate 16 16 Blood Pressure Pulse Oximetry 95 10/15/17 09:51 10/15/17 11:00 10/15/17 11:59 Temperature 98.1 F Pulse Rate 97 H 103 H Respiratory Rate 20 16 16 Blood Pressure 111/84 Pulse Oximetry 94 L 10/15/17 13:29 10/15/17 14:21 10/15/17 15:00 Temperature 98.6 F Pulse Rate 100 H 101 H Respiratory Rate 16 22 16 Blood Pressure 106/74 Pulse Oximetry 97 10/15/17 16:03 10/15/17 19:00 10/15/17 20:00 Temperature 98.7 F Pulse Rate 107 H Respiratory Rate 16 22 Blood Pressure 119/76 Pulse Oximetry 92 L 95 10/15/17 20:06 10/15/17 20:57 10/15/17 23:00 Temperature 100 F H Pulse Rate 103 H 108 H Respiratory Rate 22 20 22 Blood Pressure 120/73 Pulse Oximetry 99 95 10/16/17 03:00 10/16/17 03:24 Temperature 98.8 F Pulse Rate 100 H Respiratory Rate 26 H 26 H Blood Pressure 123/75 Pulse Oximetry 96 Intake & Output 10/15/17 10/16/17 10/16/17 18:59 06:59 18:59 Intake Total 896 / 896 100 / 100 Output Total 460 / 460 400 / 400 Balance 436 / 436 -300 / -300 Weight 90 kg Intake: IV 296 / 296 100 / 100 Dobutrex Inj 250 MG In NS Inj 40 / 40 230 ML @ 5 MCG/KG/MIN 25.47 mls /hr IV.CONT .Q9H49M [facility] Rx#: [id number] Precedex Inj 200 MCG In NS Inj 6 / 6 48 ML @ 0.2 MCG/KG/HR 4.24 mls/ hr IV.CONT TITRATE PRN Rx#: [id number] NovoLIN R (IV Infusion) 100 50 / 50 UNIT In NS Inj 99 ML @ 3 UNITS/ HR 3 mls/hr IV.CONT TITRATE PRN Rx#:[id number] Ancef Inj 2,000 MG In NS Inj 80 200 / 200 100 / 100 ML @ 200 mls/hr IV.SIG Q8H [facility] Rx#:[id number] Oral 600 / 600 Output: Urine 400 / 400 350 / 350 Chest Tube Drainage 60 / 60 50 / 50 Mediastinal 60 / 60 50 / 50 Other: # Voids 2 Date of Last Bowel Movement 10/15/17 10/15/17 # Bowel Movements 1 Result Diagrams: 10/16/17 05:15 10/16/17 05:15 Imaging: ITS Impressions Venous Doppler Study 10/09/17 23:12 CONCLUSION: 1. No DVT in either lower extremity Chest CTA 10/10/17 00:14 CONCLUSION: 1. Cardiomegaly and small bilateral pleural effusions. 2. No pulmonary embolism. Carotid Doppler Study 10/11/17 16:41 CONCLUSION: Unremarkable exam with no evidence of stenosis. Lower Extremity Ultrasound 10/11/17 16:41 CONCLUSION: 1. Venous mapping study as described. Chest X-Ray 10/16/17 05:00 CONCLUSION: Tubes and lines in good position. Minimal but improving medial left base atelectasis. Objective Remarks: GENERAL: 42-year-old AA male currently resting in chair on nasal cannula in no acute distress SKIN: Warm and dry. No rash. HEAD: Atraumatic. Normocephalic. EYES: Pupils equal and round about 2 mm bilaterally and react. No scleral icterus. No injection or drainage. ENT: No nasal bleeding or discharge. Mucous membranes pink and moist. NECK: Trachea midline. No JVD. CARDIOVASCULAR: Regular rate and rhythm. S1, S2 no S4. No murmur. Mediastinal chest tube in place with minimal output RESPIRATORY: No accessory muscle use. Clear to auscultation. Breath sounds equal bilaterally. Midline sternal incision/wound grafts clean dry and intact. GASTROINTESTINAL: Abdomen soft, non-tender, nondistended. Hepatic and splenic margins not palpable. MUSCULOSKELETAL: Extremities without clubbing, cyanosis, or edema. No obvious deformities. Lower extremity with bilateral DIANELYS hoses NEUROLOGICAL: Awake and alert. No obvious cranial nerve deficits. Motor grossly within normal limits. Five out of 5 muscle strength in the arms and legs. Normal speech. PSYCHIATRIC: Appropriate mood and affect; insight and judgment normal. Assessment and Plan - Assessment and Plan Plan: Neuro/Psych: THC use Acetaminophen 650 mg p.o. every 4 hours as needed fever Hydrocodone 5/325 1 tablet every 3 hours and morphine sulfate 1 mg IV every 10 minutes as needed pain management Dexmedetomidine drip at 0.5 m/kg/min post surgery discontinued after extubation. CV: Postop day #2 urgent off-pump coronary artery bypass grafting x 4 with left internal mammary artery (SMITH) to left anterior descending (LAD), reverse saphenous vein graft to diagonal 1 branch of the LAD, sequential reverse saphenous vein graft to the posterolateral branch and posterior descending branch of the right coronary artery along with left leg endoscopic vein harvest with intraoperative vein mapping. with a diagnosis of severe multi vessel coronary artery disease, cardiomyopathy severe left ventricular dysfunction ( EF 10-15%), and acute renal insufficiency. Three-vessel coronary disease Essential hypertension Currently on epinephrine drip weaned off dobutamine drip at 5 mcg/kg/min Continue with aspirin 81 mg daily and clopidogrel 75 mg daily Continue carvedilol 3.125 mg p.o. twice daily when off vasopressors Continue amiodarone 200 mg twice daily per surgery Resp: Postoperative respiratory failure Ongoing tobaccoism Nasal cannula to maintain saturations greater than or equal to 92%. Currently on 2 L Incentive spirometry while awake Albuterol/ipratropium aerosols every 6 hours 48 hours with every 2 hours as needed dyspnea Extubated 10/14 Tobacco use self-evaluation cessation booklet will be provided. GI: Advance diet per CT surgery Pantoprazole 40 mg daily for GI prophylaxis Docusate sodium 100 mg daily/polythene glycol 17 g daily for bowel regimen : Proctor catheter has been discontinued Endo: Currently on Novulog insulin sliding scale insulin diabetic per CT surgery TSH was 2.89 Renal: Monitor urine output Accurate I's and O's Creatinine has slowly normalized currently around 1 Heme: Microcytic anemia Monitor CBC daily. Follow trends. No indication for transfusion of blood products at this time. ID: Cefazolin received 2 g IV in OR MSK: PT evaluate and treat FEN: Hyperkalemia -resolved Replace electrolytes per CT surgery protocol Access -Utilize right IJ cordis with dual-lumen catheter day #3 placed in OR Prophylaxis -GI -pantoprazole -DVT -DIANELYS hose to bilateral lower extremity. Illogical prophylaxis per CT surgery Level 2 follow-up
[2017-10-16] MEDS: fentaNYL Citrate Inj 100 MCG/2 ML Ampul IV.PUSH PRN (07:19)
--- NOTE | 2017-10-16 09:03 | P.PNCV ---
- Note Subjective/Hospital Course: 42-year-old male recently seen in the emergency department with shortness of breath, cough, congestion, also sinus pressure, nasal discharge. They did a chest x-ray and he was diagnosed with pneumonia. He was sent home with a prescription for Levaquin, which he did not fill. He has been using saline spray at home. He re-presented to the emergency room with increasing lower extremity edema, still short of breath with no improvement. They did a CTA of the chest which showed no evidence of pulmonary emboli, some small bilateral effusions. They did venous Dopplers, which were negative for deep vein thrombosis. They did a 2-D echocardiogram, which showed an ejection fraction of 30 to 35%, moderately dilated left ventricle trace mitral valve regurgitation, trace tricuspid valve regurgitation. He underwent cardiac catheterization for evaluation. Proximal LAD was 80% stenosed and mid distal LAD 100%, the diagonal 100%, circumflex 80%, OM 90%, and RCA 100%. We were consulted to evaluate for coronary artery bypass grafting. 10/12 BNP now 1230 feels better, continue diuresis , recheck BNP in am eval surgery Tuesday or Tuesday when BNP<900 10/13 BNP improving , scheduled for surgery in am 10/14 SURGICAL PROCEDURE 1. Urgent Off-pump Coronary Artery Bypass Grafting x 4 with Left Internal Mammary Artery (SMITH) to Left Anterior Descending (LAD), reverse saphenous vein graft to diagonal 1 branch of the LAD, sequential reverse saphenous vein graft to the Posterolateral branch and Posterior Descending branch of the Right Coronary artery 2. Left leg Endoscopic Vein [employer] 3. Intraoperative Vein Mapping. 10/15 Clinically better this am Extubated and tolerating well Weaning Doubutamine gtt. Epi off Monitor electrolytes Greatly appreciate CCM input Will need Lifevest at discharge 10/16 Doing well. Off of all drips D/C CT today Transfer CPCU Objective: Vital Signs - 24 hr 10/15/17 09:50 10/15/17 09:51 10/15/17 11:00 Temperature 98.1 F Pulse Rate 97 H 103 H Respiratory Rate 20 16 Blood Pressure 111/84 Pulse Oximetry 95 94 L 10/15/17 11:59 10/15/17 13:29 10/15/17 14:21 Temperature Pulse Rate 100 H Respiratory Rate 16 16 22 Blood Pressure Pulse Oximetry 10/15/17 15:00 10/15/17 16:03 10/15/17 19:00 Temperature 98.6 F 98.7 F Pulse Rate 101 H 107 H Respiratory Rate 16 16 22 Blood Pressure 106/74 119/76 Pulse Oximetry 97 92 L 10/15/17 20:00 10/15/17 20:06 10/15/17 20:57 Temperature Pulse Rate 103 H Respiratory Rate 22 20 Blood Pressure Pulse Oximetry 95 99 10/15/17 23:00 10/16/17 03:00 10/16/17 03:24 Temperature 100 F H 98.8 F Pulse Rate 108 H 100 H Respiratory Rate 22 26 H 26 H Blood Pressure 120/73 123/75 Pulse Oximetry 95 96 10/16/17 07:00 10/16/17 08:44 10/16/17 08:45 Temperature 98.7 F Pulse Rate 98 H Respiratory Rate 16 16 16 Blood Pressure 100/68 Pulse Oximetry 97 Labs: Laboratory Results - last 12 hr 10/15/17 10/15/17 10/16/17 22:10 22:11 00:10 WBC RBC Hgb Hct MCV MCH MCHC RDW Plt Count MPV Neut % (Auto) Lymph % (Auto) [place] % (Auto) Eos % (Auto) Baso % (Auto) Neut # (Auto) Lymph # (Auto) [place] # (Auto) Eos # (Auto) Baso # (Auto) WBC Differential Differential Comment Sodium Potassium Chloride Carbon Dioxide Anion Gap BUN Creatinine Estimated GFR POC Glucose 70 68 158 H Random Glucose Calcium Magnesium 10/16/17 10/16/17 10/16/17 02:30 05:15 05:15 WBC 10.4 RBC 3.95 L Hgb 9.9 L Hct 30.5 L MCV 77.2 L MCH 25.1 L MCHC 32.6 RDW 16.2 Plt Count 282 MPV 7.5 Neut % (Auto) 60.9 Lymph % (Auto) 19.4 [place] % (Auto) 18.0 H Eos % (Auto) 1.2 Baso % (Auto) 0.5 Neut # (Auto) 6.3 Lymph # (Auto) 2.0 [place] # (Auto) 1.9 H Eos # (Auto) 0.1 Baso # (Auto) 0.1 WBC Differential . Differential Comment Auto diff final Sodium 138 Potassium 4.2 Chloride 102 Carbon Dioxide 28.3 Anion Gap 8 BUN 18 Creatinine 0.93 Estimated GFR Greater than 89 POC Glucose 162 H Random Glucose 93 Calcium 8.3 L Magnesium 2.1 10/16/17 06:29 WBC RBC Hgb Hct MCV MCH MCHC RDW Plt Count MPV Neut % (Auto) Lymph % (Auto) [place] % (Auto) Eos % (Auto) Baso % (Auto) Neut # (Auto) Lymph # (Auto) [place] # (Auto) Eos # (Auto) Baso # (Auto) WBC Differential Differential Comment Sodium Potassium Chloride Carbon Dioxide Anion Gap BUN Creatinine Estimated GFR POC Glucose 83 Random Glucose Calcium Magnesium Result Diagrams: 10/16/17 05:15 10/16/17 05:15 - Plan (1) CAD (coronary artery disease), [place] coronary artery Plan: ASA, statin BB scheduled for surgery in am (2) New onset of congestive heart failure Plan: continue diuresis BB start irma after surgery
[2017-10-16] MEDS: Magnesium Oxide 400 MG Tablet PO SCH ×2 (09:21→20:42)
[2017-10-16] MEDS: Multivitamin/Minerals Therapeutic Tablet PO SCH (09:21)
[2017-10-16] MEDS: Amiodarone 200 MG Tablet PO SCH ×2 (09:21→20:42)
[2017-10-16] MEDS: Docusate Sodium 100 MG Capsule PO SCH ×2 (09:22→20:42)
[2017-10-16] MEDS: Polyethylene Glycol 3350 17 GM Packet PO SCH (09:22)
--- NOTE | 2017-10-16 12:03 | P.PNCA ---
Subjective Interval history: No complaints Physical Exam Vital signs: Vital Signs 10/15/17 13:29 10/15/17 14:21 10/15/17 15:00 Temperature 98.6 F Pulse Rate 100 H 101 H Respiratory Rate 16 22 16 Blood Pressure 106/74 Pulse Oximetry 97 10/15/17 16:03 10/15/17 19:00 10/15/17 20:00 Temperature 98.7 F Pulse Rate 107 H Respiratory Rate 16 22 Blood Pressure 119/76 Pulse Oximetry 92 L 95 10/15/17 20:06 10/15/17 20:57 10/15/17 23:00 Temperature 100 F H Pulse Rate 103 H 108 H Respiratory Rate 22 20 22 Blood Pressure 120/73 Pulse Oximetry 99 95 10/16/17 03:00 10/16/17 03:24 10/16/17 07:00 Temperature 98.8 F 98.7 F Pulse Rate 100 H 98 H Respiratory Rate 26 H 26 H 16 Blood Pressure 123/75 100/68 Pulse Oximetry 96 97 10/16/17 08:44 10/16/17 08:45 10/16/17 10:26 Temperature Pulse Rate Respiratory Rate 16 16 Blood Pressure Pulse Oximetry 95 10/16/17 11:00 Temperature 98.8 F Pulse Rate 95 H Respiratory Rate 16 Blood Pressure 105/76 Pulse Oximetry 97 Intake & Output 10/15/17 10/16/17 10/16/17 18:59 06:59 18:59 Intake Total 896 / 896 100 / 100 Output Total 460 / 460 400 / 400 Balance 436 / 436 -300 / -300 Weight 90 kg Intake: IV 296 / 296 100 / 100 Dobutrex Inj 250 MG In NS Inj 40 / 40 230 ML @ 5 MCG/KG/MIN 25.47 mls /hr IV.CONT .Q9H49M [facility] Rx#: [id number] Precedex Inj 200 MCG In NS Inj 6 / 6 48 ML @ 0.2 MCG/KG/HR 4.24 mls/ hr IV.CONT TITRATE PRN Rx#: [id number] NovoLIN R (IV Infusion) 100 50 / 50 UNIT In NS Inj 99 ML @ 3 UNITS/ HR 3 mls/hr IV.CONT TITRATE PRN Rx#:[id number] Ancef Inj 2,000 MG In NS Inj 80 200 / 200 100 / 100 ML @ 200 mls/hr IV.SIG Q8H [facility] Rx#:[id number] Oral 600 / 600 Output: Urine 400 / 400 350 / 350 Chest Tube Drainage 60 / 60 50 / 50 Mediastinal 60 / 60 50 / 50 Other: # Voids 2 Date of Last Bowel Movement 10/15/17 10/15/17 10/16/17 # Bowel Movements 1 Narrative: Alert, NAD Chest clear CV S1S2 RRR +S3 gallop, no M Ext: tr edema Chest tubes out Tele SR 90's - Urinary Catheter Management Indwelling Temp Sensing Catheter Cath placed during this visit: yes, but has since been removed by the nurse Urethral indwelling: Yes Reason for continuing: Decision to DC catheter Insertion date: 10/14/17 Insertion time: 07:50 Removal date: 10/15/17 Removal time: 06:00 Assessment and Plan - Assessment (1) CAD (coronary artery disease), [place] coronary artery Code(s): I25.10 - Atherosclerotic heart disease of [place] coronary artery without angina pectoris Status: Acute - Plan 10/15 CAD s/p Off-pump CABG x 4 Cardiogenic Shock resolved, hemodynamically much ,ore stable 10/16 Looks more stable. Prob can add low dose beta alok tomorrow
[2017-10-17] MEDS: Insulin NovoLOG Aspart Correctional Sugar Inj SQ SCH ×5 (01:52→21:33)
[2017-10-17] MEDS: DOBUTAMINE IV.CONT SCH ×2 (01:52→09:47)
[2017-10-17] MEDS: SODIUM CHLOR 0.9% IV.CONT SCH ×2 (01:52→09:47)
[2017-10-17] MEDS: Magnesium Oxide 400 MG Tablet PO SCH ×2 (08:19→21:32)
[2017-10-17] MEDS: Multivitamin/Minerals Therapeutic Tablet PO SCH (08:19)
[2017-10-17] MEDS: Docusate Sodium 100 MG Capsule PO SCH ×2 (08:19→21:33)
[2017-10-17] MEDS: Amiodarone 200 MG Tablet PO SCH ×2 (08:21→21:32)
[2017-10-17] MEDS: Polyethylene Glycol 3350 17 GM Packet PO SCH (08:21)
[2017-10-17] MEDS ORDERED: Sod Phosphate/Sod Biphosphate (Adult) Enema 133 ML Bottle RECTAL PRN (09:00)
[2017-10-17 12:29] LABS: Anion Gap 5 meq/L (5-15); Blood Urea Nitrogen 13 mg/dL (7-18); Calcium 8.2 mg/dL (8.5-10.1); Carbon Dioxide 28.7 meq/L (21.0-32.0); Chloride 102 meq/L (98-107); Glomerular Filtration Rate Greater Than 89 mL/min (>89); Glucose,Random 157 mg/dL (74-106); Potassium 4.1 meq/L (3.5-5.1); Sodium 136 meq/L (136-145)
--- NOTE | 2017-10-17 16:25 | P.PNCV ---
- Note Subjective/Hospital Course: 42-year-old male recently seen in the emergency department with shortness of breath, cough, congestion, also sinus pressure, nasal discharge. They did a chest x-ray and he was diagnosed with pneumonia. He was sent home with a prescription for Levaquin, which he did not fill. He has been using saline spray at home. He re-presented to the emergency room with increasing lower extremity edema, still short of breath with no improvement. They did a CTA of the chest which showed no evidence of pulmonary emboli, some small bilateral effusions. They did venous Dopplers, which were negative for deep vein thrombosis. They did a 2-D echocardiogram, which showed an ejection fraction of 30 to 35%, moderately dilated left ventricle trace mitral valve regurgitation, trace tricuspid valve regurgitation. He underwent cardiac catheterization for evaluation. Proximal LAD was 80% stenosed and mid distal LAD 100%, the diagonal 100%, circumflex 80%, OM 90%, and RCA 100%. We were consulted to evaluate for coronary artery bypass grafting. 10/12 BNP now 1230 feels better, continue diuresis , recheck BNP in am eval surgery Tuesday or Tuesday when BNP<900 10/13 BNP improving , scheduled for surgery in am 10/14 SURGICAL PROCEDURE 1. Urgent Off-pump Coronary Artery Bypass Grafting x 4 with Left Internal Mammary Artery (SMITH) to Left Anterior Descending (LAD), reverse saphenous vein graft to diagonal 1 branch of the LAD, sequential reverse saphenous vein graft to the Posterolateral branch and Posterior Descending branch of the Right Coronary artery 2. Left leg Endoscopic Vein [place] 3. Intraoperative Vein Mapping. 10/15 Clinically better this am Extubated and tolerating well Weaning Doubutamine gtt. Epi off Monitor electrolytes Greatly appreciate CCM input Will need Lifevest at discharge 10/16 Doing well. Off of all drips D/C CT today Transfer CPCU 10/17 gentle diuresis on low dose BB consider ISSAC , on statin Life vest ordered for discharge Objective: Vital Signs - 24 hr 10/16/17 19:00 10/16/17 20:38 10/16/17 21:20 Temperature 99.0 F 98.8 F Pulse Rate 100 H 92 H 93 H Respiratory Rate 16 20 16 Blood Pressure 100/64 103/70 Pulse Oximetry 99 99 100 10/16/17 23:00 10/17/17 03:00 10/17/17 07:00 Temperature 98 F 97.9 F Pulse Rate 100 H 95 H 86 Respiratory Rate 16 16 18 Blood Pressure 109/66 105/68 Pulse Oximetry 100 100 100 10/17/17 08:07 10/17/17 11:00 10/17/17 12:00 Temperature 98.4 F Pulse Rate 91 H 92 H 91 H Respiratory Rate 14 18 Blood Pressure 109/62 Pulse Oximetry 99 99 10/17/17 13:00 10/17/17 13:59 10/17/17 14:00 Temperature Pulse Rate 99 H 96 H 100 H Respiratory Rate 16 Blood Pressure Pulse Oximetry 98 10/17/17 15:00 Temperature Pulse Rate 103 H Respiratory Rate Blood Pressure Pulse Oximetry GENERAL: A&O x 3 SKIN: Warm and dry. prevena dressing intact to chest HEAD: Normocephalic. EYES: No scleral icterus. No injection or drainage. NECK: Supple, trachea midline. No JVD or lymphadenopathy. CARDIOVASCULAR: Regular rate and rhythm without murmurs, gallops, or rubs. mild lower ext edema RESPIRATORY: Breath sounds equal bilaterally. No accessory muscle use. diminished in bases GASTROINTESTINAL: Abdomen soft, non-tender, nondistended. MUSCULOSKELETAL: No cyanosis, or edema. BACK: Nontender without obvious deformity. No CVA tenderness. Labs: Laboratory Results - last 12 hr 10/17/17 10/17/17 10/17/17 05:38 10:42 11:00 Sodium 136 Potassium 4.1 Chloride 102 Carbon Dioxide 28.7 Anion Gap 5 BUN 13 Creatinine 0.83 Estimated GFR Greater than 89 POC Glucose 130 H 157 H Random Glucose 157 H Calcium 8.2 L Result Diagrams: 10/16/17 05:15 10/17/17 11:00 Telemetry: NSR - Plan (1) CAD (coronary artery disease), [place] coronary artery Plan: ASA, statin BB start ISSAC pulm toileting nebs , ezpap (2) New onset of congestive heart failure Plan: continue diuresis BB start issac after surgery
[2017-10-18] MEDS: Insulin NovoLOG Aspart Correctional Sugar Inj SQ SCH ×4 (08:17→20:19)
[2017-10-18] MEDS: Multivitamin/Minerals Therapeutic Tablet PO SCH (08:18)
[2017-10-18] MEDS: Magnesium Oxide 400 MG Tablet PO SCH ×2 (08:19→20:20)
[2017-10-18] MEDS: Amiodarone 200 MG Tablet PO SCH ×2 (08:20→20:20)
[2017-10-18] MEDS: Polyethylene Glycol 3350 17 GM Packet PO SCH (08:20)
[2017-10-18] MEDS: Docusate Sodium 100 MG Capsule PO SCH ×2 (08:20→20:21)
--- NOTE | 2017-10-18 10:25 | P.PNCV ---
- Note Subjective/Hospital Course: 42-year-old male recently seen in the emergency department with shortness of breath, cough, congestion, also sinus pressure, nasal discharge. They did a chest x-ray and he was diagnosed with pneumonia. He was sent home with a prescription for Levaquin, which he did not fill. He has been using saline spray at home. He re-presented to the emergency room with increasing lower extremity edema, still short of breath with no improvement. They did a CTA of the chest which showed no evidence of pulmonary emboli, some small bilateral effusions. They did venous Dopplers, which were negative for deep vein thrombosis. They did a 2-D echocardiogram, which showed an ejection fraction of 30 to 35%, moderately dilated left ventricle trace mitral valve regurgitation, trace tricuspid valve regurgitation. He underwent cardiac catheterization for evaluation. Proximal LAD was 80% stenosed and mid distal LAD 100%, the diagonal 100%, circumflex 80%, OM 90%, and RCA 100%. We were consulted to evaluate for coronary artery bypass grafting. 10/12 BNP now 1230 feels better, continue diuresis , recheck BNP in am eval surgery Tuesday or Tuesday when BNP<900 10/13 BNP improving , scheduled for surgery in am 10/14 SURGICAL PROCEDURE 1. Urgent Off-pump Coronary Artery Bypass Grafting x 4 with Left Internal Mammary Artery (SMITH) to Left Anterior Descending (LAD), reverse saphenous vein graft to diagonal 1 branch of the LAD, sequential reverse saphenous vein graft to the Posterolateral branch and Posterior Descending branch of the Right Coronary artery 2. Left leg Endoscopic Vein [place] 3. Intraoperative Vein Mapping. 10/15 Clinically better this am Extubated and tolerating well Weaning Dobutamine gtt. Epi off Monitor electrolytes Greatly appreciate CCM input Will need Lifevest at discharge 10/16 Doing well. Off of all drips D/C CT today Transfer CPCU 10/17 gentle diuresis on low dose BB consider ISSAC , on statin Life vest ordered for discharge 10/18 f/u BMP in am Coreg increased waiting on Lifevest approval remain sin NSR Objective: Vital Signs - 24 hr 10/17/17 11:00 10/17/17 12:00 10/17/17 13:00 Temperature 98.4 F Pulse Rate 92 H 91 H 99 H Respiratory Rate 18 Blood Pressure 109/62 Pulse Oximetry 99 10/17/17 13:59 10/17/17 14:00 10/17/17 15:00 Temperature Pulse Rate 96 H 100 H 103 H Respiratory Rate 16 Blood Pressure Pulse Oximetry 98 10/17/17 16:00 10/17/17 17:00 10/17/17 18:00 Temperature 98.2 F Pulse Rate 96 H 100 H 102 H Respiratory Rate 16 Blood Pressure 104/68 Pulse Oximetry 100 10/17/17 19:00 10/17/17 19:58 10/17/17 20:00 Temperature 98.3 F Pulse Rate 97 H 99 H 96 H Respiratory Rate 16 Blood Pressure 109/65 Pulse Oximetry 99 10/17/17 21:00 10/17/17 21:22 10/17/17 22:00 Temperature Pulse Rate 96 H 94 H Respiratory Rate Blood Pressure Pulse Oximetry 99 10/17/17 22:02 10/17/17 23:00 10/18/17 00:00 Temperature Pulse Rate 96 H 90 Respiratory Rate 18 Blood Pressure Pulse Oximetry 10/18/17 00:06 10/18/17 01:00 10/18/17 02:00 Temperature 98.7 F Pulse Rate 90 86 88 Respiratory Rate 16 Blood Pressure 102/60 Pulse Oximetry 98 10/18/17 03:00 10/18/17 04:00 10/18/17 04:57 Temperature 98.5 F Pulse Rate 91 H 90 85 Respiratory Rate 18 Blood Pressure 112/72 Pulse Oximetry 99 10/18/17 06:00 10/18/17 07:00 10/18/17 08:00 Temperature 98.5 F Pulse Rate 86 88 86 Respiratory Rate 16 Blood Pressure 116/79 Pulse Oximetry 99 10/18/17 09:00 Temperature Pulse Rate 88 Respiratory Rate Blood Pressure Pulse Oximetry GENERAL: A&O x 3 SKIN: Warm and dry. Prevena dressing to chest , incision intact to left leg HEAD: Normocephalic. EYES: No scleral icterus. No injection or drainage. NECK: Supple, trachea midline. No JVD or lymphadenopathy. CARDIOVASCULAR: Regular rate and rhythm without murmurs, gallops, or rubs. +1 -2 edema lower ext RESPIRATORY: Breath sounds equal bilaterally. No accessory muscle use. GASTROINTESTINAL: Abdomen soft, non-tender, nondistended. MUSCULOSKELETAL: No cyanosis, or edema. BACK: Nontender without obvious deformity. No CVA tenderness. Labs: Laboratory Results - last 12 hr 10/18/17 07:43 POC Glucose 130 H Result Diagrams: 10/16/17 05:15 10/17/17 11:00 - Plan (1) CAD (coronary artery disease), [place] coronary artery Plan: ASA, statin BB start ISSAC pulm toileting nebs , ezpap (2) New onset of congestive heart failure Plan: continue diuresis BB low dose ISSAC (3) S/P CABG x 4 Plan: on ASA, statin , BB , plavix OOB ambulate pulm toileting
--- NOTE | 2017-10-18 13:25 | P.PNCA ---
Subjective Interval history: Doing better shortness of breath improving. Physical Exam Vital signs: Vital Signs 10/17/17 13:59 10/17/17 14:00 10/17/17 15:00 Temperature Pulse Rate 96 H 100 H 103 H Respiratory Rate 16 Blood Pressure Pulse Oximetry 98 10/17/17 16:00 10/17/17 17:00 10/17/17 18:00 Temperature 98.2 F Pulse Rate 96 H 100 H 102 H Respiratory Rate 16 Blood Pressure 104/68 Pulse Oximetry 100 10/17/17 19:00 10/17/17 19:58 10/17/17 20:00 Temperature 98.3 F Pulse Rate 97 H 99 H 96 H Respiratory Rate 16 Blood Pressure 109/65 Pulse Oximetry 99 10/17/17 21:00 10/17/17 21:22 10/17/17 22:00 Temperature Pulse Rate 96 H 94 H Respiratory Rate Blood Pressure Pulse Oximetry 99 10/17/17 22:02 10/17/17 23:00 10/18/17 00:00 Temperature Pulse Rate 96 H 90 Respiratory Rate 18 Blood Pressure Pulse Oximetry 10/18/17 00:06 10/18/17 01:00 10/18/17 02:00 Temperature 98.7 F Pulse Rate 90 86 88 Respiratory Rate 16 Blood Pressure 102/60 Pulse Oximetry 98 10/18/17 03:00 10/18/17 04:00 10/18/17 04:57 Temperature 98.5 F Pulse Rate 91 H 90 85 Respiratory Rate 18 Blood Pressure 112/72 Pulse Oximetry 99 10/18/17 06:00 10/18/17 07:00 10/18/17 08:00 Temperature 98.5 F Pulse Rate 86 88 86 Respiratory Rate 16 Blood Pressure 116/79 Pulse Oximetry 99 10/18/17 09:00 10/18/17 10:00 10/18/17 12:00 Temperature 98.7 F Pulse Rate 88 90 71 Respiratory Rate 16 Blood Pressure 101/69 Pulse Oximetry 100 Intake & Output 10/17/17 10/18/17 10/18/17 18:59 06:59 18:59 Intake Total 820 / 820 200 / 200 Output Total 950 / 950 Balance -130 / -130 200 / 200 Weight 91 kg Intake: Oral 820 / 820 200 / 200 Output: Urine 950 / 950 Other: # Voids 2 Date of Last Bowel Movement 10/17/17 10/17/17 10/17/17 # Bowel Movements 3 - Constitutional no acute distress - Routine Respiratory Exam Present: crackles (mild at base) - Routine Cardiovascular Exam Present: RRR, S1, S2 - Routine Abdominal Exam Present: soft, normoactive bowel sounds - Routine Neurological Exam Present: alert, oriented X3 - Urinary Catheter Management Indwelling Temp Sensing Catheter Cath placed during this visit: yes, but has since been removed by the nurse Urethral indwelling: Yes Reason for continuing: Decision to DC catheter Insertion date: 10/14/17 Insertion time: 07:50 Removal date: 10/15/17 Removal time: 06:00 Assessment and Plan - Plan CAD s/p 4 vessel CABG New Onset Systolic HF -Uptitrate coreg to 6.25mg po BID and continue gentle IV diuresis start ISSAC, monitor BMP continue ASA, Plavix, statin, and amio awaiting life vest prior to d/c
--- NOTE | 2017-10-18 14:48 | P.PNIM ---
Subjective Interval history: Patient says he is feeling well. Reports pain is controlled. Denies any shortness of breath. Denies nausea vomiting. Physical Exam Vital signs: Vital Signs 10/17/17 15:00 10/17/17 16:00 10/17/17 17:00 Temperature 98.2 F Pulse Rate 103 H 96 H 100 H Respiratory Rate 16 Blood Pressure 104/68 Pulse Oximetry 100 10/17/17 18:00 10/17/17 19:00 10/17/17 19:58 Temperature 98.3 F Pulse Rate 102 H 97 H 99 H Respiratory Rate 16 Blood Pressure 109/65 Pulse Oximetry 99 10/17/17 20:00 10/17/17 21:00 10/17/17 21:22 Temperature Pulse Rate 96 H 96 H Respiratory Rate Blood Pressure Pulse Oximetry 99 10/17/17 22:00 10/17/17 22:02 10/17/17 23:00 Temperature Pulse Rate 94 H 96 H Respiratory Rate 18 Blood Pressure Pulse Oximetry 10/18/17 00:00 10/18/17 00:06 10/18/17 01:00 Temperature 98.7 F Pulse Rate 90 90 86 Respiratory Rate 16 Blood Pressure 102/60 Pulse Oximetry 98 10/18/17 02:00 10/18/17 03:00 10/18/17 04:00 Temperature 98.5 F Pulse Rate 88 91 H 90 Respiratory Rate 18 Blood Pressure 112/72 Pulse Oximetry 99 10/18/17 04:57 10/18/17 06:00 10/18/17 07:00 Temperature Pulse Rate 85 86 88 Respiratory Rate Blood Pressure Pulse Oximetry 10/18/17 08:00 10/18/17 09:00 10/18/17 10:00 Temperature 98.5 F Pulse Rate 86 88 90 Respiratory Rate 16 Blood Pressure 116/79 Pulse Oximetry 99 10/18/17 12:00 10/18/17 13:00 10/18/17 14:00 Temperature 98.7 F Pulse Rate 71 92 H 78 Respiratory Rate 16 Blood Pressure 101/69 Pulse Oximetry 100 Intake & Output 10/17/17 10/18/17 10/18/17 18:59 06:59 18:59 Intake Total 820 / 820 200 / 200 Output Total 950 / 950 Balance -130 / -130 200 / 200 Weight 91 kg Intake: Oral 820 / 820 200 / 200 Output: Urine 950 / 950 Other: # Voids 2 Date of Last Bowel Movement 10/17/17 10/17/17 10/17/17 # Bowel Movements 3 Narrative: GENERAL: Patient sitting up in bed. Appears comfortable. Alert and oriented 3. SKIN: Warm and dry. HEAD: Normocephalic. EYES: No scleral icterus. No injection or drainage. NECK: Supple, trachea midline. No JVD or lymphadenopathy. CARDIOVASCULAR: Regular rate and rhythm without murmurs, gallops, or rubs. RESPIRATORY: Breath sounds equal bilaterally. No accessory muscle use. Chest dressing clean dry and intact. GASTROINTESTINAL: Abdomen soft, non-tender, nondistended. MUSCULOSKELETAL: No cyanosis, or edema. BACK: Nontender without obvious deformity. No CVA tenderness. - Urinary Catheter Management Indwelling Temp Sensing Catheter Cath placed during this visit: yes, but has since been removed by the nurse Urethral indwelling: Yes Reason for continuing: Decision to DC catheter Insertion date: 10/14/17 Insertion time: 07:50 Removal date: 10/15/17 Removal time: 06:00 Results - Labs CBC & Chem 7: 10/16/17 05:15 10/17/17 11:00 Laboratory Results - last 24 hr 10/17/17 10/17/17 10/18/17 16:42 21:31 07:43 POC Glucose 153 H 104 130 H 10/18/17 10:47 POC Glucose 228 H Assessment and Plan - Plan 10/18. Patient seen and examined. Discussed with cardiothoracic surgery. Will need LifeVest and training given. Neuro/Psych: //THC use = Cessation counseling provided. //Postop urgent off-pump coronary artery bypass grafting x 4 with left internal mammary artery (SMITH) to left anterior descending (LAD), reverse saphenous vein graft to diagonal 1 branch of the LAD, sequential reverse saphenous vein graft to the posterolateral branch and posterior descending branch of the right coronary artery along with left leg endoscopic vein harvest with intraoperative vein mapping. with a diagnosis of severe multi vessel coronary artery disease, cardiomyopathy severe left ventricular dysfunction (EF 10-15%), and acute renal insufficiency. Three-vessel coronary disease Essential hypertension = Awaiting LifeVest. Will need surgical clearance. Resp: //Postoperative respiratory failure -resolved. Patient ambulating without difficulty. //Ongoing tobaccoismcessation counseling provided. //Diabetes mellitus. A1c 9.9. Uncontrolled. Currently on Novulog insulin sliding scale insulin diabetic per CT surgery TSH was 2.89 //Microcytic anemia //Hyperkalemia -resolved //DVT -DIANELYS hose to bilateral lower extremity. Illogical prophylaxis per CT surgery Discharge Planning: Pending cardiothoracic and cardiology clearance.
[2017-10-18] MEDS: Carvedilol 6.25 MG Tablet PO SCH (20:20)
[2017-10-19 04:51] LABS: Anion Gap 6 meq/L (5-15); Blood Urea Nitrogen 16 mg/dL (7-18); Calcium 8.5 mg/dL (8.5-10.1); Carbon Dioxide 29.5 meq/L (21.0-32.0); Chloride 100 meq/L (98-107); Glomerular Filtration Rate Greater Than 89 mL/min (>89); Glucose,Random 142 mg/dL (74-106); Magnesium 1.9 mg/dL (1.5-2.5); Potassium 4.1 meq/L (3.5-5.1); Sodium 135 meq/L (136-145)
[2017-10-19] MEDS: Magnesium Oxide 400 MG Tablet PO SCH (08:08)
[2017-10-19] MEDS: Carvedilol 6.25 MG Tablet PO SCH (08:09)
[2017-10-19] MEDS: Insulin NovoLOG Aspart Correctional Sugar Inj SQ SCH (08:09)
[2017-10-19] MEDS: Multivitamin/Minerals Therapeutic Tablet PO SCH (08:09)
[2017-10-19] MEDS: Amiodarone 200 MG Tablet PO SCH (08:09)
[2017-10-19] MEDS: Polyethylene Glycol 3350 17 GM Packet PO SCH (08:11)
[2017-10-19] MEDS: Docusate Sodium 100 MG Capsule PO SCH (08:11)
--- NOTE | 2017-10-19 09:34 | P.PNIM ---
Subjective Interval history: Patient walking around. Says he is feeling all right. Denies any pain. Denies any nausea or vomiting. Denies constipation. LifeVest in place. Physical Exam Vital signs: Vital Signs 10/18/17 10:00 10/18/17 12:00 10/18/17 13:00 Temperature 98.7 F Pulse Rate 90 71 92 H Respiratory Rate 16 Blood Pressure 101/69 Pulse Oximetry 100 10/18/17 14:00 10/18/17 15:00 10/18/17 16:00 Temperature 98.6 F Pulse Rate 78 88 88 Respiratory Rate 18 Blood Pressure 96/58 L Pulse Oximetry 100 10/18/17 17:00 10/18/17 18:00 10/18/17 20:30 Temperature Pulse Rate 90 78 92 H Respiratory Rate Blood Pressure Pulse Oximetry 10/18/17 20:47 10/18/17 21:01 10/18/17 22:58 Temperature 98.5 F Pulse Rate 95 H 95 H 80 Respiratory Rate 20 Blood Pressure 115/67 Pulse Oximetry 100 10/18/17 23:07 10/19/17 00:04 10/19/17 01:50 Temperature 98.7 F Pulse Rate 79 77 78 Respiratory Rate 19 Blood Pressure 97/61 L Pulse Oximetry 100 10/19/17 02:30 10/19/17 03:00 10/19/17 03:18 Temperature 98.4 F Pulse Rate 76 77 78 Respiratory Rate 20 Blood Pressure 111/72 Pulse Oximetry 100 10/19/17 04:24 10/19/17 05:02 10/19/17 06:03 Temperature Pulse Rate 84 82 86 Respiratory Rate Blood Pressure Pulse Oximetry 10/19/17 07:00 Temperature 98.0 F Pulse Rate 83 Respiratory Rate 12 Blood Pressure 124/74 Pulse Oximetry 99 Intake & Output 10/18/17 10/19/17 10/19/17 18:59 06:59 18:59 Intake Total 960 / 960 480 / 480 Balance 960 / 960 480 / 480 Weight 88.9 kg Intake: Oral 960 / 960 480 / 480 Other: # Voids 5 2 Date of Last Bowel Movement 10/18/17 # Bowel Movements 3 Narrative: GENERAL: Patient walking in [place]. Appears comfortable. Alert and oriented 3. SKIN: Warm and dry. HEAD: Normocephalic. EYES: No scleral icterus. No injection or drainage. NECK: Supple, trachea midline. No JVD or lymphadenopathy. CARDIOVASCULAR: Regular rate and rhythm without murmurs, gallops, or rubs. RESPIRATORY: Breath sounds equal bilaterally. No accessory muscle use. Chest dressing clean dry and intact. GASTROINTESTINAL: Abdomen soft, non-tender, nondistended. MUSCULOSKELETAL: No cyanosis, or edema. BACK: Nontender without obvious deformity. No CVA tenderness. - Urinary Catheter Management Indwelling Temp Sensing Catheter Cath placed during this visit: yes, but has since been removed by the nurse Urethral indwelling: Yes Reason for continuing: Decision to DC catheter Insertion date: 10/14/17 Insertion time: 07:50 Removal date: 10/15/17 Removal time: 06:00 Results - Labs CBC & Chem 7: 10/16/17 05:15 10/19/17 04:11 Laboratory Results - last 24 hr 10/18/17 10/18/17 10/18/17 10:47 17:06 20:08 Sodium Potassium Chloride Carbon Dioxide Anion Gap BUN Creatinine Estimated GFR POC Glucose 228 H 114 H 135 H Random Glucose Calcium Magnesium 10/19/17 10/19/17 04:11 07:56 Sodium 135 L Potassium 4.1 Chloride 100 Carbon Dioxide 29.5 Anion Gap 6 BUN 16 Creatinine 1.02 Estimated GFR Greater than 89 POC Glucose 150 H Random Glucose 142 H Calcium 8.5 Magnesium 1.9 Assessment and Plan - Plan 10/18. Patient seen and examined. Discussed with cardiothoracic surgery. Will need LifeVest and training given. Neuro/Psych: //Postop urgent off-pump coronary artery bypass grafting x 4 with left internal mammary artery (SMITH) to left anterior descending (LAD), reverse saphenous vein graft to diagonal 1 branch of the LAD, sequential reverse saphenous vein graft to the posterolateral branch and posterior descending branch of the right coronary artery along with left leg endoscopic vein harvest with intraoperative vein mapping. with a diagnosis of severe multi vessel coronary artery disease, cardiomyopathy severe left ventricular dysfunction (EF 10-15%), and acute renal insufficiency. Three-vessel coronary disease Essential hypertension = LifeVest in place. Discharge when cleared by cardiothoracic surgery. Resp: //Postoperative respiratory failure -resolved. Patient ambulating without difficulty. //Ongoing tobaccoismcessation counseling provided. //Diabetes mellitus. A1c 9.9. Uncontrolled. Currently on Novulog insulin sliding scale insulin diabetic per CT surgery TSH was 2.89 //Microcytic anemia We will prescribe iron supplementation. Patient will need GI workup. //THC use = Cessation counseling provided. //Hyperkalemia -resolved //DVT -DIANELYS hose to bilateral lower extremity. Illogical prophylaxis per CT surgery Discharge Planning: Pending cardiothoracic clearance.. Follow-up with cardiothoracic surgery and cardiology as outpatient.
--- NOTE | 2017-10-19 09:41 | P.DS ---
Date of admission: 10/10/17 19:27 Primary care physician: No Primary Care Physician Brief History from admission: 42-year-old male with no significant past medical history presents the emergency department for the evaluation of lower extremity edema. The patient reports he was seen last week in the emergency department where he was diagnosed with possible pneumonia, given a prescription for Levaquin which she did not fill secondary to financial reasons, and sent home. He reports that he has had shortness of breath for the past 2-3 weeks with orthopnea and paroxysmal nocturnal dyspnea. He has had bilateral lower extremity weakness for the past several weeks which has been worsening. He denies any chest pain. No fever/chills. Positive sinus pressure and productive cough. No abdominal pain. No nausea/vomiting/diarrhea. DS: Medications - Discharge Medications Prescriptions: amiodarone 200 mg PO Q12HR 30 Days tab aspirin 81 mg PO DAILY 30 Days #30 tab atorvastatin 40 mg PO HS 30 Days #30 tab carvedilol [Coreg] 6.25 mg PO BID 30 Days #60 tab clopidogrel [Plavix] 75 mg PO DAILY 30 Days #30 tab ferrous sulfate [Diana-Time] 325 mg PO DAILY #30 tab hydrocodone-acetaminophen 1 tab PO Q4H PRN #12 tab PRN Reason: Pain Scale 1 To 5 magnesium oxide 400 mg PO DAILY 30 Days #30 tab metformin 500 mg PO BID 30 Days #60 tab polyethylene glycol 3350 17 gm PO DAILY 30 Days each ramipril 1.25 mg PO DAILY 30 Days #30 cap DS: Summary Hospital Course: Patient presented with new onset CHF, pulmonary edema, BNP of 1700. Patient was diuresed with improvement. Patient underwent cardiac catheterization with multivessel coronary artery disease. Echocardiogram showed ejection fraction of 3035%. Cardiothoracic surgery was consulted and patient underwent CABG 4. Patient did have postoperative respiratory failure which resolved. Patient subsequently ambulatory, feeling better. Patient noted to have diabetes with A1c 7.8, and will be started on metformin and dietary modification. For problem based summary from most recent progress note, please see below. //Postop urgent off-pump coronary artery bypass grafting x 4 with left internal mammary artery (SMITH) to left anterior descending (LAD), reverse saphenous vein graft to diagonal 1 branch of the LAD, sequential reverse saphenous vein graft to the posterolateral branch and posterior descending branch of the right coronary artery along with left leg endoscopic vein harvest with intraoperative vein mapping. with a diagnosis of severe multi vessel coronary artery disease, cardiomyopathy severe left ventricular dysfunction (EF 10-15%), and acute renal insufficiency. Three-vessel coronary disease Essential hypertension = LifeVest in place. Discharge when cleared by cardiothoracic surgery. Resp: //Postoperative respiratory failure -resolved. Patient ambulating without difficulty. //Ongoing tobaccoismcessation counseling provided. //Diabetes mellitus. A1c 7.8 Currently on Novulog insulin sliding scale insulin diabetic per CT surgery TSH was 2.89 = Patient will go home on metformin and dietary modification. //Microcytic anemia We will prescribe iron supplementation. Patient will need GI workup. //THC use = Cessation counseling provided. //Hyperkalemia -resolved //DVT -DIANELYS hose to bilateral lower extremity. Illogical prophylaxis per CT surgery Discharge Planning: Pending cardiothoracic clearance.. Follow-up with cardiothoracic surgery and cardiology as outpatient. - Time Spent with Patient Total time spent providing and/or coordinating discharge services: Greater than 30 minutes - Quality: VTE Deep Vein Thrombosis/Pulmonary Embolism Present on Admission: No Exam Vital signs: Vital Signs 10/18/17 10:00 10/18/17 12:00 10/18/17 13:00 Temperature 98.7 F Pulse Rate 90 71 92 H Respiratory Rate 16 Blood Pressure 101/69 Pulse Oximetry 100 10/18/17 14:00 10/18/17 15:00 10/18/17 16:00 Temperature 98.6 F Pulse Rate 78 88 88 Respiratory Rate 18 Blood Pressure 96/58 L Pulse Oximetry 100 10/18/17 17:00 10/18/17 18:00 10/18/17 20:30 Temperature Pulse Rate 90 78 92 H Respiratory Rate Blood Pressure Pulse Oximetry 10/18/17 20:47 10/18/17 21:01 10/18/17 22:58 Temperature 98.5 F Pulse Rate 95 H 95 H 80 Respiratory Rate 20 Blood Pressure 115/67 Pulse Oximetry 100 10/18/17 23:07 10/19/17 00:04 10/19/17 01:50 Temperature 98.7 F Pulse Rate 79 77 78 Respiratory Rate 19 Blood Pressure 97/61 L Pulse Oximetry 100 10/19/17 02:30 10/19/17 03:00 10/19/17 03:18 Temperature 98.4 F Pulse Rate 76 77 78 Respiratory Rate 20 Blood Pressure 111/72 Pulse Oximetry 100 10/19/17 04:24 10/19/17 05:02 10/19/17 06:03 Temperature Pulse Rate 84 82 86 Respiratory Rate Blood Pressure Pulse Oximetry 10/19/17 07:00 Temperature 98.0 F Pulse Rate 83 Respiratory Rate 12 Blood Pressure 124/74 Pulse Oximetry 99 Intake & Output 10/18/17 10/19/17 10/19/17 18:59 06:59 18:59 Intake Total 960 / 960 480 / 480 Balance 960 / 960 480 / 480 Weight 88.9 kg Intake: Oral 960 / 960 480 / 480 Other: # Voids 5 2 Date of Last Bowel Movement 10/18/17 # Bowel Movements 3 Results Procedures completed during hospitalization: Cardiac catheterization CABG 4. Labs on day of discharge: Labs from last 24 hours 10/19/17 10/19/17 10/18/17 07:56 04:11 20:08 Sodium 135 L Potassium 4.1 Chloride 100 Carbon Dioxide 29.5 Anion Gap 6 BUN 16 Creatinine 1.02 Estimated GFR Greater than 89 POC Glucose 150 H 135 H Random Glucose 142 H Calcium 8.5 Magnesium 1.9 10/18/17 10/18/17 17:06 10:47 Sodium Potassium Chloride Carbon Dioxide Anion Gap BUN Creatinine Estimated GFR POC Glucose 114 H 228 H Random Glucose Calcium Magnesium - Impressions ITS Impressions Venous Doppler Study 10/09/17 23:12 CONCLUSION: 1. No DVT in either lower extremity Chest CTA 10/10/17 00:14 CONCLUSION: 1. Cardiomegaly and small bilateral pleural effusions. 2. No pulmonary embolism. Carotid Doppler Study 10/11/17 16:41 CONCLUSION: Unremarkable exam with no evidence of stenosis. Lower Extremity Ultrasound 10/11/17 16:41 CONCLUSION: 1. Venous mapping study as described. Chest X-Ray 10/16/17 05:00 CONCLUSION: Tubes and lines in good position. Minimal but improving medial left base atelectasis. Discharge Plan - Discharge Disposition Patient Disposition: W/Home Health Service - Discharge Condition Condition: Good - Discharge Order Discharge Orders: Discharge Order (Routine); Ordered 10/19/17 Ordered By: Diego Frey - Discharge Details Anticipated Discharge Date: 10/19/17 - Physicians Team Primary Care Provider: Primary Care Physici,No Attending Provider: Diego Frey Other Providers: Rei Alejo MD ; Francie Moyer MD ; Matheus Ruiz MD
--- NOTE | 2017-10-19 10:20 | P.PNCV ---
- Note Subjective/Hospital Course: 42-year-old male recently seen in the emergency department with shortness of breath, cough, congestion, also sinus pressure, nasal discharge. They did a chest x-ray and he was diagnosed with pneumonia. He was sent home with a prescription for Levaquin, which he did not fill. He has been using saline spray at home. He re-presented to the emergency room with increasing lower extremity edema, still short of breath with no improvement. They did a CTA of the chest which showed no evidence of pulmonary emboli, some small bilateral effusions. They did venous Dopplers, which were negative for deep vein thrombosis. They did a 2-D echocardiogram, which showed an ejection fraction of 30 to 35%, moderately dilated left ventricle trace mitral valve regurgitation, trace tricuspid valve regurgitation. He underwent cardiac catheterization for evaluation. Proximal LAD was 80% stenosed and mid distal LAD 100%, the diagonal 100%, circumflex 80%, OM 90%, and RCA 100%. We were consulted to evaluate for coronary artery bypass grafting. 10/12 BNP now 1230 feels better, continue diuresis , recheck BNP in am eval surgery Tuesday or Tuesday when BNP<900 10/13 BNP improving , scheduled for surgery in am 10/14 SURGICAL PROCEDURE 1. Urgent Off-pump Coronary Artery Bypass Grafting x 4 with Left Internal Mammary Artery (SMITH) to Left Anterior Descending (LAD), reverse saphenous vein graft to diagonal 1 branch of the LAD, sequential reverse saphenous vein graft to the Posterolateral branch and Posterior Descending branch of the Right Coronary artery 2. Left leg Endoscopic Vein Paulina 3. Intraoperative Vein Mapping. 10/15 Clinically better this am Extubated and tolerating well Weaning Dobutamine gtt. Epi off Monitor electrolytes Greatly appreciate CCM input Will need Lifevest at discharge 10/16 Doing well. Off of all drips D/C CT today Transfer [facility] 10/17 gentle diuresis on low dose BB consider ISSAC , on statin Life vest ordered for discharge 10/18 f/u BMP in am Coreg increased waiting on Lifevest approval remains in NSR 10/19 stable for dc with Life vest continue amiodarone for 14 days only Objective: Vital Signs - 24 hr 10/18/17 12:00 10/18/17 13:00 10/18/17 14:00 Temperature 98.7 F Pulse Rate 71 92 H 78 Respiratory Rate 16 Blood Pressure 101/69 Pulse Oximetry 100 10/18/17 15:00 10/18/17 16:00 10/18/17 17:00 Temperature 98.6 F Pulse Rate 88 88 90 Respiratory Rate 18 Blood Pressure 96/58 L Pulse Oximetry 100 10/18/17 18:00 10/18/17 20:30 10/18/17 20:47 Temperature 98.5 F Pulse Rate 78 92 H 95 H Respiratory Rate 20 Blood Pressure 115/67 Pulse Oximetry 100 10/18/17 21:01 10/18/17 22:58 10/18/17 23:07 Temperature 98.7 F Pulse Rate 95 H 80 79 Respiratory Rate 19 Blood Pressure 97/61 L Pulse Oximetry 100 10/19/17 00:04 10/19/17 01:50 10/19/17 02:30 Temperature Pulse Rate 77 78 76 Respiratory Rate Blood Pressure Pulse Oximetry 10/19/17 03:00 10/19/17 03:18 10/19/17 04:24 Temperature 98.4 F Pulse Rate 77 78 84 Respiratory Rate 20 Blood Pressure 111/72 Pulse Oximetry 100 10/19/17 05:02 10/19/17 06:03 10/19/17 07:00 Temperature 98.0 F Pulse Rate 82 86 83 Respiratory Rate 12 Blood Pressure 124/74 Pulse Oximetry 99 10/19/17 08:00 Temperature Pulse Rate 94 H Respiratory Rate Blood Pressure Pulse Oximetry GENERAL: A&O x 3 SKIN: Warm and dry. prevena dressing to chest HEAD: Normocephalic. EYES: No scleral icterus. No injection or drainage. NECK: Supple, trachea midline. No JVD or lymphadenopathy. CARDIOVASCULAR: Regular rate and rhythm without murmurs, gallops, or rubs. RESPIRATORY: Breath sounds equal bilaterally. No accessory muscle use. diminished in bases GASTROINTESTINAL: Abdomen soft, non-tender, nondistended. MUSCULOSKELETAL: No cyanosis, or edema. BACK: Nontender without obvious deformity. No CVA tenderness. Labs: Laboratory Results - last 12 hr 10/19/17 10/19/17 04:11 07:56 Sodium 135 L Potassium 4.1 Chloride 100 Carbon Dioxide 29.5 Anion Gap 6 BUN 16 Creatinine 1.02 Estimated GFR Greater than 89 POC Glucose 150 H Random Glucose 142 H Calcium 8.5 Magnesium 1.9 Result Diagrams: 10/16/17 05:15 10/19/17 04:11 - Plan (1) CAD (coronary artery disease), craig coronary artery Plan: ASA, statin BB start ISSAC pulm toileting nebs , ezpap (2) New onset of congestive heart failure Plan: continue diuresis BB low dose ISSAC (3) S/P CABG x 4 Plan: on ASA, statin , BB , plavix OOB ambulate pulm toileting ok to dc from [facility] standpoint
--- NOTE | 2017-10-19 10:34 | P.DCO ---
- Diagnosis (2) CAD (coronary artery disease), [place] coronary artery - Home Health Nursing Order: Medical education, Signs/symptoms of disease process, Diabetic education , CHF education, Wound care and dressing changes, Nursing assessment with vital signs Instructions: Heart and Vascular Surgery patients *Special attention to sternal dressing Mandatory frequency Assess and evaluation, 4 days in a row The next week 3X week 2 times a week for 4 weeks 1 time a week for 5 weeks Schedule Heart and Vascular patients for full 60 day certification period Initial visit Review Open Heart Surgery Discharge Instructions (Sternal precautions, Activity, Elastic hose, Incision care, Driving, Incentive spirometry, Smoking, [place], Work and other) Need Betadine to paint incision Medication reconciliation Importance of follow up care/ check on appointments Make calendar record temperature daily When to call [facility] at Home nurse, review instructions, phone list Incentive Spirometry, demonstration Visit 1- Begin discharge instruction for patient family and/ or caregiver using teach back method- Signs and symptoms of infection Disease characteristics Medicines and side effects Foods and nutrition/ appetite Infection control/ hand washing/ hygiene Visit 2- Continue teaching Discharge instructions- include additional information on smoking cessation , sternal dressing (sternal vac) Visit 3- Continue teaching- Cough and deep breathing, incision monitoring. Choose my plate Visit 4- Continue teaching- Discuss limitations Discuss how they are feeling Discuss progress toward goals Remaining visits- continue teaching and monitoring For any questions please call : Tuesday 8am-5pm Heart & Vascular Surgery Office ( Dr. Ruiz & Dr. Moyer), After Hours / Nights (5pm -8am) Weekends and Holidays Please call [facility] ([facility]) Charge Nurse PREVENA Single Use Negative Wound Therapy System Caregiver Instruction Sheet 1. A Prevena dressing system was applied to the chest incision during surgery , to promote wound healing. It works via a suction device (negative pressure wound therapy) to remove low to moderate levels of exudate (drainage) and infectious materials. We recommend that the device stay in place for up to seven days, from day of surgery. 2. Day of Surgery____8/ Day of Removal ___/ 3. The dressing should only be removed by a health senior care assistant. Please arrange removal of device to coincide with Home Health visit and or with Nursing staff at Rehab 4. If skin reddening or irritation of skin occurs, or excessive drainage, please notify the Cardiovascular Surgeons office at [phone]. 5. Light showering is permissible; however the pump should be disconnected and placed in safe location, where it will not get wet. The dressing should not be exposed to direct spray or submerged in water. No bath tub / shower only. Ensure the end of the tubing attached to the dressing is facing down so that water does not enter the top of the tube. 6. To remove Prevena dressing: press purple button to turn off device / remove the suction. Then disconnect the tubing from the pump. The fixation strips should be stretched away from the skin and the dressing lifted at one corner and peeled back until it has been fully removed. 7. After removal, it is ok to shower daily using liquid dial soap and clean wash cloth, rinse and pat dry, and leave incision open to air dry. For any concerns regarding Prevena dressing, and or wounds, please contact Milka Ruiz, patient navigator at [phone] or notify the Cardiovascular Surgeons office at [phone]. Incentive spirometry Q1 hr x 10, while awake, also use acapella device hourly whole awake Sternal Breast Bone Precautions: NO pushing or pulling, ( pt must use sternal pillow to support chest with all activities and with coughing ( takes up to 3 months breast bone to heal ) Daily incision care: ok to shower daily, no tub bath. Wash all incisions with liquid dial soap, clean wash cloth to each site, rinse and pat dry. Observe for any signs of infection, such as drainage which is dark yellow, goncalves, green or foul smelling. Immediately report to the surgeon any drainage from the chest incision, or legs, and for any abnormal drainage from the chest tube sites. Notify surgeon if any temp >101.5 degrees F. When specialty dressing removed/ or if you do not have one, continue to shower daily as above, then rinse and pat incision dry and paint with betadine daily x 5 days. Allow steri strips to fall off if you have any. Avoid lotions, creams, salves, oils, etc. for the first month Please see attached forms for additional instructions regarding post Open Heart specialty wound vacuum dressings. LEW or Prevena , Dressing to be removed by Nursing staff on _10/21/17 F/U appointment: as per DC instructions: PCP in 2 weeks, CV surgeon 2 weeks, Supervisor Remelt 3-4 weeks For any questions regarding incisions/ dressing / meds / post op care or above Symptoms, Tuesday 8am-5pm Heart & Vascular Surgery Office ( Dr. Ruiz & Dr. Moyer), After Hours / Nights (5pm -8am) Weekends and Holidays Please call [facility] ([facility]) Charge Nurse - Certification I have seen patient Chavez Reddy on 10/19/17. My clinical findings support the need for the requested home health care services because: Deconditioned with increased weakness I certify that my clinical findings support that this patient is homebound because: Post-op weakness (life vest ) (2) CAD (coronary artery disease), [place] coronary artery Qualifiers: [place] vs. transplanted heart: [place] heart
== END 2017-10-19 11:17 | disposition home health service (06) ==
LOC: NEDA 22:55 → NEPE 22:55 → NEPHCDU 10-10 05:18 → HCIS 10-11 13:26 → HCVI 10-14 13:20 → HCPC 10-16 21:13
PROVIDERS: ADMIT Internal Medicine; ATTEND Internal Medicine